=== PATIENT | female | born 1925 | race Caucasian/White ===

== ENCOUNTER 2016-08-29 14:31 | Inpatient (IN) ==
[2016-08-29] MEDS ORDERED: Acetaminophen 325 MG TABLET PO ONE (14:51)
--- NOTE | 2016-08-29 14:51 | Emergency Department Note ---
Disposition Clinical Impression: Generalized weakness, Sepsis affecting skin Cellulitis Qualifiers: Site of cellulitis: buttock Qualified Code(s): L03.317 - Cellulitis of buttock Disposition: Admitted As Inpatient Condition: Good Referrals: NO,PCP [Non-Partnered Physician] - Forms: ED Satisfaction Letter Time of Disposition: 20:16 General Adult HPI - General Chief complaint: ED Extremity Problem,Nontraumatic Stated complaint: " Leg Swelling" Time Seen by Provider: 08/29/16 14:32 Source: patient, EMS Mode of arrival: EMS Limitations: no limitations Nursing Notes Reviewed: Yes Vital Signs Reviewed: Yes - History of Present Illness HPI Narrative: 89-year-old female presents from home via EMS for generalized weakness and leg swelling. Patient lives at home by herself. Her children lived next door infrequently check on her. She is able to normally ambulate with a walker with some weakness. Today she has been more weak than usual. She says today she felt more lightheaded with the feeling of passing out when she got up to walk to the bathroom. She denies any fall or loss of consciousness today. Family reports a fall over a month ago. She only takes aspirin and a blood pressure medication she reports. She denies any history of congestive heart failure. Denies any history of cardiac ischemic disease. She denies any headache, fever , chest pain, shortness of breath, abdominal pain. Denies any urinary symptoms , bloody stool or blacked tarry stool. She denies any history of blood clots. She normally seen sitting in her chair was very independent she reports. Denies any surgeries in either leg. She denies any history of stroke. Pain Scale: 0 - Related Data Allergies Allergy/AdvReac Type Severity Reaction Status Date / Time No Known Allergies Allergy Verified 01/12/16 16:43 All systems ED: reviewed and negative except as stated. Constitutional: Reports: weakness. Denies: fever, chills Cardiovascular: Denies: chest pain Respiratory: Denies: cough, dyspnea Gastrointestinal: Denies: abdominal pain, nausea, vomiting, diarrhea, melena, hematochezia Genitourinary: Denies: urgency, dysuria Musculoskeletal: Denies: back pain, neck pain Integumentary: Denies: rash, abrasion Neurological: Reports: weakness. Denies: headache, numbness, vertigo Endocrine: Denies: fatigue Past Medical History - Past Medical History Attestation: Yes The following information was validated with the patient. Source: patient Medical history: Reports: GERD, hyperlipidemia, hypertension, CVA, TIA Surgical history: Reports: non-contributory Psychiatric history: Reports: no psych history COMPLIANCE PROFESSIONAL history: Reports: no COMPLIANCE PROFESSIONAL history - Social History Smoking Status: Never smoker Smokeless Tobacco Status: No Alcohol use: Reports: none Drug use: Reports: none Physical Exam - General Limitations: no limitations General appearance: alert, in no apparent distress - Head Head exam: atraumatic, normocephalic, normal inspection - Eye Eye exam: Present: normal appearance, PERRL, EOMI. Absent: scleral icterus - ENT ENT exam: normal exam, normal oropharynx, mucous membranes moist - Neck Neck exam: Present: normal inspection, full ROM, trachea midline - Chest Chest inspection: Present: normal inspection, symmetric chest wall rise. Absent : tenderness - Respiratory Respiratory exam: Present: normal lung sounds bilaterally. Absent: respiratory distress, wheezes - Cardiovascular Cardiovascular exam: Present: regular rate, normal rhythm, normal heart sounds. Absent: systolic murmur, diastolic murmur - Abdominal Exam Abdominal exam: Present: soft, Non-Tender, normal bowel sounds. Absent: tenderness, distention, guarding, rebound, rigidity - Rectal Exam Rectal exam: Present: other (left perirectal absecess, induration and erythema) - Extremities Exam Extremities exam: Present: normal inspection, full ROM, normal capillary refill , pedal edema (+2 pitting edema to left leg). Absent: tenderness, calf tenderness - Back Exam Back exam: Present: normal inspection, full ROM. Absent: tenderness, CVA tenderness (R), CVA tenderness (L), vertebral tenderness Back 1 view image: 1 - Area erythema and induration along the left buttocks concerning for possible abscess - Neurological Exam Neurological exam: Present: alert, oriented X3 - Expanded Neurological Exam Patient oriented to: Present: person, place, time Speech: Present: fluid speech Cranial nerves: EOM function (II, III, IV, ): Normal, facial sensation (V): Normal, facial palsy (VII): Normal, gag reflex (IX): Normal, spinal accessory function (XI): Normal, tongue deviation (XII): Normal Motor strength - LUE: 4/5 Motor strength - RUE: 4/5 Motor strength - LLE: 4/5 Motor strength - RLE: 4/5 - Psychiatric Psychiatric exam: Present: normal affect, normal mood - Skin Skin exam: Present: warm, dry, intact, normal color Course Course Narrative: 89-year-old female percents with concern of generalized weakness. Families at bedside and reports today she has been very weak and unable to get up. She had a recent fall month ago. The report the other day she was unable to get out of the toilet and this is something new. They also some swelling to the left lower extremity. Patient appears in no acute distress. She is awake alert and very pleasant. She is not septic appearing. She is tachycardic 100 and was found to have a elevated temperature 100.6. Aseptic workup was initiated which consisted of CT of the head, chest x-ray, urinalysis straight catheterization, basic blood work. Consideration for possible blood clot but patient does not meet the decision way pathway. At this time I do believe she is low risk for DVT. Patient and family are in agreement with this plan. Due to her generalized weakness will anticipate admission to the hospital she does live alone. - Reevaluation(s) Reevaluation #1: She has elevated white blood cell count 22.8. Patients non-septic appearing. Unable to find a source for infection. Head to toe examination was performed. She has a small abrasion to her left leg with some oozing, no signs of cellulitis. I rolled the patient on her side and checked her buttocks which reveals an area of erythema and induration that appears consistent with a bed sore and possible left perirectal abscess that appears to tract into the rectum. Will order a CT abd/pelvis with IV contrast. Lactate has been ordered. Blood cultures ordered. Anemia appears stable 9.7. Her sodium is 126. BNP and troponin are unremarkable. Believe her perirectal abscess is the source of her infection and white blood cell count. Patient family reports they noticed it yesterday. Patient reports a week ago falling onto her rocking chair. She denies any pain with defecation. Time: 17:10 Reevaluation #2: Patient has had a prior hip replacement. Due to some streaking artifacts the CT of the abdomen and pelvis was able unable to clearly depict any pocket of fluid. Clinically appeared to be in abscess however with bedside ultrasound there would only appear to be cellular changes in no pocket's or fluid. An incision and drainage was not performed at that time. At that time patient was very weak and unable to support herself or even sit up from laying. Patient is very weak. She will be appropriate for inpatient treatment of this cellulitis. Discuss this with the patient and the family and they are in agreement with plan. Placed on Unasyn for coverage of cellulitis. Impression is cellulitis, sepsis, generalized weakness. Time: 19:37 - Consultations Consultation #1: Spoke with on-call hospitalist lanette Weber to admit for sepsis, cellulitis , generalized weakness. No further orders at this time Time: 20:11 Vital Signs Temperature 100.6 F H 08/29/16 14:35 Pulse Rate 104 08/29/16 14:35 Respiratory Rate 18 08/29/16 14:35 Blood Pressure 164/69 08/29/16 14:35 O2 Sat by Pulse Oximetry 98 08/29/16 14:35 Temperature 100.6 F H 08/29/16 14:35 Pulse Rate 104 08/29/16 14:35 Respiratory Rate 18 08/29/16 14:35 Blood Pressure 164/69 08/29/16 14:35 O2 Sat by Pulse Oximetry 98 08/29/16 14:35 Oxygen Delivery Oxygen Delivery Room Air Medical Decision Making - Medical Records Medical records reviewed: Yes I reviewed the patient's medical records. - Lab Data Lab results reviewed: Yes I reviewed the patient's lab results. Result diagrams: 08/29/16 16:00 08/29/16 16:00 Lab Results 08/29/16 08/29/16 08/29/16 Range/Units 16:00 16:00 16:00 WBC 22.8 H (4.3-11.1) K/mcL RBC 3.45 L (3.82-4.97) M/mcL Hgb 9.7 L (11.5-15.4) g/dL Hct 28.2 L (35.3-44.9) % MCV 81.7 L (83.0-100.0) fL MCH 28.1 (28.0-33.3) pg MCHC 34.4 (31.6-35.5) g/dL RDW 14.2 (11.5-14.5) % Plt Count 201 (140-400) K/mcL MPV 9.4 (9.4-12.4) fL Immature Gran % 1.7 (0-4) % Seg Neutrophils % 90.2 % Lymphocytes % 2.5 % Monocytes % 5.5 % Eosinophils % 0.0 % Basophils % 0.1 % Neutrophils # 20.6 H (1.6-8.9) K/mcL Lymphocytes # 0.6 (0.6-4.6) K/mcL Monocytes # 1.3 (0.0-1.3) K/mcL Eosinophils # 0.0 (0.0-0.6) K/mcL Basophils # 0.0 (0.0-0.2) K/mcL Sodium 126 L (136-145) mEq/L Potassium 3.8 (3.5-4.5) mEq/L Chloride 95 L (98-109) mEq/L Carbon Dioxide 21 (19-29) mEq/L BUN 13 (7-20) mg/dL Creatinine 0.79 (0.57-1.11) mg/dL Est GFR ( Amer) > 60 (> 60) Est GFR (Non-Af Amer) > 60 (> 60) BUN/Creatinine Ratio 16 (6-26) Glucose 117 H (70-99) mg/dL Calculated Osmolality 263 L (280-300) Lactic Acid (0.5-2.2) mmol/L Calcium 8.5 L (8.6-10.8) mg/dL Total Bilirubin (0.2-1.2) mg/dL Direct Bilirubin (0.0-0.5) mg/dL Indirect Bilirubin (0.0-1.2) mg/dL AST (5-34) Units/L ALT (0-55) Units/L Alkaline Phosphatase (38-126) Units/L Troponin I (0-0.03) ng/mL B-Natriuretic Peptide (0-100) pg/mL Serum Total Protein (6.0-8.3) g/dL Albumin (3.5-5.0) g/dL Globulin (2.4-3.5) g/dL Albumin/Globulin Ratio (1.1-2.2) Lipase (8-78) Units/L Urine Color Yellow (Yellow) Urine Clarity Clear (Clear) Urine pH 7.0 (5.0-8.0) pH Units Ur Specific [place] 1.020 (1.010-1.025) Urine Protein Trace (Neg-Trace) mg/dL Urine Glucose (UA) Normal (Normal) mg/dL Urine Ketones Trace H (Negative) mg/dL Urine Blood Moderate H (Negative) Urine Nitrite Negative (Negative) Urine Bilirubin Negative (Negative) Urine Urobilinogen Normal (Normal) mg/dL Ur Leukocyte Esterase Negative (Negative) Urine Microscopic RBC 15-30 H (0-3) per hpf Urine Microscopic WBC 0-3 (0-3) per hpf Ur Squamous Epith Cells Moderate H (None-Few) per lpf Urine Bacteria None Seen (None-Few) per hpf Hyaline Casts None Seen (None-Few) per lpf Ur Culture Indicated? NO (NO) 08/29/16 08/29/16 08/29/16 Range/Units 16:00 16:00 16:00 WBC (4.3-11.1) K/mcL RBC (3.82-4.97) M/mcL Hgb (11.5-15.4) g/dL Hct (35.3-44.9) % MCV (83.0-100.0) fL MCH (28.0-33.3) pg MCHC (31.6-35.5) g/dL RDW (11.5-14.5) % Plt Count (140-400) K/mcL MPV (9.4-12.4) fL Immature Gran % (0-4) % Seg Neutrophils % % Lymphocytes % % Monocytes % % Eosinophils % % Basophils % % Neutrophils # (1.6-8.9) K/mcL Lymphocytes # (0.6-4.6) K/mcL Monocytes # (0.0-1.3) K/mcL Eosinophils # (0.0-0.6) K/mcL Basophils # (0.0-0.2) K/mcL Sodium (136-145) mEq/L Potassium (3.5-4.5) mEq/L Chloride (98-109) mEq/L Carbon Dioxide (19-29) mEq/L BUN (7-20) mg/dL Creatinine (0.57-1.11) mg/dL Est GFR ( Amer) (> 60) Est GFR (Non-Af Amer) (> 60) BUN/Creatinine Ratio (6-26) Glucose (70-99) mg/dL Calculated Osmolality (280-300) Lactic Acid (0.5-2.2) mmol/L Calcium (8.6-10.8) mg/dL Total Bilirubin 0.8 (0.2-1.2) mg/dL Direct Bilirubin 0.4 (0.0-0.5) mg/dL Indirect Bilirubin 0.4 (0.0-1.2) mg/dL AST 14 (5-34) Units/L ALT < 6 (0-55) Units/L Alkaline Phosphatase 78 (38-126) Units/L Troponin I 0.01 (0-0.03) ng/mL B-Natriuretic Peptide 88 (0-100) pg/mL Serum Total Protein 6.1 (6.0-8.3) g/dL Albumin 2.7 L (3.5-5.0) g/dL Globulin 3.4 (2.4-3.5) g/dL Albumin/Globulin Ratio 0.8 L (1.1-2.2) Lipase 4 L (8-78) Units/L Urine Color (Yellow) Urine Clarity (Clear) Urine pH (5.0-8.0) pH Units Ur Specific [place] (1.010-1.025) Urine Protein (Neg-Trace) mg/dL Urine Glucose (UA) (Normal) mg/dL Urine Ketones (Negative) mg/dL Urine Blood (Negative) Urine Nitrite (Negative) Urine Bilirubin (Negative) Urine Urobilinogen (Normal) mg/dL Ur Leukocyte Esterase (Negative) Urine Microscopic RBC (0-3) per hpf Urine Microscopic WBC (0-3) per hpf Ur Squamous Epith Cells (None-Few) per lpf Urine Bacteria (None-Few) per hpf Hyaline Casts (None-Few) per lpf Ur Culture Indicated? (NO) 08/29/16 Range/Units 16:00 WBC (4.3-11.1) K/mcL RBC (3.82-4.97) M/mcL Hgb (11.5-15.4) g/dL Hct (35.3-44.9) % MCV (83.0-100.0) fL MCH (28.0-33.3) pg MCHC (31.6-35.5) g/dL RDW (11.5-14.5) % Plt Count (140-400) K/mcL MPV (9.4-12.4) fL Immature Gran % (0-4) % Seg Neutrophils % % Lymphocytes % % Monocytes % % Eosinophils % % Basophils % % Neutrophils # (1.6-8.9) K/mcL Lymphocytes # (0.6-4.6) K/mcL Monocytes # (0.0-1.3) K/mcL Eosinophils # (0.0-0.6) K/mcL Basophils # (0.0-0.2) K/mcL Sodium (136-145) mEq/L Potassium (3.5-4.5) mEq/L Chloride (98-109) mEq/L Carbon Dioxide (19-29) mEq/L BUN (7-20) mg/dL Creatinine (0.57-1.11) mg/dL Est GFR ( Amer) (> 60) Est GFR (Non-Af Amer) (> 60) BUN/Creatinine Ratio (6-26) Glucose (70-99) mg/dL Calculated Osmolality (280-300) Lactic Acid 1.1 (0.5-2.2) mmol/L Calcium (8.6-10.8) mg/dL Total Bilirubin (0.2-1.2) mg/dL Direct Bilirubin (0.0-0.5) mg/dL Indirect Bilirubin (0.0-1.2) mg/dL AST (5-34) Units/L ALT (0-55) Units/L Alkaline Phosphatase (38-126) Units/L Troponin I (0-0.03) ng/mL B-Natriuretic Peptide (0-100) pg/mL Serum Total Protein (6.0-8.3) g/dL Albumin (3.5-5.0) g/dL Globulin (2.4-3.5) g/dL Albumin/Globulin Ratio (1.1-2.2) Lipase (8-78) Units/L Urine Color (Yellow) Urine Clarity (Clear) Urine pH (5.0-8.0) pH Units Ur Specific [place] (1.010-1.025) Urine Protein (Neg-Trace) mg/dL Urine Glucose (UA) (Normal) mg/dL Urine Ketones (Negative) mg/dL Urine Blood (Negative) Urine Nitrite (Negative) Urine Bilirubin (Negative) Urine Urobilinogen (Normal) mg/dL Ur Leukocyte Esterase (Negative) Urine Microscopic RBC (0-3) per hpf Urine Microscopic WBC (0-3) per hpf Ur Squamous Epith Cells (None-Few) per lpf Urine Bacteria (None-Few) per hpf Hyaline Casts (None-Few) per lpf Ur Culture Indicated? (NO) - Radiology Data Radiology results reviewed: Yes I reviewed the patient's radiology results. Chest X-Ray 08/29/16 14:51 IMPRESSION: No acute cardiopulmonary disease. D/ / Aroldo Verma MD / Aroldo Verma MD Interpreting Provider: Aroldo Verma MD Head CT 08/29/16 14:55 IMPRESSION: No acute intracranial abnormality. D/ / Michael Little MD / Michael Little MD Interpreting Provider: Michael Little MD Abdomen/Pelvis CT 08/29/16 17:09 IMPRESSION: 1. Ecchymosis or cellulitis of the left buttock. No drainable fluid collection is demonstrated. No evidence of perianal or perirectal abscess within the limits imposed by streak artifact 2. Distal common bile duct stones, status post cholecystectomy. Bile ducts are within normal limits in caliber. Recommend correlation with serum bilirubin 3. Colonic diverticulosis 4. Multiple thoracic and lumbar compression fractures of indeterminate age. If the patient has acute back pain, MRI would be able to determine acuity of these fractures D/ / Marcin Peñaloza MD / Marcin Peñaloza MD Interpreting Provider: Marcin Peñaloza MD Attestation Statement - Attestation Attestation: I examined this patient and my medical decision-making was reviewed with the DOORPERSON OR LUGGAGE PORTER/PA/Advanced Practice Nurse/Resident Physician. I agree with the documented findings, disposition and treatment plan as described except to the extent set forth below. will need to do CT to eval for perirectal abscess. could be cause of wbc count and fever. will need to be admitted. iv antibiotics.
[2016-08-29 16:08] LABS: Basophils % 0.1 %; Hematocrit 28.2 % (35.3-44.9); Hemoglobin 9.7 g/dL (11.5-15.4); Immature Granulocytes % 1.7 % (0-4); Lymphocytes # 0.6 K/mcL (0.6-4.6); Lymphocytes % 2.5 %; Mean Corpuscular HGB Conc 34.4 g/dL (31.6-35.5); Mean Corpuscular Hemoglobin 28.1 pg (28.0-33.3); Mean Corpuscular Volume 81.7 fL (83.0-100.0); Mean Platelet Volume 9.4 fL (9.4-12.4); Monocytes # 1.3 K/mcL (0.0-1.3); Monocytes % 5.5 %; Neutrophils # 20.6 K/mcL (1.6-8.9); Platelet Count 201 K/mcL (140-400); Red Blood Count 3.45 M/mcL (3.82-4.97); Red Cell Distribution Width 14.2 % (11.5-14.5); Segmented Neutrophils % 90.2 %
[2016-08-29 16:12] LABS: Bilirubin,Urine Negative (Negative); Blood,Urine Moderate (Negative); Clarity,Urine Clear (Clear); Color,Urine Yellow (Yellow); Glucose,Urine (UA) Normal (Normal); Ketones,Urine Trace mg/dL (Negative); Leukocyte Esterase,Urine Negative (Negative); Nitrite,Urine Negative (Negative); Protein,Urine Trace mg/dL (Neg-Trace); Urobilinogen,Urine Normal (Normal)
[2016-08-29 16:13] LABS: Bacteria,Urine None Seen per hpf (None-Few); Hyaline Casts,Urine None Seen per lpf (None-Few); RBC,Urine 15-30 per hpf (0-3); Squamous Epithelial Cell,Urine Moderate per lpf (None-Few); WBC,Urine 0-3 per hpf (0-3)
[2016-08-29 16:22] LABS: BUN/Creatinine Ratio 16 (6-26); Blood Urea Nitrogen 13 mg/dL (7-20); Calcium 8.5 mg/dL (8.6-10.8); Carbon Dioxide 21 mEq/L (19-29); Chloride 95 mEq/L (98-109); Glucose 117 mg/dL (70-99); Osmolality,Calculated 263 (280-300); Potassium 3.8 mEq/L (3.5-4.5); Sodium 126 mEq/L (136-145); eGFR For African Americans > 60 (> 60); eGFR For Non-African Americans > 60 (> 60)
[2016-08-29] MEDS ORDERED: 0.9 % Sodium Chloride 1,000 ML IVC ONE (16:44)
[2016-08-29 16:56] LABS: Albumin 2.7 g/dL (3.5-5.0); Albumin/Globulin Ratio 0.8 (1.1-2.2); Alkaline Phosphatase 78 Units/L (38-126); Aspartate Amino Transferase 14 Units/L (5-34); Bilirubin,Direct 0.4 mg/dL (0.0-0.5); Bilirubin,Indirect 0.4 mg/dL (0.0-1.2); Bilirubin,Total 0.8 mg/dL (0.2-1.2); Globulin 3.4 g/dL (2.4-3.5); Lipase 4 Units/L (8-78); Total Protein 6.1 g/dL (6.0-8.3)
[2016-08-29 16:57] LABS: Alanine Aminotransferase < 6 Units/L (0-55)
[2016-08-29] MEDS ORDERED: Propofol 500 MG/50 ML INFUS..BTL ONE (17:45)
[2016-08-29] MEDS ORDERED: Lidocaine 1% 20 ML MDV ID ONE (18:39)
[2016-08-29] MEDS ORDERED: Ampicillin/Sulbactam 1,500 MG in 0.9 % Sodium Chloride Mini Bag 100 ML IVPB ONE (20:07)
[2016-08-29] MEDS ORDERED: Naloxone 0.4 MG/ML INJ IVP PRN (22:33)
[2016-08-29] MEDS ORDERED: Acetaminophen 325 MG TABLET PO PRN (22:33)
[2016-08-29] MEDS ORDERED: Ondansetron 4 MG/2 ML VIAL IVP PRN (22:33)
[2016-08-29] MEDS ORDERED: D5% in Water 1,000 ML IVC PRN (22:36)
[2016-08-29] MEDS ORDERED: Dextrose Gel 15 GM PO PRN ×2 (22:36)
[2016-08-29] MEDS ORDERED: *HR* Dextrose 50 % in Water (Syg) 50 ML SYRINGE IVP PRN (22:36)
[2016-08-29 22:49] LABS: Hemoglobin A1C 4.9 %
--- NOTE | 2016-08-29 22:51 | Internal Med History&Physical ---
Date of Encounter: 08/30/16 Time of Encounter: 23:00 Assessment and Plan (1) Sepsis Current visit: Yes Status: Acute Sepsis - present on admission, likely secondary to acute cellulitis of left buttock with probable gluteal abscess - possible gram-positive organism Continue IV Zosyn and IV vancomycin Continue IV fluids CT of the head is negative for any acute intracranial abnormality Chest x-ray is negative for any acute cardiopulmonary disease CT of the abdomen and pelvis reveals ecchymosis and cellulitis of left buttock with no drainable fluid EKG reveals sinus tachycardia with no acute ST-T changes, troponin negative Labs in a.m. Qualifiers: Sepsis type: sepsis due to unspecified organism Qualified Code(s): A41.9 - Sepsis, unspecified organism (2) Cellulitis Current visit: Yes Status: Acute Cellulitis of left buttock, possible abscess with induration Continue IV antibiotics CT shows cellulitis of left buttock with no drainable fluid collection Bedside ultrasound done in the ED did not reveal any pockets of fluid collection Qualifiers: Site of cellulitis: buttock Qualified Code(s): L03.317 - Cellulitis of buttock (3) DVT prophylaxis Current visit: Yes Status: Acute Internal Medicine - H&P: HPI Chief complaint: Generalized weakness Admitted From: Emergency Dept History of present illness: Ms. Littlejohn is a 89 year old female with past medical history of hypertension and hyperlipidemia. She presents to the ED with complaints of generalized weakness that started about 1-2 days ago. Patient states she is normally able to ambulate with walker, but she has been feeling weak and more fatigued than usual. Patient apparently had some lightheadedness and thinks that she was about to pass out when she was about to walk to the bathroom. No loss of consciousness and no fall. Patient states she lives by herself and her children check on her. She did have a fall about a month ago. Patient denies chest pain and denies shortness. Denies palpitations denies dizziness or cough at present. Patient also denies abdominal pain, vomiting or diarrhea. On examination patient is awake and alert. Not in any distress. She is able to provide all history and is oriented to time place and person. No family members at the time of examination. Patient also complains of having a small boil or sore on her right buttock. Complains of mild pain at times. No complaints of discharge. She mentions that her children have told her to be evaluated for the boil. Initially workup revealed elevated white count, fever and cellulitis of the left buttock. No evidence of perianal or perirectal abscess. Patient is being admitted for sepsis, likely due to cellulitis of the gluteal region. She will need IV antibiotics and fluids. Patient has been explained about her condition and plan of care. She understood and agreed. No unanswered questions. CODE STATUS DO NOT RESUSCITATE and DO NOT INTUBATE status. Past Med Surg Social Fam HX - Past Medical History Medical history: GERD, hyperlipidemia, hypertension, TIA Psychiatric history: no psych history - Past Surgical History Surgical History: non-contributory - Social History Smoking Status: Never smoker Smokeless Tobacco Status: No Alcohol use: none Drug use: none Internal Medicine - H&P: Meds Allergies No Known Allergies Allergy (Verified 01/12/16 16:43) All Systems PM: A 10-system review of systems was performed and is negative for pertinent findings except as documented above in the HPI. - Constitutional Constitutional: fatigue, weakness, no fever(s) - EENT Eyes: no blurry vision, no loss of vision - Cardiovascular Cardiovascular ROS IM: no chest pain, no diaphoresis, no dyspnea, no dyspnea on exertion, no lightheadedness, no syncope - Respiratory Respiratory: no cough, no dyspnea, no hemoptysis, no dyspnea on exertion, no wheezing, no chest congestion - Gastrointestinal Gastrointestinal: no abdominal pain, no cramping, no diarrhea, no nausea, no vomiting - Genitourinary Genitourinary: no dysuria - Musculoskeletal Musculoskeletal ROS IM: no arthralgias - Integumentary Integumentary IM: erythema, sores - Neurological Neurological ROS: dizziness, no abnormal gait, no abnormal speech, no focal weakness, no loss of vision - Constitutional Vitals: Temp Pulse Resp BP Pulse Ox 98.3 F 93 14 127/67 98 08/29/16 21:31 08/29/16 21:31 08/29/16 21:31 08/29/16 21:31 08/29/16 21:31 General appearance: Present: cachectic, A&O X 3, pleasant, no acute distress, answers questions appropriately - Head Head exam: Present: atraumatic - Eye Eye exam: Present: EOMI - ENT ENT exam: Present: mucous membranes moist - Neck Neck exam general surgery: Present: supple - Respiratory Respiratory exam: Present: CTAB. Absent: rales, rhonchi, wheezes, tachypnea - Cardiovascular Cardiovascular exam: Present: RRR, +S1, +S2 - GI/Abdominal GI/Abdominal exam: Present: soft. Absent: distended, firm, guarding, tenderness - Extremities Exam Extremities exam: Present: radial pulses palpable and symetrical. Absent: cyanotic, pedal edema - Neurological Exam Neurological exam: Present: alert, oriented X3, no focal deficits - Skin Skin exam: Present: erythema Additional comments: Erythema and mild tenderness over left gluteal region, cellulitis, possible abscess with induration Internal Med - H&P Results - Labs CBC & Chem 7: 08/29/16 16:00 08/29/16 16:00
[2016-08-29] MEDS ORDERED: Vancomycin 750 MG in D5% in Water 250 ML IVPB ONE (23:30)
[2016-08-29] MEDS: Piperacillin/Tazobactam 3.375 GM in D5% in Water (Mini-Bag+) 100 ML IVPB SCH (23:39)
[2016-08-29] MEDS: 0.9 % Sodium Chloride 1,000 ML IVC SCH (23:39)
[2016-08-30] MEDS: Insulin LISPRO 300 UNITS/3 ML VIAL SQ SCH ×4 (00:44→18:13)
[2016-08-30 04:26] LABS: Hematocrit 25.9 % (35.3-44.9); Hemoglobin 8.7 g/dL (11.5-15.4); Mean Corpuscular HGB Conc 33.6 g/dL (31.6-35.5); Mean Corpuscular Hemoglobin 27.3 pg (28.0-33.3); Mean Corpuscular Volume 81.2 fL (83.0-100.0); Mean Platelet Volume 9.5 fL (9.4-12.4); Platelet Count 200 K/mcL (140-400); Red Blood Count 3.19 M/mcL (3.82-4.97); Red Cell Distribution Width 13.9 % (11.5-14.5)
[2016-08-30 04:30] LABS: INR 1.4; Prothrombin Time 15.7 Seconds (9.4-12.1)
[2016-08-30 04:43] LABS: Albumin/Globulin Ratio 0.7 (1.1-2.2); Alkaline Phosphatase 71 Units/L (38-126); Aspartate Amino Transferase 11 Units/L (5-34); BUN/Creatinine Ratio 17 (6-26); Bilirubin,Total 0.9 mg/dL (0.2-1.2); Blood Urea Nitrogen 12 mg/dL (7-20); Calcium 7.7 mg/dL (8.6-10.8); Carbon Dioxide 21 mEq/L (19-29); Chloride 99 mEq/L (98-109); Globulin 2.9 g/dL (2.4-3.5); Glucose 123 mg/dL (70-99); Magnesium 1.1 mg/dL (1.6-2.6); Osmolality,Calculated 261 (280-300); Potassium 3.4 mEq/L (3.5-4.5); Sodium 125 mEq/L (136-145); eGFR For African Americans > 60 (> 60); eGFR For Non-African Americans > 60 (> 60)
[2016-08-30 04:44] LABS: Alanine Aminotransferase < 6 Units/L (0-55); Albumin 2.1 g/dL (3.5-5.0)
[2016-08-30 04:55] LABS: Lymphocytes # 0.9 K/mcL (0.6-4.6); Neutrophils # 20.5 K/mcL (1.6-8.9)
[2016-08-30 04:56] LABS: Platelet Estimate Normal (Normal)
[2016-08-30] MEDS ORDERED: Vancomycin 1,000 MG in D5% in Water 250 ML IVPB SCH (06:00)
[2016-08-30] MEDS: *HR* Heparin 5,000 UNIT/ML VIAL SQ SCH ×2 (06:06→18:18)
[2016-08-30] MEDS: Famotidine 20 MG/2 ML VIAL IVP SCH ×2 (06:06→18:19)
[2016-08-30] MEDS ORDERED: Potassium Chloride Elixir 20 MEQ/15 ML UDC PO ONE (08:07)
--- NOTE | 2016-08-30 08:13 | Internal Med Progress Note ---
Date of Encounter: 09/10/16 Time of Encounter: 08:10 - Assessment and plan (1) SIRS due to infectious process without acute organ dysfunction Status: Acute (2) Abscess, gluteal, left Status: Acute (3) Hyponatremia Status: Acute (4) Hypokalemia Status: Acute (5) Cellulitis Status: Acute Qualifiers: Site of cellulitis: buttock Qualified Code(s): L03.317 - Cellulitis of buttock (6) DVT prophylaxis Status: Acute - Subjective Interval history: 08/30 Ms. Tae Shelton is an 89-year-old female admitted for left gluteal abscess/ cellulitis, hyponatremia and hypokalemia. Patient complain of fatigue/ dizziness and a fall at home a month ago. She is on IV vancomycin and Zosyn. She is a DNR order CBC and CMP daily and continue antibiotics while cultures are pending Later during the day she became slightly confused will be reevaluated - Constitutional Vitals: Temp Pulse Resp BP Pulse Ox 97.7 F 87 14 123/61 97 08/30/16 05:58 08/30/16 05:35 08/30/16 05:35 08/30/16 05:35 08/30/16 05:35 General appearance: Present: cachectic, A&O X 3, pleasant, no acute distress, answers questions appropriately - Head Head exam: Present: atraumatic, normocephalic - Eye Eye exam: Present: PERRL, conjuntiva pink, sclera anicteric Pupils: Present: PERRL - Neck Neck exam general surgery: Present: supple, trachea midline. Absent: lymphadenopathy - Respiratory Respiratory exam: Present: CTAB. Absent: accessory muscle use, rales, rhonchi, wheezes - Cardiovascular Cardiovascular exam: Present: RRR, +S1, +S2. Absent: diastolic murmur, gallop, rubs, systolic murmur - GI/Abdominal GI/Abdominal exam: Present: normal bowel sounds, soft, no peritoneal signs. Absent: distended, tenderness - Extremities Exam Extremities exam: Present: warm, radial pulses palpable and symetrical. Absent : calf tenderness, cyanotic, pedal edema - Neurological Exam Neurological exam: Present: CN II-XII intact, no focal deficits. Absent: pronater drift, facial droop, speech deficit Additional comments: Patient is slightly confused but very pleasant answer my questions well and follow the commands. Moving all extremities plantars downward bilaterally - Skin Skin exam: Present: dry, intact Internal Medicine: Result - Labs CBC & Chem 7: 09/03/16 04:54 09/03/16 04:54 Labs: Short CBC 08/30/16 Range/Units 04:05 WBC 21.4 H (4.3-11.1) K/mcL Hgb 8.7 L (11.5-15.4) g/dL Hct 25.9 L (35.3-44.9) % Plt Count 200 (140-400) K/mcL Neutrophils # 20.5 H (1.6-8.9) K/mcL BMP 08/30/16 04:05 Sodium 125 L Potassium 3.4 L Chloride 99 Carbon Dioxide 21 BUN 12 Creatinine 0.72 Glucose 123 H Calcium 7.7 L Liver Function 08/30/16 Range/Units 04:05 Total Bilirubin 0.9 (0.2-1.2) mg/dL AST 11 (5-34) Units/L ALT < 6 (0-55) Units/L Alkaline Phosphatase 71 (38-126) Units/L Albumin 2.1 L D (3.5-5.0) g/dL - ABG Interpretation ABG results: PT/INR, D-dimer PT 15.7 Seconds (9.4-12.1) H 08/30/16 04:05 Consult Discharge Plan - Plan Referrals: Estuardo Wong DO [Primary Care Provider] - Prescriptions: Doxycycline 100 mg PO BID #14 capsule
[2016-08-30] MEDS: Aspirin 81 MG TAB.CHEW PO SCH (08:45)
[2016-08-30] MEDS ORDERED: Vancomycin 750 MG in D5% in Water 250 ML IVPB ONE (12:28)
[2016-08-30] MEDS ORDERED: Magnesium Sulfate 2 GM in D5% in Water 100 ML IVPB ONE (12:34)
[2016-08-30] MEDS: Piperacillin/Tazobactam 3.375 GM in D5% in Water (Mini-Bag+) 100 ML IVPB SCH (12:36)
--- NOTE | 2016-08-30 13:39 | Electrocardiograph Report ---
[place] [id number] Test Date: 2016-08-29 Pat Name: Nishi Littlejohn Department: 102 Room: 3A12 Gender: F Billing Collections Specialist: : [id number] Requested By: Martin Juarez Order Number: [id number] Reading MD: Dimitris Iyer MD Measurements Intervals [place] Rate: 104 P: 59 [place]: 171 QRS: 35 QRSD: 74 T: 60 QT: 291 QTc: 352 Interpretive Statements SINUS TACHYCARDIA WITH OCCASIONAL VENTRICULAR PREMATURE COMPLEXES BASELINE ARTIFACT Electronically Signed On 08-30-2016 13:37:57 EDT by Dimitris Iyer MD
[2016-08-31] MEDS: Insulin LISPRO 300 UNITS/3 ML VIAL SQ SCH ×2 (01:18→08:10)
[2016-08-31] MEDS: Piperacillin/Tazobactam 3.375 GM in D5% in Water (Mini-Bag+) 100 ML IVPB SCH ×3 (01:31→23:22)
[2016-08-31] MEDS: 0.9 % Sodium Chloride 1,000 ML IVC SCH ×3 (01:31→23:17)
[2016-08-31 06:01] LABS: Hemoglobin 8.5 g/dL (11.5-15.4); Mean Corpuscular Hemoglobin 27.9 pg (28.0-33.3); Mean Platelet Volume 9.7 fL (9.4-12.4); Platelet Count 196 K/mcL (140-400); Red Blood Count 3.05 M/mcL (3.82-4.97); Red Cell Distribution Width 14.2 % (11.5-14.5)
[2016-08-31] MEDS: Famotidine 20 MG/2 ML VIAL IVP SCH (06:07)
[2016-08-31] MEDS: *HR* Heparin 5,000 UNIT/ML VIAL SQ SCH ×2 (06:07→18:37)
[2016-08-31 06:17] LABS: Albumin/Globulin Ratio 0.6 (1.1-2.2); Alkaline Phosphatase 69 Units/L (38-126); Aspartate Amino Transferase 9 Units/L (5-34); BUN/Creatinine Ratio 11 (6-26); Bilirubin,Total 0.8 mg/dL (0.2-1.2); Blood Urea Nitrogen 9 mg/dL (7-20); Calcium 7.7 mg/dL (8.6-10.8); Carbon Dioxide 21 mEq/L (19-29); Chloride 100 mEq/L (98-109); Glucose 101 mg/dL (70-99); Osmolality,Calculated 263 (280-300); Potassium 3.4 mEq/L (3.5-4.5); Sodium 127 mEq/L (136-145); Total Protein 4.9 g/dL (6.0-8.3); eGFR For African Americans > 60 (> 60); eGFR For Non-African Americans > 60 (> 60)
[2016-08-31 06:18] LABS: Alanine Aminotransferase < 6 Units/L (0-55); Albumin 1.9 g/dL (3.5-5.0)
[2016-08-31 06:40] LABS: Lymphocytes # 0.7 K/mcL (0.6-4.6); Monocytes # 0.7 K/mcL (0.0-1.3); Neutrophils # 16.4 K/mcL (1.6-8.9); Platelet Estimate Normal (Normal)
[2016-08-31] MEDS ORDERED: Potassium Chloride Elixir 20 MEQ/15 ML UDC PO ONE (07:54)
[2016-08-31] MEDS ORDERED: Vancomycin 1,000 MG in D5% in Water 250 ML IVPB ONE (07:55)
[2016-08-31] MEDS: Aspirin 81 MG TAB.CHEW PO SCH (08:10)
[2016-08-31] MEDS ORDERED: Lidocaine 1% 20 ML MDV INFILT ONE (14:00)
--- NOTE | 2016-08-31 14:34 | General Surgery Consult Note ---
<Marnie Carrera Tiffanie - Last Filed: 09/01/16 15:30> Date of Encounter: 09/01/16 Time of Encounter: 10:15 Assessment and Plan (1) Abscess, gluteal, left Current Visit: Yes Status: Acute I&D of abscess Wound cultures- gram stain, aerobic and anaerobic Wound care daily- will transfer to [facility] at discharge Supportive care/pain control IV antibiotics- Zosyn and Vancomycin (await culture results) Will continue to follow and assess progress History of Present Illness Consult date: 08/31/16 Reason for consult: other (left buttock abscess/cellulitis) Requesting physician: Karen Webb History of present illness: Ms. Littlejohn is a very pleasant 89-year-old female who presented to the emergency department at the request of her family with complaints of generalized weakness. She was admitted to the hospital for further workup and evaluation. The family reports much of the history is the patient is pleasantly confused secondary to her dementia. They do report that she has had a sore area to her left buttock for approximately 1 week. It has been red and inflamed and started draining in the last couple of days. They report purulent drainage from the area. She has never had any areas like this in the past. She does have an elevated white blood cell count. Denies any fevers or chills. We have been asked to see and evaluate her for incision and drainage of the affected area to the left buttock. Past Med Surg Social Fam HX - Past Medical History Medical history: GERD, hyperlipidemia, hypertension, TIA Psychiatric history: no psych history - Past Surgical History Surgical History: non-contributory - Social History Smoking Status: Never smoker Smokeless Tobacco Status: No Alcohol use: none Drug use: none Medications and Allergies Aspirin 81 mg PO DAILY 08/30/16 [History] Ferrous Sulfate [Iron] 325 mg PO DAILY 08/30/16 [History] Lisinopril [Zestril] 5 mg PO DAILY 08/30/16 [History] Magnesium Oxide [Mgo] 400 mg PO DAILY 08/30/16 [History] Omeprazole [PriLOSEC] 20 mg PO DAILY 08/30/16 [History] Allergies No Known Allergies Allergy (Verified 01/12/16 16:43) Review of Systems All systems PM: reviewed and no additional remarkable complaints except as stated (in the HPI (focal history)) All systems PM: A 10-system review of systems was performed and is negative for pertinent findings except as documented above in the HPI. General Surgery Exam Initial Vital Signs Temp Pulse Resp BP Pulse Ox 100.6 F H 104 18 164/69 98 08/29/16 14:35 08/29/16 14:35 08/29/16 14:35 08/29/16 14:35 08/29/16 14:35 - General physical appearance well developed, well nourished, no distress, other (pleasantly confused) - Eyes normal ocular movement - ENT normal mucosa, atraumatic, normocephalic - Neck trachea midline - Respiratory normal respiratory effort, clear to auscultation - Cardiovascular Cardiovascular exam: Present: RRR - Abdomen Abdomen general surgery: Present: bowel sounds present, soft, non tender - Incision Incision: Present: draining, erythema, purulent, indurated, open (left buttock) - Integumentary Integumentary general surgery: Present: warm and dry - Neurologic Present: CN 2-12 grossly intact - Musculoskeletal Present: other (generalized weakness) - Psychiatric Psychiatric general surgery: Present: appropriate, oriented to person, speech is normal Exam Initial Vital Signs Temp Pulse Resp BP Pulse Ox 100.6 F H 104 18 164/69 98 08/29/16 14:35 08/29/16 14:35 08/29/16 14:35 08/29/16 14:35 08/29/16 14:35 Results - Labs 09/01/16 04:40 09/01/16 04:40 Abnormal lab results WBC 17.8 K/mcL (4.3-11.1) H 08/31/16 05:42 RBC 3.05 M/mcL (3.82-4.97) L 08/31/16 05:42 Hgb 8.5 g/dL (11.5-15.4) L 08/31/16 05:42 Hct 25.0 % (35.3-44.9) L 08/31/16 05:42 MCV 82.0 fL (83.0-100.0) L 08/31/16 05:42 MCH 27.9 pg (28.0-33.3) L 08/31/16 05:42 Band Neutrophils % 18.0 % (0-4) H 08/31/16 05:42 Neutrophils # 16.4 K/mcL (1.6-8.9) H 08/31/16 05:42 PT 15.7 Seconds (9.4-12.1) H 08/30/16 04:05 Sodium 127 mEq/L (136-145) L 08/31/16 05:42 Potassium 3.4 mEq/L (3.5-4.5) L 08/31/16 05:42 Glucose 101 mg/dL (70-99) H 08/31/16 05:42 POC Glucose 123 (58-89) H 08/30/16 16:10 Calculated Osmolality 263 (280-300) L 08/31/16 05:42 Calcium 7.7 mg/dL (8.6-10.8) L 08/31/16 05:42 Magnesium 1.1 mg/dL (1.6-2.6) L 08/30/16 04:05 Serum Total Protein 4.9 g/dL (6.0-8.3) L 08/31/16 05:42 Albumin 1.9 g/dL (3.5-5.0) L 08/31/16 05:42 Albumin/Globulin Ratio 0.6 (1.1-2.2) L 08/31/16 05:42 Lipase 4 Units/L (8-78) L 08/29/16 16:00 Urine Ketones Trace mg/dL (Negative) H 08/29/16 16:00 Urine Blood Moderate (Negative) H 08/29/16 16:00 Urine Microscopic RBC 15-30 per hpf (0-3) H 08/29/16 16:00 Ur Squamous Epith Cells Moderate per lpf (None-Few) H 08/29/16 16:00 Vancomycin Trough 8.9 mcg/mL (10-20) L 08/31/16 05:42 Diabetes panel 08/31/16 Range/Units 05:42 Sodium 127 L (136-145) mEq/L Potassium 3.4 L (3.5-4.5) mEq/L Chloride 100 (98-109) mEq/L Carbon Dioxide 21 (19-29) mEq/L BUN 9 (7-20) mg/dL Creatinine 0.80 (0.57-1.11) mg/dL Glucose 101 H (70-99) mg/dL Calcium 7.7 L (8.6-10.8) mg/dL AST 9 (5-34) Units/L ALT < 6 (0-55) Units/L Alkaline Phosphatase 69 (38-126) Units/L Albumin 1.9 L (3.5-5.0) g/dL Calcium panel 08/31/16 Range/Units 05:42 Calcium 7.7 L (8.6-10.8) mg/dL Albumin 1.9 L (3.5-5.0) g/dL Pituitary panel 08/31/16 Range/Units 05:42 Sodium 127 L (136-145) mEq/L Potassium 3.4 L (3.5-4.5) mEq/L Chloride 100 (98-109) mEq/L Carbon Dioxide 21 (19-29) mEq/L BUN 9 (7-20) mg/dL Creatinine 0.80 (0.57-1.11) mg/dL Glucose 101 H (70-99) mg/dL Calcium 7.7 L (8.6-10.8) mg/dL Adrenal panel 08/31/16 Range/Units 05:42 Sodium 127 L (136-145) mEq/L Potassium 3.4 L (3.5-4.5) mEq/L Chloride 100 (98-109) mEq/L Carbon Dioxide 21 (19-29) mEq/L BUN 9 (7-20) mg/dL Creatinine 0.80 (0.57-1.11) mg/dL Glucose 101 H (70-99) mg/dL Calcium 7.7 L (8.6-10.8) mg/dL Total Bilirubin 0.8 (0.2-1.2) mg/dL AST 9 (5-34) Units/L ALT < 6 (0-55) Units/L Alkaline Phosphatase 69 (38-126) Units/L Albumin 1.9 L (3.5-5.0) g/dL All other labs normal. - Imaging Additional studies: Chest X-Ray 08/29/16 14:51 IMPRESSION: No acute cardiopulmonary disease. D/ / Aroldo Verma MD / Aroldo Verma MD Interpreting Provider: Aroldo Verma MD Head CT 08/29/16 14:55 IMPRESSION: No acute intracranial abnormality. D/ / Michael Little MD / Michael Little MD Interpreting Provider: Michael Little MD Abdomen/Pelvis CT 08/29/16 17:09 IMPRESSION: 1. Ecchymosis or cellulitis of the left buttock. No drainable fluid collection is demonstrated. No evidence of perianal or perirectal abscess within the limits imposed by streak artifact 2. Distal common bile duct stones, status post cholecystectomy. Bile ducts are within normal limits in caliber. Recommend correlation with serum bilirubin 3. Colonic diverticulosis 4. Multiple thoracic and lumbar compression fractures of indeterminate age. If the patient has acute back pain, MRI would be able to determine acuity of these fractures D/ / Marcin Peñaloza MD / Marcin Peñaloza MD Interpreting Provider: Marcin Peñaloza MD Consult Discharge Plan - Plan Referrals: Estuardo Wong DO [Primary Care Provider] - 09/13/16 1:30 pm - Attending Attestation I examined this patient and my medical decision-making was reviewed with the FOOD PRODUCTION MACHINE OPERATOR/PA/Advanced Practice Nurse/Resident Physician. I agree with the documented findings, disposition and treatment plan as described except to the extent set forth below. <Sea Cobb - Last Filed: 09/01/16 16:55> Date of Encounter: 09/01/16 Review of Systems All systems PM: A 10-system review of systems was performed and is negative for pertinent findings except as documented above in the HPI. General Surgery Exam Initial Vital Signs Temp Pulse Resp BP Pulse Ox 100.6 F H 104 18 164/69 98 08/29/16 14:35 08/29/16 14:35 08/29/16 14:35 08/29/16 14:35 08/29/16 14:35 Exam Initial Vital Signs Temp Pulse Resp BP Pulse Ox 100.6 F H 104 18 164/69 98 08/29/16 14:35 08/29/16 14:35 08/29/16 14:35 08/29/16 14:35 08/29/16 14:35 Results - Labs 09/01/16 04:40 09/01/16 04:40 Abnormal lab results WBC 12.9 K/mcL (4.3-11.1) H 09/01/16 04:40 RBC 3.03 M/mcL (3.82-4.97) L 09/01/16 04:40 Hgb 8.1 g/dL (11.5-15.4) L 09/01/16 04:40 Hct 24.7 % (35.3-44.9) L 09/01/16 04:40 MCV 81.5 fL (83.0-100.0) L 09/01/16 04:40 MCH 26.7 pg (28.0-33.3) L 09/01/16 04:40 Band Neutrophils % 20.0 % (0-4) H 09/01/16 04:40 Neutrophils # 11.9 K/mcL (1.6-8.9) H 09/01/16 04:40 Lymphocytes # 0.5 K/mcL (0.6-4.6) L 09/01/16 04:40 Toxic Granulation Present (Not Present) A 09/01/16 04:40 PT 15.7 Seconds (9.4-12.1) H 08/30/16 04:05 Sodium 129 mEq/L (136-145) L 09/01/16 04:40 POC Glucose 94 (58-89) H 08/31/16 08:05 Calculated Osmolality 265 (280-300) L 09/01/16 04:40 Calcium 7.6 mg/dL (8.6-10.8) L 09/01/16 04:40 Magnesium 1.1 mg/dL (1.6-2.6) L 08/30/16 04:05 Serum Total Protein 4.7 g/dL (6.0-8.3) L 09/01/16 04:40 Albumin 1.8 g/dL (3.5-5.0) L 09/01/16 04:40 Albumin/Globulin Ratio 0.6 (1.1-2.2) L 09/01/16 04:40 Lipase 4 Units/L (8-78) L 08/29/16 16:00 Urine Ketones Trace mg/dL (Negative) H 08/29/16 16:00 Urine Blood Moderate (Negative) H 08/29/16 16:00 Urine Microscopic RBC 15-30 per hpf (0-3) H 08/29/16 16:00 Ur Squamous Epith Cells Moderate per lpf (None-Few) H 08/29/16 16:00 Vancomycin Trough 4.6 mcg/mL (10-20) L 09/01/16 04:40 Diabetes panel 09/01/16 Range/Units 04:40 Sodium 129 L (136-145) mEq/L Potassium 3.5 (3.5-4.5) mEq/L Chloride 106 (98-109) mEq/L Carbon Dioxide 19 (19-29) mEq/L BUN 7 (7-20) mg/dL Creatinine 0.75 (0.57-1.11) mg/dL Glucose 87 (70-99) mg/dL Calcium 7.6 L (8.6-10.8) mg/dL AST 7 (5-34) Units/L ALT < 6 (0-55) Units/L Alkaline Phosphatase 63 (38-126) Units/L Albumin 1.8 L (3.5-5.0) g/dL Calcium panel 09/01/16 Range/Units 04:40 Calcium 7.6 L (8.6-10.8) mg/dL Albumin 1.8 L (3.5-5.0) g/dL Pituitary panel 09/01/16 Range/Units 04:40 Sodium 129 L (136-145) mEq/L Potassium 3.5 (3.5-4.5) mEq/L Chloride 106 (98-109) mEq/L Carbon Dioxide 19 (19-29) mEq/L BUN 7 (7-20) mg/dL Creatinine 0.75 (0.57-1.11) mg/dL Glucose 87 (70-99) mg/dL Calcium 7.6 L (8.6-10.8) mg/dL Adrenal panel 09/01/16 Range/Units 04:40 Sodium 129 L (136-145) mEq/L Potassium 3.5 (3.5-4.5) mEq/L Chloride 106 (98-109) mEq/L Carbon Dioxide 19 (19-29) mEq/L BUN 7 (7-20) mg/dL Creatinine 0.75 (0.57-1.11) mg/dL Glucose 87 (70-99) mg/dL Calcium 7.6 L (8.6-10.8) mg/dL Total Bilirubin 0.5 (0.2-1.2) mg/dL AST 7 (5-34) Units/L ALT < 6 (0-55) Units/L Alkaline Phosphatase 63 (38-126) Units/L Albumin 1.8 L (3.5-5.0) g/dL All other labs normal. - Attending Attestation The patient is seen and evaluated on morning rounds. She had incision and drainage with a minimal amount of purulent extraction. She will be maintained on antibiotic therapy. She may require follow-up in the wound clinic until completely healed. She is very frail and wound healing will be delayed. Sea Cobb MD FACS
--- NOTE | 2016-08-31 14:34 | General Surgery Procedure Note ---
Date of procedure: 08/31/16 Pre-op diagnosis: Left buttock abscess Post-op diagnosis: same Procedure: After informed consent was obtained and a timeout performed, the patient was placed in the right lateral position. Her left buttock was prepped with Betadine swabs. After prepping with Betadine, the affected area was localized with 10 mL's of 1% lidocaine. After achieving appropriate localization, a cruciate incision was made over the most fluctuant area of the abscess. There was immediate drainage of a small amount of purulent discharge. Cultures were obtained for aerobic, anaerobic and Gram stain. After decompressing the cavity , it was packed with a quarter inch plain gauze covered with 4 x 4 dressing and taped to secure. The patient tolerated the procedure well. Complications: none Anesthesia: local (10ml 1% lidocaine) Surgeon: Marnie Carrera Estimated blood loss (cc): 1 Pathology: other (gram stain, aerobic and anaerobic cultures) Condition: stable Disposition: no change
--- NOTE | 2016-08-31 14:57 | Internal Med Progress Note ---
Date of Encounter: 08/31/16 Time of Encounter: 10:40 - Assessment and plan (1) Sepsis Current Visit: Yes Status: Acute Assessment and plan: Patient presented with fever, tachycardia, leukocytosis with left gluteal cellulitis and possible abscess. Sepsis is currently improving except leukocytosis with bandemia. Continue broad-spectrum IV antibiotics, plan as below. Qualifiers: Sepsis type: sepsis due to unspecified organism Qualified Code(s): A41.9 - Sepsis, unspecified organism (2) Abscess, gluteal, left Current Visit: Yes Status: Acute Assessment and plan: CT abdomen/pelvis done at the time of admission showed no evidence of gluteal abscess. However, patient is noted to have worsening bandemia/persistent leukocytosis/clinical evidence of localized left gluteal swelling. Continue IV vancomycin and Zosyn. Follow-up blood cultures. Surgery consult for possible incision and drainage with wound cultures. Supportive care and pain control. Physical therapy evaluation recommends placement in extended care facility. human resources services specialist consult. (3) Essential hypertension Current Visit: Yes Status: Chronic (4) Hyperlipidemia Current Visit: Yes Status: Chronic Qualifiers: Hyperlipidemia type: unspecified Qualified Code(s): E78.5 - Hyperlipidemia , unspecified - Subjective Interval history: Reports feeling well. Denies gluteal pain, urinary complaints, fever or chills. Discussed about rehabilitation placement, currently declines. - Constitutional Vitals: Temp Pulse Resp BP Pulse Ox 98.4 F 86 17 165/67 98 08/31/16 10:27 08/31/16 10:27 08/31/16 10:27 08/31/16 10:27 08/31/16 10:27 General appearance: Present: A&O X 3, answers questions appropriately - Respiratory Respiratory exam: Present: CTAB. Absent: accessory muscle use, rales, rhonchi, wheezes - Cardiovascular Cardiovascular exam: Present: RRR, +S1, +S2. Absent: diastolic murmur, gallop, rubs, systolic murmur - GI/Abdominal GI/Abdominal exam: Present: normal bowel sounds, soft, no peritoneal signs. Absent: distended, tenderness - Back Exam Additional comments: Left gluteal cellulitis with erythema, induration along with the localized area of fluctuance with purulent discharge; Internal Medicine: Result - Labs CBC & Chem 7: 08/31/16 05:42 08/31/16 05:42 Labs: Short CBC 08/31/16 Range/Units 05:42 WBC 17.8 H (4.3-11.1) K/mcL Hgb 8.5 L (11.5-15.4) g/dL Hct 25.0 L (35.3-44.9) % Plt Count 196 (140-400) K/mcL Neutrophils # 16.4 H (1.6-8.9) K/mcL BMP 08/31/16 05:42 Sodium 127 L Potassium 3.4 L Chloride 100 Carbon Dioxide 21 BUN 9 Creatinine 0.80 Glucose 101 H Calcium 7.7 L Liver Function 08/31/16 Range/Units 05:42 Total Bilirubin 0.8 (0.2-1.2) mg/dL AST 9 (5-34) Units/L ALT < 6 (0-55) Units/L Alkaline Phosphatase 69 (38-126) Units/L Albumin 1.9 L (3.5-5.0) g/dL - ABG Interpretation ABG results: PT/INR, D-dimer PT 15.7 Seconds (9.4-12.1) H 08/30/16 04:05 Consult Discharge Plan - Plan Referrals: Estuardo Wong DO [Primary Care Provider] - 09/13/16 1:30 pm
[2016-09-01 05:08] LABS: Albumin/Globulin Ratio 0.6 (1.1-2.2); Alkaline Phosphatase 63 Units/L (38-126); Aspartate Amino Transferase 7 Units/L (5-34); BUN/Creatinine Ratio 9 (6-26); Bilirubin,Total 0.5 mg/dL (0.2-1.2); Blood Urea Nitrogen 7 mg/dL (7-20); Calcium 7.6 mg/dL (8.6-10.8); Carbon Dioxide 19 mEq/L (19-29); Chloride 106 mEq/L (98-109); Globulin 2.9 g/dL (2.4-3.5); Glucose 87 mg/dL (70-99); Osmolality,Calculated 265 (280-300); Potassium 3.5 mEq/L (3.5-4.5); Sodium 129 mEq/L (136-145); Total Protein 4.7 g/dL (6.0-8.3); eGFR For African Americans > 60 (> 60); eGFR For Non-African Americans > 60 (> 60)
[2016-09-01 05:09] LABS: Alanine Aminotransferase < 6 Units/L (0-55); Albumin 1.8 g/dL (3.5-5.0)
[2016-09-01 05:12] LABS: Hematocrit 24.7 % (35.3-44.9); Hemoglobin 8.1 g/dL (11.5-15.4); Lymphocytes # 0.5 K/mcL (0.6-4.6); Mean Corpuscular HGB Conc 32.8 g/dL (31.6-35.5); Mean Corpuscular Hemoglobin 26.7 pg (28.0-33.3); Mean Corpuscular Volume 81.5 fL (83.0-100.0); Mean Platelet Volume 9.5 fL (9.4-12.4); Platelet Count 212 K/mcL (140-400); Red Blood Count 3.03 M/mcL (3.82-4.97); Red Cell Distribution Width 14.4 % (11.5-14.5)
[2016-09-01] MEDS: *HR* Heparin 5,000 UNIT/ML VIAL SQ SCH ×2 (06:25→18:08)
[2016-09-01 07:14] LABS: Monocytes # 0.5 K/mcL (0.0-1.3); Neutrophils # 11.9 K/mcL (1.6-8.9); Platelet Estimate Normal (Normal); Toxic Granulation Present (Not Present)
[2016-09-01] MEDS: Aspirin 81 MG TAB.CHEW PO SCH (08:56)
[2016-09-01] MEDS: 0.9 % Sodium Chloride 1,000 ML IVC SCH ×2 (08:58→11:28)
[2016-09-01] MEDS: Vancomycin 750 MG in D5% in Water 250 ML IVPB SCH ×2 (10:57→20:56)
[2016-09-01] MEDS: Piperacillin/Tazobactam 3.375 GM in D5% in Water (Mini-Bag+) 100 ML IVPB SCH ×2 (11:35→20:52)
--- NOTE | 2016-09-01 12:57 | Internal Med Progress Note ---
Date of Encounter: 09/01/16 Time of Encounter: 11:30 - Assessment and plan (1) Sepsis Current Visit: Yes Status: Acute Assessment and plan: Patient presented with fever, tachycardia, leukocytosis with left gluteal cellulitis and abscess. Sepsis currently resolved. Leukocytosis significantly improved with drainage of gluteal abscess, continues to have bandemia. Continue broad-spectrum IV antibiotics, plan as below. Qualifiers: Sepsis type: sepsis due to unspecified organism Qualified Code(s): A41.9 - Sepsis, unspecified organism (2) Abscess, gluteal, left Current Visit: Yes Status: Acute Assessment and plan: Surgery consult appreciated, status post incision and drainage of left gluteal abscess. Local wound care with packing per surgery recommendations. Blood cultures so far negative. Follow up final wound cultures. Continue IV vancomycin and Zosyn for now. Supportive care and pain control. Physical therapy evaluation recommends placement in extended care facility. social worker health services working on the same, although patient continues to decline being placed. (3) Essential hypertension Current Visit: Yes Status: Chronic Assessment and plan: Blood pressure noted to be elevated, we will restart home dose of lisinopril and continue to monitor. (4) Hyperlipidemia Current Visit: Yes Status: Chronic Qualifiers: Hyperlipidemia type: unspecified Qualified Code(s): E78.5 - Hyperlipidemia , unspecified (5) Hyponatremia Current Visit: Yes Status: Acute Assessment and plan: Noted to be improving, 129 today. Continue IV hydration. - Subjective Interval history: Noted to be sitting up in chair. Denies new complaints. Underwent incision and drainage of left buttock abscess yesterday but denies pain. No fever, chills. Continues to ask when she can go home. - Constitutional Vitals: Temp Pulse Resp BP Pulse Ox 97.5 F L 78 16 164/69 99 09/01/16 10:47 09/01/16 10:47 09/01/16 10:47 09/01/16 10:47 09/01/16 10:47 General appearance: Present: A&O X 3, answers questions appropriately - Respiratory Respiratory exam: Present: CTAB. Absent: accessory muscle use, rales, rhonchi, wheezes - Cardiovascular Cardiovascular exam: Present: RRR, +S1, +S2. Absent: diastolic murmur, gallop, rubs, systolic murmur - GI/Abdominal GI/Abdominal exam: Present: normal bowel sounds, soft, no peritoneal signs. Absent: distended, tenderness Internal Medicine: Result - Labs CBC & Chem 7: 09/01/16 04:40 09/01/16 04:40 Labs: Short CBC 09/01/16 Range/Units 04:40 WBC 12.9 H (4.3-11.1) K/mcL Hgb 8.1 L (11.5-15.4) g/dL Hct 24.7 L (35.3-44.9) % Plt Count 212 (140-400) K/mcL Neutrophils # 11.9 H (1.6-8.9) K/mcL BMP 09/01/16 04:40 Sodium 129 L Potassium 3.5 Chloride 106 Carbon Dioxide 19 BUN 7 Creatinine 0.75 Glucose 87 Calcium 7.6 L Liver Function 09/01/16 Range/Units 04:40 Total Bilirubin 0.5 (0.2-1.2) mg/dL AST 7 (5-34) Units/L ALT < 6 (0-55) Units/L Alkaline Phosphatase 63 (38-126) Units/L Albumin 1.8 L (3.5-5.0) g/dL - ABG Interpretation ABG results: PT/INR, D-dimer PT 15.7 Seconds (9.4-12.1) H 08/30/16 04:05 Consult Discharge Plan - Plan Referrals: Estuardo Wong DO [Primary Care Provider] - 09/13/16 1:30 pm
--- NOTE | 2016-09-01 15:19 | General Surgery Progress Note ---
Date of Encounter: 09/01/16 Time of Encounter: 15:17 - Assessment and Plan (1) Abscess, gluteal, left Current Visit: Yes Status: Acute I&D of abscess complete Wound cultures- gram positive cocci- presumptive MRSA Wound care daily- will transfer to [facility] at discharge Supportive care/pain control IV antibiotics- Zosyn and Vancomycin (await culture results) Will continue to follow and assess progress Subjective Patient reports: no new complaints, tolerating a regular diet, voiding w/o difficulty, bowel movement, diarrhea, afebrile Objective Vital Signs - Last 8 Hours Temp Pulse Resp BP Pulse Ox 09/01/16 10:47 97.5 F L 78 16 164/69 99 Intake and Output 08/31/16 09/01/16 09/01/16 23:59 07:59 15:59 Intake Total 1040 / 1040 100 / 100 1832 / 1832 Output Total 200 / 200 1500 / 1500 0 / 0 Balance 840 / 840 -1400 / -1400 183 / 1832 Intake: IV Fluids 800 / 800 100 / 100 1152 / 1152 0.9 % Sodium Chloride 1, 800 / 800 1152 / 1152 000 ML @ 75 mls/hr IVC . [id number] [facility] Rx#: [id number] Zosyn 3.375 GM In 100 / 100 Dextrose 5% (Minibag+) 100 ML 100 ML @ 25 mls/hr IVPB Q12H [facility] Rx#: [id number] Oral 240 / 240 0 / 0 680 / 680 Output: Urine 0 / 0 1500 / 1500 0 / 0 Urine/Stool Mix 200 / 200 Other: Meal water pitcher Percent of Meal Consumed 75% Stool Size Small Small Moderate Stool Consistency loose soft loose Stool Color Brown Brown Brown # Urine Diapers 1 # Bowel Movements 1 Weight 45.3 kg Patient Weight 09/01/16 23:59 Weight 45.3 kg - General physical appearance well developed, well nourished, no distress, other (pleasantly confused) - Eyes normal ocular movement - ENT normal mucosa, atraumatic, normocephalic - Neck Neck exam: trachea midline - Respiratory normal respiratory effort - Abdomen Abdomen: Present: soft, non tender - Incision Incision: Present: draining, erythema (improved), purulent (small amount), indurated (improved), open - Neurologic CN 2-12 grossly intact - Psychiatric oriented to person, speech is normal - Labs 09/01/16 04:40 09/01/16 04:40 Diabetes panel 09/01/16 Range/Units 04:40 Sodium 129 L (136-145) mEq/L Potassium 3.5 (3.5-4.5) mEq/L Chloride 106 (98-109) mEq/L Carbon Dioxide 19 (19-29) mEq/L BUN 7 (7-20) mg/dL Creatinine 0.75 (0.57-1.11) mg/dL Glucose 87 (70-99) mg/dL Calcium 7.6 L (8.6-10.8) mg/dL AST 7 (5-34) Units/L ALT < 6 (0-55) Units/L Alkaline Phosphatase 63 (38-126) Units/L Albumin 1.8 L (3.5-5.0) g/dL Calcium panel 09/01/16 Range/Units 04:40 Calcium 7.6 L (8.6-10.8) mg/dL Albumin 1.8 L (3.5-5.0) g/dL Pituitary panel 09/01/16 Range/Units 04:40 Sodium 129 L (136-145) mEq/L Potassium 3.5 (3.5-4.5) mEq/L Chloride 106 (98-109) mEq/L Carbon Dioxide 19 (19-29) mEq/L BUN 7 (7-20) mg/dL Creatinine 0.75 (0.57-1.11) mg/dL Glucose 87 (70-99) mg/dL Calcium 7.6 L (8.6-10.8) mg/dL Adrenal panel 09/01/16 Range/Units 04:40 Sodium 129 L (136-145) mEq/L Potassium 3.5 (3.5-4.5) mEq/L Chloride 106 (98-109) mEq/L Carbon Dioxide 19 (19-29) mEq/L BUN 7 (7-20) mg/dL Creatinine 0.75 (0.57-1.11) mg/dL Glucose 87 (70-99) mg/dL Calcium 7.6 L (8.6-10.8) mg/dL Total Bilirubin 0.5 (0.2-1.2) mg/dL AST 7 (5-34) Units/L ALT < 6 (0-55) Units/L Alkaline Phosphatase 63 (38-126) Units/L Albumin 1.8 L (3.5-5.0) g/dL Consult Discharge Plan - Plan Referrals: Estuardo Wong DO [Primary Care Provider] - 09/13/16 1:30 pm
[2016-09-02] MEDS: 0.9 % Sodium Chloride 1,000 ML IVC SCH (03:57)
[2016-09-02] MEDS: Piperacillin/Tazobactam 3.375 GM in D5% in Water (Mini-Bag+) 100 ML IVPB SCH (03:58)
[2016-09-02 04:13] LABS: Basophils % 0.3 %; Eosinophils # 0.2 K/mcL (0.0-0.6); Eosinophils % 2.5 %; Hemoglobin 9.5 g/dL (11.5-15.4); Immature Granulocytes % 0.8 % (0-4); Lymphocytes # 0.7 K/mcL (0.6-4.6); Mean Corpuscular HGB Conc 33.9 g/dL (31.6-35.5); Mean Corpuscular Hemoglobin 27.6 pg (28.0-33.3); Mean Corpuscular Volume 81.4 fL (83.0-100.0); Mean Platelet Volume 9.5 fL (9.4-12.4); Monocytes # 0.6 K/mcL (0.0-1.3); Monocytes % 6.7 %; Neutrophils # 7.9 K/mcL (1.6-8.9); Platelet Count 262 K/mcL (140-400); Red Blood Count 3.44 M/mcL (3.82-4.97); Red Cell Distribution Width 14.4 % (11.5-14.5); Segmented Neutrophils % 82.7 %
[2016-09-02 04:28] LABS: Albumin/Globulin Ratio 0.7 (1.1-2.2); Alkaline Phosphatase 80 Units/L (38-126); Aspartate Amino Transferase 11 Units/L (5-34); BUN/Creatinine Ratio 7 (6-26); Bilirubin,Total 0.4 mg/dL (0.2-1.2); Carbon Dioxide 19 mEq/L (19-29); Chloride 103 mEq/L (98-109); Globulin 3.5 g/dL (2.4-3.5); Glucose 92 mg/dL (70-99); Osmolality,Calculated 263 (280-300); Potassium 3.4 mEq/L (3.5-4.5); Sodium 128 mEq/L (136-145); eGFR For African Americans > 60 (> 60); eGFR For Non-African Americans > 60 (> 60)
[2016-09-02 04:30] LABS: Alanine Aminotransferase < 6 Units/L (0-55); Albumin 2.3 g/dL (3.5-5.0); Blood Urea Nitrogen 5 mg/dL (7-20); Total Protein 5.8 g/dL (6.0-8.3)
[2016-09-02] MEDS: *HR* Heparin 5,000 UNIT/ML VIAL SQ SCH ×2 (05:55→18:10)
[2016-09-02] MEDS ORDERED: Aminoglycoside Consult 1 EACH MC ONE (08:06)
[2016-09-02] MEDS: Aspirin 81 MG TAB.CHEW PO SCH (08:24)
[2016-09-02] MEDS: Vancomycin 750 MG in D5% in Water 250 ML IVPB SCH (08:25)
[2016-09-02] MEDS ORDERED: Potassium Chloride Elixir 20 MEQ/15 ML UDC PO ONE (09:45)
[2016-09-02] MEDS: Doxycycline 100 MG in 0.9 % Sodium Chloride Mini Bag 100 ML IVPB SCH ×2 (10:43→18:11)
--- NOTE | 2016-09-02 15:12 | Discharge Summary ---
Date of Encounter: 09/02/16 Time of Encounter: 12:00 - Discharge Diagnosis (1) Sepsis Priority: Primary Status: Acute Qualifiers: Sepsis type: methicillin resistant Staphylococcus aureus Qualified Code(s) : A41.02 - Sepsis due to Methicillin resistant Staphylococcus aureus (2) Abscess, gluteal, left Priority: Primary Status: Acute (3) Essential hypertension Priority: Secondary Status: Chronic (4) Hyperlipidemia Priority: Secondary Status: Chronic Qualifiers: Hyperlipidemia type: unspecified Qualified Code(s): E78.5 - Hyperlipidemia , unspecified (5) Hyponatremia Priority: Primary Status: Acute - Discharge Medications Prescriptions: Doxycycline 100 mg PO BID #14 capsule Home Medications: Aspirin 81 mg PO DAILY 08/30/16 [History] Ferrous Sulfate [Iron] 325 mg PO DAILY 08/30/16 [History] Lisinopril [Zestril] 5 mg PO DAILY 08/30/16 [History] Magnesium Oxide [Mgo] 400 mg PO DAILY 08/30/16 [History] Omeprazole [PriLOSEC] 20 mg PO DAILY 08/30/16 [History] Doxycycline 100 mg PO BID #14 capsule 09/02/16 [Rx] Allergies/Adverse Reactions: Allergies No Known Allergies Allergy (Verified 01/12/16 16:43) Date of admission: 08/29/16 22:33 Primary care physician: Nadine Zhang Consults: 08/30/16 13:25 Consult to Occupational Therapy [CONS] Routine Comment: Evaluate, develop and implement POC Reason for Consult: eval for ecf 08/31/16 10:41 Consult to Surgery [CONS] Stat Consulting Provider: [facility] Reason for Consult: Wound on buttocks. Call Completed: No Discharging clinician: Karen Webb Anticipated date of discharge: 09/02/16 - Patient Status Disposition: Transfer SNF Condition: Good Functional capacity at discharge: uses cane/walker Overall status at discharge: patient is progressing back to baseline - Discharge Instructions Follow Up With: Estuardo Wong DO [Primary Care Provider] - - Diet and Activity Activity: as per physical therapy Diet: low fat, low cholesterol, low salt diet Hospital course: Ms. Littlejohn is a 89 year old female who was initially admitted with generalized weakness and recurrent falls at home. She was not noted to have a cute trauma or fractures. She did have sepsis due to left gluteal cellulitis and abscess. Initial CT abdomen/pelvis done at the time of admission showed no evidence of abscess, however patient developed a localized fluctuant abscess later. She was started on IV hydration along with broad-spectrum IV antibiotics-vancomycin and Zosyn. Surgery was consulted and patient underwent bedside incision and drainage along with local wound care with packing. She did not report significant pain during her hospitalization. Blood cultures remain negative. Wound culture grows MRSA and her antibiotics are currently switched to IV doxycycline. Patient was also noted to have hyponatremia, which improved with IV hydration and fluids are discontinued at this time. She is hemodynamically stable and likely has mild cognitive dysfunction related to dementia. Physical therapy evaluation was completed and patient would benefit from transfer to extended care facility due to underlying dementia, living alone, inability to take care of self and generalized weakness. Patient is resistant to placement however was convinced by her family and is currently agreeable for this transfer. - Time Spent with Patient Total time spent providing and/or coordinating discharge services: Greater than 30 minutes (40 min) - Constitutional Vitals: Temp Pulse Resp BP Pulse Ox 98.3 F 81 17 159/79 99 09/02/16 12:12 09/02/16 12:12 09/02/16 12:12 09/02/16 12:12 09/02/16 12:12 General appearance: Present: A&O X 2, answers questions appropriately (poor insight, mild cognitive dysfunction) - Cardiovascular Cardiovascular exam: Present: RRR, +S1, +S2. Absent: diastolic murmur, gallop, rubs, systolic murmur
--- NOTE | 2016-09-02 15:14 | Physician Discharge Referral ---
ExtendedCare Referral Info Transfer To: [facility] Provider in Charge: Karen Webb Provider in Charge after Transfer: PCP Institutional Level of Care: Skilled - Diagnosis (1) Sepsis Priority: Primary Status: Acute (2) Abscess, gluteal, left Priority: Primary Status: Acute (3) Essential hypertension Priority: Secondary Status: Chronic (4) Hyperlipidemia Priority: Secondary Status: Chronic (5) Hyponatremia Priority: Primary Status: Acute Expected Duration of Placement: 3 weeks Prognosis: Fair Aware of Diagnosis: Patient, Family Aware of Prognosis: Family - Transfer Medications Prescriptions: Doxycycline 100 mg PO BID #14 capsule Home Medications: Aspirin 81 mg PO DAILY 08/30/16 [History] Ferrous Sulfate [Iron] 325 mg PO DAILY 08/30/16 [History] Lisinopril [Zestril] 5 mg PO DAILY 08/30/16 [History] Magnesium Oxide [Mgo] 400 mg PO DAILY 08/30/16 [History] Omeprazole [PriLOSEC] 20 mg PO DAILY 08/30/16 [History] Doxycycline 100 mg PO BID #14 capsule 09/02/16 [Rx] Allergies/Adverse Reactions: Allergies No Known Allergies Allergy (Verified 01/12/16 16:43) - Respiratory Orders Smoking Cessation: Smoking cessation has been advised. For more information, call the [employer] Tobacco Quit Line at 1-307-OOLRNOW. - Advance Directives Code Status: DNR-Arrest/Don't Intubate - Mobility Orders Ambulate - Rehabiliation Orders Rehab Potential: Fair Rehab Orders: ROM Exercises, Evaluation for Physical Therapy, Evaluation for Occupational Therapy - Diet Orders Cardiac CERTIFICATION: I certify that the transfer of the above named patient to an Extended Care Facility is necessary for the continuing treatment of the diagnosis listed. The above information is true and accurate reflection of patient's current condition. Confidential - Redisclosure prohibited without a patient's written consent.
[2016-09-03 04:31] VITALS: BP 161/93
[2016-09-03] MEDS: *HR* Heparin 5,000 UNIT/ML VIAL SQ SCH (05:35)
[2016-09-03] MEDS: Doxycycline 100 MG in 0.9 % Sodium Chloride Mini Bag 100 ML IVPB SCH (05:35)
[2016-09-03 05:48] LABS: Basophils % 0.6 %; Eosinophils # 0.4 K/mcL (0.0-0.6); Eosinophils % 5.7 %; Hematocrit 24.8 % (35.3-44.9); Hemoglobin 8.3 g/dL (11.5-15.4); Lymphocytes % 15.2 %; Mean Corpuscular HGB Conc 33.5 g/dL (31.6-35.5); Mean Corpuscular Hemoglobin 27.4 pg (28.0-33.3); Mean Corpuscular Volume 81.8 fL (83.0-100.0); Mean Platelet Volume 9.5 fL (9.4-12.4); Monocytes # 0.7 K/mcL (0.0-1.3); Platelet Count 241 K/mcL (140-400); Red Blood Count 3.03 M/mcL (3.82-4.97); Red Cell Distribution Width 14.6 % (11.5-14.5); Segmented Neutrophils % 64.5 %
[2016-09-03 06:43] LABS: Albumin/Globulin Ratio 0.7 (1.1-2.2); Alkaline Phosphatase 63 Units/L (38-126); Aspartate Amino Transferase 10 Units/L (5-34); BUN/Creatinine Ratio 4 (6-26); Bilirubin,Total 0.4 mg/dL (0.2-1.2); Calcium 7.9 mg/dL (8.6-10.8); Carbon Dioxide 17 mEq/L (19-29); Chloride 110 mEq/L (98-109); Globulin 2.9 g/dL (2.4-3.5); Glucose 84 mg/dL (70-99); Osmolality,Calculated 272 (280-300); Potassium 3.6 mEq/L (3.5-4.5); Sodium 133 mEq/L (136-145); Total Protein 4.9 g/dL (6.0-8.3); eGFR For African Americans > 60 (> 60); eGFR For Non-African Americans > 60 (> 60)
[2016-09-03 06:47] LABS: Alanine Aminotransferase < 6 Units/L (0-55); Blood Urea Nitrogen 3 mg/dL (7-20)
[2016-09-03] MEDS: Aspirin 81 MG TAB.CHEW PO SCH (08:28)
--- NOTE | 2016-09-03 12:38 | Internal Med Progress Note ---
Date of Encounter: 09/03/16 Time of Encounter: 09:30 - Assessment and plan (1) Sepsis Status: Acute Qualifiers: Sepsis type: methicillin resistant Staphylococcus aureus Qualified Code(s) : A41.02 - Sepsis due to Methicillin resistant Staphylococcus aureus (2) Abscess, gluteal, left Status: Acute Assessment and plan: Surgery consult appreciated, status post incision and drainage of left gluteal abscess. Local wound care with packing per surgery recommendations. Blood cultures so far negative. Wound culture grows MRSA, continue IV Doxycycline. Supportive care and pain control. Patient is medically stable, pending discharge back to SNF, after d/w family; social services designee on board; (3) Essential hypertension Status: Chronic (4) Hyperlipidemia Status: Chronic Qualifiers: Hyperlipidemia type: unspecified Qualified Code(s): E78.5 - Hyperlipidemia , unspecified (5) Hyponatremia Status: Acute - Subjective Interval history: Reports feeling well; not able to provide detailed history due to dementia; awaiting rehab placement; - Constitutional Vitals: Temp Pulse Resp BP Pulse Ox 97.8 F 83 16 161/93 97 09/03/16 04:26 09/03/16 04:26 09/03/16 04:26 09/03/16 04:26 09/03/16 04:26 General appearance: Present: A&O X 2, answers questions appropriately (poor insight, mild cognitive dysfunction) - Respiratory Respiratory exam: Present: CTAB. Absent: accessory muscle use, rales, rhonchi, wheezes - Cardiovascular Cardiovascular exam: Present: RRR, +S1, +S2. Absent: diastolic murmur, gallop, rubs, systolic murmur Internal Medicine: Result - Labs CBC & Chem 7: 09/03/16 04:54 09/03/16 04:54 Labs: Short CBC 09/03/16 Range/Units 04:54 WBC 6.3 (4.3-11.1) K/mcL Hgb 8.3 L (11.5-15.4) g/dL Hct 24.8 L (35.3-44.9) % Plt Count 241 (140-400) K/mcL Neutrophils # 4.0 (1.6-8.9) K/mcL BMP 09/03/16 04:54 Sodium 133 L Potassium 3.6 Chloride 110 H Carbon Dioxide 17 L BUN 3 L Creatinine 0.70 Glucose 84 Calcium 7.9 L Liver Function 09/03/16 Range/Units 04:54 Total Bilirubin 0.4 (0.2-1.2) mg/dL AST 10 (5-34) Units/L ALT < 6 (0-55) Units/L Alkaline Phosphatase 63 (38-126) Units/L Albumin 2.0 L (3.5-5.0) g/dL - ABG Interpretation ABG results: PT/INR, D-dimer PT 15.7 Seconds (9.4-12.1) H 08/30/16 04:05 Consult Discharge Plan - Plan Referrals: Estuardo Wong DO [Primary Care Provider] - Prescriptions: Doxycycline 100 mg PO BID #14 capsule
== END 2016-09-03 10:26 ==
LOC: EMEROO 14:31 → 3ANU 14:31 → SUATTDRO 22:33
PROVIDERS: ADMIT Internal Medicine; ATTEND Internal Medicine

== ENCOUNTER 2016-09-11 13:24 | Observation (INO) ==
--- NOTE | 2016-09-11 13:31 | Emergency Department Note ---
Disposition Clinical Impression: Transient cerebral ischemia Qualifiers: Transient cerebral ischemia type: unspecified Qualified Code(s): G45.9 - Transient cerebral ischemic attack, unspecified Disposition: Admitted As Inpatient Condition: Fair Referrals: Estuardo Wong DO [Primary Care Provider] - Forms: ED Satisfaction Letter Time of Disposition: 15:19 Neuro HPI - General Chief Complaint: ED Neuro Symptoms/Deficit Stated Complaint: Neuro Symptoms Time Seen by Provider: 09/11/16 13:28 Source: patient, EMS Mode of arrival: EMS Nursing Notes Reviewed: Yes Vital Signs Reviewed: Yes - History of Present Illness HPI Narrative: 89-year-old apparently was normal at 12:15 PM today and was found to have right sided weakness in the right arm and right leg. Patient also had slurred speech and right facial weakness. Patient sent in for evaluation. Patient is a DNR CC arrest. Onset of Symptoms Date: 09/11/16 Onset of Symptoms Time: 12:15 Timing confirmed by: caregiver Location: speech, right face, right arm, right leg Severity: moderate, now resolved Quality: weakness, numbness Symptoms Improving: Yes Context: sudden onset Associated symptoms: Reports: denies other symptoms - Related Data Home Medications: Home Medications Medication Instructions Recorded Confirmed Aspirin 81 mg PO DAILY 08/30/16 08/30/16 Ferrous Sulfate [Iron] 325 mg PO DAILY 08/30/16 08/30/16 Lisinopril [Zestril] 5 mg PO DAILY 08/30/16 08/30/16 Magnesium Oxide [Mgo] 400 mg PO DAILY 08/30/16 08/30/16 Omeprazole [PriLOSEC] 20 mg PO DAILY 08/30/16 08/30/16 Previous Rx's Medication Instructions Recorded Doxycycline 100 mg PO BID #14 capsule 09/02/16 Allergies/Adverse Reactions: Allergies Allergy/AdvReac Type Severity Reaction Status Date / Time No Known Allergies Allergy Verified 01/12/16 16:43 All systems ED: reviewed and negative except as stated. Constitutional: Denies: fever, chills, weakness, weight change Eyes: Denies: eye pain, eye discharge, vision change ENT ED: Denies: ear pain, throat pain, dental pain, hearing loss, epistaxis, congestion, dysphagia Cardiovascular: Denies: chest pain, palpitations, dyspnea on exertion, edema, syncope Respiratory: Denies: cough, dyspnea, wheezes, hemoptysis, stridor Gastrointestinal: Denies: abdominal pain, nausea, vomiting, diarrhea, constipation, hematemesis, melena, hematochezia Genitourinary: Denies: dysuria, frequency, hematuria, discharge Musculoskeletal: Denies: back pain, neck pain, arthralgia, myalgia Integumentary: Denies: rash, abrasion, lesions Neurological: Reports: weakness, numbness, other (Slurred speech). 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 history - Social History Smoking Status: Never smoker Smokeless Tobacco Status: No Alcohol use: Reports: none Drug use: Reports: none Physical Exam - General Limitations: no limitations General appearance: alert, in no apparent distress - Head Head exam: atraumatic, normocephalic, normal inspection - Eye Eye exam: Present: normal appearance, PERRL, EOMI - ENT ENT exam: normal exam, normal oropharynx, mucous membranes moist - Neck Neck exam: Present: normal inspection, full ROM, trachea midline - Chest Chest inspection: Present: normal inspection, symmetric chest wall rise - Respiratory Respiratory exam: Present: normal lung sounds bilaterally - Cardiovascular Cardiovascular exam: Present: regular rate, normal rhythm, normal heart sounds - Abdominal Exam Abdominal exam: Present: soft, Non-Tender. Absent: tenderness, distention, guarding, rebound, rigidity - Extremities Exam Extremities exam: Present: normal inspection, full ROM. Absent: tenderness, pedal edema - Expanded Lower Extremity Exam Neurovascular/Tendon exam: Absent: motor deficit, sensory deficit, tendon deficit Gait: observed and normal - Back Exam Back exam: Present: normal inspection, full ROM. Absent: tenderness - Neurological Exam Neurological exam: Present: alert, oriented X3 - Psychiatric Psychiatric exam: Present: normal affect, normal mood - Skin Skin exam: Present: warm, dry, intact, normal color Course - Reevaluation(s) Reevaluation #1: 89-year-old who comes in with last known well being 12:15 had acute onset right- sided weakness of the right arm and right leg with slurred speech. This was new for her and was [facility]. By the time she got here her symptoms seem to have improved and on NIH exam here she was 0. I consult neurology will bring the patient him TIA Time: 15:24 - Consultations Consultation #1: Discussed with Dr. Orta neurology, admit to hospitalist. Time: 15:18 Consultation #2: Discussed with Dr. Roth admit. Time: 15:24 Vital Signs Temperature 98.5 F 09/11/16 13:29 Pulse Rate 97 09/11/16 13:29 Respiratory Rate 16 09/11/16 13:29 Blood Pressure 162/84 09/11/16 13:29 O2 Sat by Pulse Oximetry 99 09/11/16 13:29 Temperature 98.5 F 09/11/16 13:29 Pulse Rate 76 09/11/16 15:14 Respiratory Rate 16 09/11/16 15:14 Blood Pressure 155/76 09/11/16 15:14 O2 Sat by Pulse Oximetry 92 09/11/16 15:14 Oxygen Delivery Oxygen Delivery Room Air Neuro Symptoms/Deficit - Lab Data Lab results reviewed: Yes I reviewed the patient's lab results. Result diagrams: 09/11/16 14:18 09/11/16 14:18 Lab Results 09/11/16 09/11/16 09/11/16 Range/Units 14:18 14:18 14:18 WBC 9.6 (4.3-11.1) K/mcL RBC 3.69 L (3.82-4.97) M/mcL Hgb 10.0 L (11.5-15.4) g/dL Hct 31.0 L (35.3-44.9) % MCV 84.0 (83.0-100.0) fL MCH 27.1 L (28.0-33.3) pg MCHC 32.3 (31.6-35.5) g/dL RDW 15.6 H (11.5-14.5) % Plt Count 432 H (140-400) K/mcL MPV 8.4 L (9.4-12.4) fL Immature Gran % 0.9 (0-4) % Seg Neutrophils % 85.0 % Lymphocytes % 8.1 % Monocytes % 5.5 % Eosinophils % 0.2 % Basophils % 0.3 % Neutrophils # 8.1 (1.6-8.9) K/mcL Lymphocytes # 0.8 (0.6-4.6) K/mcL Monocytes # 0.5 (0.0-1.3) K/mcL Eosinophils # 0.0 (0.0-0.6) K/mcL Basophils # 0.0 (0.0-0.2) K/mcL PT 11.2 (9.4-12.1) Seconds INR 1.0 APTT 27.7 (26.0-36.0) Seconds Sodium 132 L (136-145) mEq/L Potassium 4.3 (3.5-4.5) mEq/L Chloride 100 (98-109) mEq/L Carbon Dioxide 25 (19-29) mEq/L BUN 17 (7-20) mg/dL Creatinine 0.80 (0.57-1.11) mg/dL Est GFR ( Amer) > 60 (> 60) Est GFR (Non-Af Amer) > 60 (> 60) BUN/Creatinine Ratio 21 (6-26) Glucose 102 H (70-99) mg/dL Calculated Osmolality 276 L (280-300) Calcium 8.8 (8.6-10.8) mg/dL Troponin I (0-0.03) ng/mL 09/11/16 Range/Units 14:18 WBC (4.3-11.1) K/mcL RBC (3.82-4.97) M/mcL Hgb (11.5-15.4) g/dL Hct (35.3-44.9) % MCV (83.0-100.0) fL MCH (28.0-33.3) pg MCHC (31.6-35.5) g/dL RDW (11.5-14.5) % Plt Count (140-400) K/mcL MPV (9.4-12.4) fL Immature Gran % (0-4) % Seg Neutrophils % % Lymphocytes % % Monocytes % % Eosinophils % % Basophils % % Neutrophils # (1.6-8.9) K/mcL Lymphocytes # (0.6-4.6) K/mcL Monocytes # (0.0-1.3) K/mcL Eosinophils # (0.0-0.6) K/mcL Basophils # (0.0-0.2) K/mcL PT (9.4-12.1) Seconds INR APTT (26.0-36.0) Seconds Sodium (136-145) mEq/L Potassium (3.5-4.5) mEq/L Chloride (98-109) mEq/L Carbon Dioxide (19-29) mEq/L BUN (7-20) mg/dL Creatinine (0.57-1.11) mg/dL Est GFR ( Amer) (> 60) Est GFR (Non-Af Amer) (> 60) BUN/Creatinine Ratio (6-26) Glucose (70-99) mg/dL Calculated Osmolality (280-300) Calcium (8.6-10.8) mg/dL Troponin I 0.00 (0-0.03) ng/mL - Radiology Data Radiology results reviewed: Yes I reviewed the patient's radiology results. Chest X-Ray 09/11/16 13:29 IMPRESSION: No acute abnormality detected. D/ / Jorge Alberto Bailey MD / Jorge Alberto Bailey MD Interpreting Provider: Jorge Alberto Bailey MD Head CT 09/11/16 13:31 IMPRESSION: No acute intracranial abnormality. Chronic microvascular ischemic changes and global cerebral atrophy. D/ / Kalin Corw MD / Kalin Crow MD Interpreting Provider: Kalin Crow MD - EKG Data EKG attestation: Yes I reviewed and interpreted this EKG. NIH Stroke Scale - Level of Consciousness LOC: Alert - LOC Questions LOC Questions: Answers both correctly - LOC Commands LOC Commands: Performs both correctly - Best Gaze Best Gaze: Normal - Visual Visual: No visual loss - Facial Palsy Facial Palsy: Normal - Motor Arms Motor Arm-Left: No drift for 10 seconds Motor Arm-Right: No drift for 10 seconds - Motor Legs Motor Leg-Left: No drift for 5 seconds Motor Leg-Right: No drift for 5 seconds - Limb Ataxia Limb Ataxia: Normal, No Ataxia - Sensory Sensory: Normal - Best Language Best Language: No aphasia - Dysarthria Dysarthria: Normal - Extinction and Inattention Extinction and Inattention: Normal - NIHSS Total Score NIHSS Total Score: 0 TPA Checklist - Eligibilty for IV tPA 1. LKW equal to or less than 4.5 hours be before treatment: Yes 2. Clinical diagnosis of ischemic stroke causing deficit: No - LKW: 3-4.5 hrs Add. Warnings/Precautions Patient/family understanding: The patient/family members have been counseled and understood the risk, benefit , and alternatives of treatment.
[2016-09-11 14:26] LABS: Basophils % 0.3 %; Eosinophils % 0.2 %; Immature Granulocytes % 0.9 % (0-4); Lymphocytes # 0.8 K/mcL (0.6-4.6); Lymphocytes % 8.1 %; Mean Corpuscular HGB Conc 32.3 g/dL (31.6-35.5); Mean Corpuscular Hemoglobin 27.1 pg (28.0-33.3); Mean Platelet Volume 8.4 fL (9.4-12.4); Monocytes # 0.5 K/mcL (0.0-1.3); Monocytes % 5.5 %; Neutrophils # 8.1 K/mcL (1.6-8.9); Platelet Count 432 K/mcL (140-400); Red Blood Count 3.69 M/mcL (3.82-4.97); Red Cell Distribution Width 15.6 % (11.5-14.5)
[2016-09-11 14:33] LABS: Prothrombin Time 11.2 Seconds (9.4-12.1)
[2016-09-11 14:36] LABS: Activated Partial Thrombo Time 27.7 Seconds (26.0-36.0)
[2016-09-11 14:38] LABS: BUN/Creatinine Ratio 21 (6-26); Blood Urea Nitrogen 17 mg/dL (7-20); Calcium 8.8 mg/dL (8.6-10.8); Carbon Dioxide 25 mEq/L (19-29); Chloride 100 mEq/L (98-109); Glucose 102 mg/dL (70-99); Osmolality,Calculated 276 (280-300); Potassium 4.3 mEq/L (3.5-4.5); Sodium 132 mEq/L (136-145); eGFR For African Americans > 60 (> 60); eGFR For Non-African Americans > 60 (> 60)
[2016-09-11] MEDS ORDERED: Aspirin 81 MG TAB.CHEW PO STA (16:24)
--- NOTE | 2016-09-11 16:57 | Neurology - Consult Note ---
Date of Encounter: 09/11/16 Time of Encounter: 16:53 Assessment and Plan (1) Transient cerebral ischemia Current Visit: Yes Status: Acute This patient seems to have experienced an episode of transient ischemia involving the left cerebral hemisphere. At this point however her symptoms all seem to have resolved. Apparently she was taking aspirin 81 milligrams daily prior to this event. I will recommend simply boosting her up to 325 mg daily. I would also recommend carotid duplex Doppler study. I would not be in favor of Coumadin in this patient if she were to need anticoagulation. She strikes me as being fraile and would certainly be at risk for falls and bleeding. She will rapidly undergo deconditioning if she is bedridden for 2 long. Stroke orders should be implemented. Risk factor management is paramount. I will reevaluate her to request. Qualifiers: Transient cerebral ischemia type: unspecified Qualified Code(s): G45.9 - Transient cerebral ischemic attack, unspecified History of Present Illness HPI: Ms. Littlejohn is a 89 year old female who was seen for neurologic evaluation secondary to an episode of transient right upper and right lower extremity weakness. She was apparently hospitalized here about a week or so ago secondary to bedsores and increased weakness of the lower extremities. She was discharged from [facility] [place] [facility]. She was supposed to stable for bilateral branch and then be discharged back to her own residence. Apparently the traditions today she states that she developed difficulty talking and swallowing shortly after she can. She denied any numbness, tingling, but did experience transient weakness of the right upper and right lower extremities. The symptoms lasted for about 30 minutes or so. Since that time she has been back to her normal baseline. Her speech was not affected. She does have mild dementia at baseline. She denied any headache associated with this. Apparently she has had TIAs in the past she does have a history of hypertension. Her daughter was also present and helps to corroborate specific details. I did review the CT scan of the head which does reveal significant cortical atrophy as well as chronic ischemic deep white matter changes. Past Med Surg Social Fam HX - Past Medical History Medical history: GERD, hyperlipidemia, hypertension, TIA Psychiatric history: no psych history - Past Surgical History Surgical History: non-contributory - Social History Smoking Status: Never smoker Smokeless Tobacco Status: No Alcohol use: none Drug use: none Medications and Allergies Aspirin 81 mg PO DAILY 08/30/16 [History] Ferrous Sulfate [Iron] 325 mg PO DAILY 08/30/16 [History] Lisinopril [Zestril] 5 mg PO DAILY 08/30/16 [History] Allergies No Known Allergies Allergy (Verified 01/12/16 16:43) All Systems: A 10-system review of systems was performed and is negative for pertinent findings except as documented above in the HPI. Review of Systems: Review of systems is consistent with a history of present illness and is otherwise negative. Physical Examination - Vital Signs Vital Signs: Initial Vital Signs Temp Pulse Resp BP Pulse Ox 98.5 F 97 16 162/84 99 09/11/16 13:29 09/11/16 13:29 09/11/16 13:29 09/11/16 13:29 09/11/16 13:29 - Exam Exam: Neurologic examination was performed and finds the following: Cerebral functions-she does have motor impersistence, and does have some minor difficulties with central processing. These findings are consistent with baseline dementia. She is able to follow some simple commands but does need cueing at times. There is no aphasia identified. 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 She is able to recognize common objects. Cranial nerve exam-pupils are equal and reactive to light and accommodation. Extraocular motility is intact. Sensory to face is intact, mastication is intact. There is no facial asymmetry, speech is not dysarthric. Hearing is impaired. Tongue protrudes midline. Motor exam-she does have generalized cachexia, however I find no focal weakness. She moves the upper and lower extremities, at will. There are no involuntary movements identified. I did not ambulate her. Sensory exam finds light touch and deep touch are globally intact. Cerebellar exam-she performs [id number] and [id number] without ataxia. Deep tendon reflexes are diminished throughout. No Babinski sign or ankle clonus is present. Results - Laboratory Findings CBC and BMP: 09/11/16 14:18 09/11/16 14:18 Abnormal lab findings: Abnormal lab results RBC 3.69 M/mcL (3.82-4.97) L 09/11/16 14:18 Hgb 10.0 g/dL (11.5-15.4) L 09/11/16 14:18 Hct 31.0 % (35.3-44.9) L 09/11/16 14:18 MCH 27.1 pg (28.0-33.3) L 09/11/16 14:18 RDW 15.6 % (11.5-14.5) H 09/11/16 14:18 Plt Count 432 K/mcL (140-400) H 09/11/16 14:18 MPV 8.4 fL (9.4-12.4) L 09/11/16 14:18 Sodium 132 mEq/L (136-145) L 09/11/16 14:18 Glucose 102 mg/dL (70-99) H 09/11/16 14:18 Calculated Osmolality 276 (280-300) L 09/11/16 14:18 Consult Discharge Plan - Plan Referrals: Estuardo Wong DO [Primary Care Provider] -
[2016-09-11] MEDS ORDERED: Naloxone 0.4 MG/ML INJ IVP PRN (18:28)
[2016-09-11] MEDS ORDERED: *HR* Morphine 2 MG/ML SYRINGE IVP PRN (18:28)
[2016-09-11] MEDS ORDERED: Ondansetron 4 MG/2 ML VIAL IVP PRN (18:28)
--- NOTE | 2016-09-11 19:23 | Internal Med History&Physical ---
Date of Encounter: 09/11/16 Time of Encounter: 19:00 Assessment and Plan (1) Transient cerebral ischemia Current visit: Yes Status: Acute Transient ischemic attack - causing slurred speech and right-sided weakness and numbness Continue aspirin and statin EKG - sinus rhythm no acute ST-T changes CT head - no acute intraparenchymal abnormality Chest x-ray - no acute process Neurology consult - recommendations reviewed Physical therapy consult Qualifiers: Transient cerebral ischemia type: unspecified Qualified Code(s): G45.9 - Transient cerebral ischemic attack, unspecified (2) Essential hypertension Current visit: No Status: Chronic Essential hypertension, uncontrolled, continue home meds, monitor (3) Hyperlipidemia Current visit: No Status: Chronic Continue statin Qualifiers: Hyperlipidemia type: unspecified Qualified Code(s): E78.5 - Hyperlipidemia , unspecified (4) DVT prophylaxis Current visit: No Status: Acute Continue heparin subcutaneous Internal Medicine - H&P: HPI Chief complaint: Slurred speech and right-sided weakness Admitted From: Emergency Dept History of present illness: Ms. Littlejohn is a 89 year old female with past medical history of hypertension, hyperlipidemia, TIA, GERD and recent left gluteal abscess. Patient presents to the ED with complaints of slurred speech and right sided weakness. Patient was recently discharged from hospital to the [facility]. On examination patient is awake and alert. Not in any distress. Answers all questions appropriately. She has no obvious deficits. Her speech is normal. Patient states she was okay when she woke up this morning. By breakfast time she had transient slurred speech and right-sided weakness and numbness. Her family was there with her at the [facility] before this happened. Symptoms have resolved. Patient denies chest pain, denies shortness of breath, denies palpitations. Denies abdominal pain or vomiting or fever. No aggravating or alleviating factors. No associated symptoms. Initial evaluation in the ED is negative. CT of the head does not show any acute intracranial process and chest x-ray does not show any acute process. Within normal limits. Patient is being admitted for TIA. She will be continued on aspirin and statin. Neurology consult. Physical therapy consult. Patient has been explained about her condition and plan of care. She understood and agreed. No unanswered questions. No family members at bedside. CODE STATUS full code. As per previous records patient has been a DO NOT RESUSCITATE and DO NOT INTUBATE status. Past Med Surg Social Fam HX - Past Medical History Medical history: GERD, hyperlipidemia, hypertension, TIA Psychiatric history: no psych history - Past Surgical History Surgical History: non-contributory - Social History Smoking Status: Never smoker Smokeless Tobacco Status: No Alcohol use: none Drug use: none Internal Medicine - H&P: Meds Aspirin 81 mg PO DAILY 08/30/16 [History] Ferrous Sulfate [Iron] 325 mg PO DAILY 08/30/16 [History] Lisinopril [Zestril] 5 mg PO DAILY 08/30/16 [History] Allergies No Known Allergies Allergy (Verified 01/12/16 16:43) All Systems PM: A 10-system review of systems was performed and is negative for pertinent findings except as documented above in the HPI. - Constitutional Constitutional: weakness, no fatigue, no fever(s) - EENT Eyes: no blurry vision - Cardiovascular Cardiovascular ROS IM: no chest pain, no diaphoresis, no dyspnea, no dyspnea on exertion, no orthopnea, no syncope - Respiratory Respiratory: no cough, no dyspnea, no hemoptysis, no dyspnea on exertion, no chest congestion - Gastrointestinal Gastrointestinal: no abdominal pain, no belching, no diarrhea, no melena, no nausea, no vomiting - Genitourinary Genitourinary: no dysuria - Musculoskeletal Musculoskeletal ROS IM: other (Lower leg edema) - Neurological Neurological ROS: focal weakness, numbness, no abnormal gait, no abnormal speech , no dizziness, no memory loss - Constitutional Vitals: Temp Pulse Resp BP Pulse Ox 98.2 F 96 15 170/74 99 09/11/16 17:13 09/11/16 17:13 09/11/16 17:13 09/11/16 17:13 09/11/16 17:13 General appearance: Present: A&O X 3, pleasant, no acute distress, answers questions appropriately Exam: Frail, ill-appearing - Head Head exam: Present: atraumatic - Eye Eye exam: Present: EOMI - Neck Neck exam general surgery: Present: supple - Respiratory Respiratory exam: Present: CTAB. Absent: rales, rhonchi, wheezes - Cardiovascular Cardiovascular exam: Present: RRR, +S1, +S2 - GI/Abdominal GI/Abdominal exam: Present: soft, no peritoneal signs. Absent: distended, firm , guarding, rigid, tenderness - Extremities Exam Extremities exam: Present: pedal edema (Bilateral lower leg 3+ pitting, left lower leg dressing in place), radial pulses palpable and symetrical. Absent: cyanotic - Neurological Exam Neurological exam: Present: alert, CN II-XII intact, oriented X3, no focal deficits. Absent: pronater drift, facial droop, speech deficit Internal Med - H&P Results - Labs CBC & Chem 7: 09/11/16 14:18 09/11/16 14:18
[2016-09-12 03:06] LABS: Basophils % 0.5 %; Eosinophils # 0.1 K/mcL (0.0-0.6); Eosinophils % 1.7 %; Hematocrit 25.6 % (35.3-44.9); Hemoglobin 8.3 g/dL (11.5-15.4); Immature Platelets 1.1 % (1.1-6.1); Lymphocytes # 1.1 K/mcL (0.6-4.6); Lymphocytes % 18.3 %; Mean Corpuscular HGB Conc 32.4 g/dL (31.6-35.5); Mean Corpuscular Hemoglobin 27.2 pg (28.0-33.3); Mean Corpuscular Volume 83.9 fL (83.0-100.0); Mean Platelet Volume 8.6 fL (9.4-12.4); Monocytes # 0.6 K/mcL (0.0-1.3); Monocytes % 9.9 %; Platelet Count 415 K/mcL (140-400); Red Blood Count 3.05 M/mcL (3.82-4.97); Red Cell Distribution Width 15.5 % (11.5-14.5); Segmented Neutrophils % 68.6 %
[2016-09-12 03:32] LABS: BUN/Creatinine Ratio 27 (6-26); Blood Urea Nitrogen 22 mg/dL (7-20); Calcium 8.1 mg/dL (8.6-10.8); Carbon Dioxide 26 mEq/L (19-29); Chloride 103 mEq/L (98-109); Glucose 88 mg/dL (70-99); Osmolality,Calculated 279 (280-300); Potassium 3.8 mEq/L (3.5-4.5); Sodium 133 mEq/L (136-145); eGFR For African Americans > 60 (> 60); eGFR For Non-African Americans > 60 (> 60)
[2016-09-12] MEDS ORDERED: *HR* Heparin 5,000 UNIT/ML VIAL SQ SCH (06:00)
[2016-09-12] MEDS ORDERED: Famotidine 20 MG/2 ML VIAL IVP SCH (06:00)
[2016-09-12] MEDS ORDERED: Aspirin 325 MG TABLET PO SCH (09:00)
[2016-09-12] MEDS ORDERED: Aspirin 81 MG TAB.CHEW PO SCH (09:00)
[2016-09-12 12:04] VITALS: BP 110/75
--- NOTE | 2016-09-12 12:40 | Discharge Summary ---
Date of Encounter: 09/12/16 Time of Encounter: 09:00 - Discharge Diagnosis (1) Transient cerebral ischemia Priority: Primary Status: Acute Qualifiers: Transient cerebral ischemia type: other Qualified Code(s): G45.8 - Other transient cerebral ischemic attacks and related syndromes (2) Essential hypertension Priority: Secondary Status: Chronic (3) Hyperlipidemia Priority: Secondary Status: Chronic Qualifiers: Hyperlipidemia type: unspecified Qualified Code(s): E78.5 - Hyperlipidemia , unspecified - Discharge Medications Prescriptions: Aspirin Enteric Coated [Aspirin EC] 325 mg PO DAILY #30 tablet. Home Medications: Ferrous Sulfate [Iron] 325 mg PO DAILY 08/30/16 [History] Lisinopril [Zestril] 5 mg PO DAILY 08/30/16 [History] Aspirin Enteric Coated [Aspirin EC] 325 mg PO DAILY #30 tablet. 09/12/16 [Rx] Simvastatin [Zocor] 20 mg PO HS #0 tablet 09/12/16 [Rx] Allergies/Adverse Reactions: Allergies No Known Allergies Allergy (Verified 01/12/16 16:43) Procedures/tests Complete & Pending: Procedures Performed prior 72 hours Category Date Time Status EV carotid duplex imaging BI Stat Y 09/12/16 08:52 Ordered Date of admission: 09/11/16 16:32 Primary care physician: Nadine Zhang Consults: 09/11/16 17:40 Consult to Refinery Technician [CONS] Routine Reason for SW Consult: [facility] 09/11/16 18:29 Consult to Physical Therapy [CONS] Routine Comment: Evaluate, develop and implement POC Reason for Consult: pt eval Discharging clinician: Mia Rutherford Anticipated date of discharge: 09/12/16 - Patient Status Disposition: Transfer SNF Condition: Fair Functional capacity at discharge: uses cane/walker Overall status at discharge: patient is progressing back to baseline - Discharge Instructions Instructions: Aspirin (By mouth), Transient Ischemic Attack (DC), Transient Ischemic Attack (GEN), Cellulitis (DC), Sepsis (DC), Chronic Hypertension (DC), Transient Ischemic Attack, 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 Littlejohn is a 89 year old female patient with history of prior TIA, essential hypertension, hyperlipidemia, recent left gluteal abscess who resented to the ER with complaints of slurred speech and right-sided weakness. She was diagnosed with acute TIA as her symptoms had mostly subsided by the time she was evaluated here. CT scan of the head did not show any acute stroke. Neurology was consulted and they recommended doing a carotid Doppler study. This study showed that the patient had 40-59% stenosis on the left side internal carotid artery. Right ICA was within normal limits. Patient is doing much better today and no longer has any symptoms of weakness or speech abnormalities. She is stable for discharge back to senior living where she was undergoing physical therapy and rehabilitation. Per neurology recommendations, her aspirin will be increased to 325 mg by mouth daily. Patient is not an ideal candidate for anticoagulation with Coumadin due to her advanced age and high risk for falls. - Time Spent with Patient Total time spent providing and/or coordinating discharge services: Greater than 30 minutes (35 min) - Constitutional Vitals: Temp Pulse Resp BP Pulse Ox 98.3 F 81 15 110/75 98 09/12/16 12:00 09/12/16 12:00 09/12/16 12:00 09/12/16 12:00 09/12/16 12:00 General appearance: Present: A&O X 3, pleasant, no acute distress, answers questions appropriately - Neck Neck exam general surgery: Present: supple, trachea midline. Absent: lymphadenopathy - Respiratory Respiratory exam: Present: CTAB. Absent: accessory muscle use, rales, rhonchi, wheezes - Cardiovascular Cardiovascular exam: Present: RRR, +S1, +S2. Absent: diastolic murmur, gallop, rubs, systolic murmur - GI/Abdominal GI/Abdominal exam: Present: normal bowel sounds, soft, no peritoneal signs. Absent: distended, tenderness - Neurological Exam Neurological exam: Present: CN II-XII intact, oriented X3, no focal deficits, strengths equal and symetr throughout. Absent: facial droop, speech deficit
--- NOTE | 2016-09-12 13:15 | Physician Discharge Referral ---
ExtendedCare Referral Info Institutional Level of Care: Skilled - Diagnosis (1) Transient cerebral ischemia Priority: Primary Status: Acute (2) Essential hypertension Priority: Secondary Status: Chronic (3) Hyperlipidemia Priority: Secondary Status: Chronic Prognosis: Fair Aware of Diagnosis: Patient Aware of Prognosis: Patient - Transfer Medications Prescriptions: Aspirin Enteric Coated [Aspirin EC] 325 mg PO DAILY #30 tablet. Home Medications: Ferrous Sulfate [Iron] 325 mg PO DAILY 08/30/16 [History] Lisinopril [Zestril] 5 mg PO DAILY 08/30/16 [History] Aspirin Enteric Coated [Aspirin EC] 325 mg PO DAILY #30 tablet. 09/12/16 [Rx] Simvastatin [Zocor] 20 mg PO HS #0 tablet 09/12/16 [Rx] Allergies/Adverse Reactions: Allergies No Known Allergies Allergy (Verified 01/12/16 16:43) - Respiratory Orders Smoking Cessation: Smoking cessation has been advised. For more information, call the [employer] Quit Line at 3-024-MTAC-NOW. - Advance Directives Code Status: DNR-Arrest/Don't Intubate - Mobility Orders Other (per PT) - Rehabiliation Orders Rehab Potential: Fair Rehab Orders: Evaluation for Physical Therapy, Evaluation for Occupational Therapy CERTIFICATION: I certify that the transfer of the above named patient to an Extended Care Facility is necessary for the continuing treatment of the diagnosis listed. The above information is true and accurate reflection of patient's current condition. Confidential - Redisclosure prohibited without a patient's written consent.
--- NOTE | 2016-09-12 13:30 | Carotid Imaging Report ---
Carotid Duplex Patient Name:Nishi Littlejohn Order Number:[id number] Procedure Date:09/12/2016 Date:1925ge:89 yrs Gender:Female Lt BP:112 / 56 mmHg Rt.BP:112 / 56 mmHgHeart Rate: Location:[facility] Room #: 2NE22 Taxation Inspector:Emani Gustafson Referring MD:Mia Rutherford MD pulverizing and sifting operator:Estuardo Wong DO Reading MD:Len Mijares MD Primary Indications:TIA Risk Factors Yes/No Hypertension Hypercholesterolemia Hx of TIA Impressions: The right carotid artery has minimal plaque throughout. The left internal carotid artery has a 40-59% stenosis. Recommendations: Risk factor reduction. Follow-up carotid duplex in 1 year. Findings Carotid Duplex: Right: There is nonstenotic plaque in the right mid common carotid artery. There is smooth heterogeneous plaque. There is nonstenotic plaque in the right distal common carotid artery. There is smooth heterogeneous plaque. There is nonstenotic plaque in the right bifurcation. There is smooth heterogeneous plaque. Left: There is nonstenotic plaque in the left proximal common carotid artery. There is smooth heterogeneous plaque. There is nonstenotic plaque in the left distal common carotid artery. There is smooth heterogeneous plaque. There is nonstenotic plaque in the left bifurcation. There is smooth heterogeneous plaque. There is 40-59% stenosis in the left distal internal carotid artery. There is smooth homogeneous plaque. The left eca has turbulent flow with plaque. Carotid Results Right PSV EDV Assessment Proximal CCA 62 9 Normal Mid CCA 95 11 Non Stenotic Plaque Distal CCA 56 8 Non Stenotic Plaque Bifurcation 76 12 Non Stenotic Plaque Proximal ICA 65 11 Normal Mid ICA 65 10 Normal Distal ICA 63 10 Normal ECA 77 0 Normal Vertebral Artery 85 0 Antegrade Flow Left PSV EDV Assessment Proximal CCA 141 20 Non Stenotic Plaque Mid CCA 103 13 Normal Distal CCA 74 112 Non Stenotic Plaque Bifurcation 73 14 Non Stenotic Plaque Proximal ICA 88 17 Normal Mid ICA 98 22 Normal Distal ICA 133 31 40-59% stenosis ECA 143 0 Non Stenotic Plaque Vertebral Artery 37 8 Antegrade Flow Ratio's Right ICA/CCA Ratio: 0.68 ICA/CCA Values: 65/95 Left ICA/CCA Ratio: 1.29 ICA/CCA Values: 133/103 Updated by Len Mijares MD on 09/12/2016 1:24:09 PM electronically signed on 09/12/2016 1:24:33 PM with status of Final
--- NOTE | 2016-09-13 12:06 | Electrocardiograph Report ---
[place] [address] Test Date: 2016-09-11 Pat Name: Nishi Littlejohn Department: 104 Room: 2N2 Gender: F Hog Ringer: [facility] : 1925 Requested By: Daniel Laura Order Number: [id number] Reading MD: Dimitris Iyer MD Measurements Intervals [place] Rate: 86 P: 69 WV: 165 QRS: 45 QRSD: 79 T: 63 QT: 355 QTc: 398 Interpretive Statements SINUS RHYTHM BASELINE ARTIFACT Electronically Signed On 09-13-2016 12:04:30 EDT by Dimitris Iyer MD
== END 2016-09-12 16:00 ==
LOC: 2NENU 13:24 → EMEROO 13:24 → 2NENU 16:45
PROVIDERS: ADMIT Family Medicine; ATTEND Internal Medicine

== ENCOUNTER 2016-11-27 13:01 | Inpatient (IN) ==
--- NOTE | 2016-11-27 13:22 | Emergency Department Note ---
Disposition Clinical Impression: Hypotension due to blood loss Syncope Qualifiers: Syncope type: vasovagal syncope Qualified Code(s): R55 - Syncope and collapse GI bleed Qualifiers: GI bleed type/associated pathology: gastrointestinal hemorrhage with hematemesis Qualified Code(s): K92.0 - Hematemesis Laceration of arm, left, complicated Qualifiers: Encounter type: initial encounter Qualified Code(s): S41.112A - Laceration without foreign body of left upper arm, initial encounter Disposition: Admitted As Inpatient Condition: Serious General Adult HPI - General Chief complaint: ED Fall Stated complaint: fall Time Seen by Provider: 11/27/16 13:15 Source: patient Limitations: no limitations Nursing Notes Reviewed: Yes Vital Signs Reviewed: Yes - History of Present Illness Pain Scale: 0 - Related Data Home Medications Medication Instructions Recorded Confirmed Lisinopril [Zestril] 5 mg PO DAILY 08/30/16 11/27/16 Previous Rx's Medication Instructions Recorded Aspirin Enteric Coated [Aspirin EC] 325 mg PO DAILY #30 tablet. 09/12/16 Allergies Allergy/AdvReac Type Severity Reaction Status Date / Time No Known Allergies Allergy Verified 01/12/16 16:43 Past Medical History - Past Medical History Medical history: Reports: GERD, hyperlipidemia, hypertension, TIA Surgical history: Reports: non-contributory Psychiatric history: Reports: no psych history HEEL SEAM RUBBER history: Reports: no HEEL SEAM RUBBER history - Social History Smoking Status: Never smoker Smokeless Tobacco Status: No Alcohol use: Reports: none Drug use: Reports: none Physical Exam - General Limitations: no limitations General appearance: alert, in no apparent distress Course Vital Signs Temperature 97.7 F 11/27/16 13:03 Pulse Rate 103 11/27/16 13:03 Respiratory Rate 20 11/27/16 13:03 Blood Pressure 117/64 11/27/16 13:03 O2 Sat by Pulse Oximetry 100 11/27/16 13:03 Temperature 97.7 F 11/27/16 18:47 Pulse Rate 80 11/27/16 18:47 Respiratory Rate 16 11/27/16 18:47 Blood Pressure 128/79 11/27/16 18:47 O2 Sat by Pulse Oximetry 100 11/27/16 18:08 Oxygen Delivery Oxygen Delivery Room Air Medical Decision Making - MDM Narrative Medical decision making narrative: I examined this patient and my medical decision-making was reviewed with the Resident Physician. I agree with the documented findings, disposition and treatment plan as described except to the extent set forth below. Patient seen and evaluated on arrival with EMS and Dr. Lee, I agree with his evaluation and management plan, supervise care the patient's stay. Patient to follow home she says she thinks she got too far from her walker and fell and struck her left elbow left hand and left lower extremity. Denies striking her head or any loss consciousness. She is not up-to-date on tetanus but has had one before she has had a laceration over the dorsum of the left hand on her inner left ankle and on her elbow. We will clean this up to see if any of these need repaired she has very thin skin cysts some of these would be hard repair may just need some bandage. Update her tetanus, determine if she needs any imaging studies and then reassess. She is accompanied by her daughter they agree with the plan. 1350 hrs.: She is a very large laceration over her left elbow. Return image that. The skin tear on the dorsum of her hand is less than a centimeter and we will clean that and he is nonstick dressing she also has a small skin tear in her left ankle is less than a centimeter, no foreign bodies address that with nonstick bandage after cleaning it and the one on her arm will have to be repaired. 1436 hrs.: Patient came in walked over to the bathroom with assistance had an episode of having bloody bowel movement and vomited blood. She said this has never happened to her before. She was somewhat out of it when this occurred now she is awake she is nauseous she has vomited a second blood but still denies abdominal pain. Second IV, blood work, type and screen, nausea medications Protonix and then reassess and she will need admission. She is in agreement with this plan. We will update family. Elbow X-Ray 11/27/16 13:40 IMPRESSION: 1. At the medial aspect of the elbow there is a large amount of soft tissue air which likely corresponds with the history of a skin tear and adjacent contusion. No foreign body. 2. Mild posttraumatic olecranon bursitis. 3. Decreased bone mineral density. 4. Normal left elbow alignment with no acute fracture. 5. No acute left forearm fracture. D/ / 11/27/2016 14:26:55 Refugio Ernandez MD / [facility] Interpreting Provider: Refugio Ernandez MD Forearm X-Ray 11/27/16 13:40 IMPRESSION: 1. At the medial aspect of the elbow there is a large amount of soft tissue air which likely corresponds with the history of a skin tear and adjacent contusion. No foreign body. 2. Mild posttraumatic olecranon bursitis. 3. Decreased bone mineral density. 4. Normal left elbow alignment with no acute fracture. 5. No acute left forearm fracture. D/ / 11/27/2016 14:26:55 Refugio Ernandez MD / chapis Interpreting Provider: Refugio Ernandez MD Hand X-Ray 11/27/16 13:40 IMPRESSION: 1. No acute osseous abnormality. Patient appears severely osteopenic. 2. Severe polyarticular osteoarthritis as detailed above. 3. Calcification of the TFCC, could indicate CPPD. 4. Severely decreased bone mineral density. D/ / 11/27/2016 14:24:56 Aroldo Yanez MD / [facility] Interpreting Provider: Aroldo Yanze MD Head CT 11/27/16 13:40 IMPRESSION: No acute intracranial abnormality. D/ / Mariia Hobbs Cha, MD / Mariia Hobbs Cha, MD Interpreting Provider: Mariia Hobbs Cha, MD 1500 hrs.: Spoke with the family they said they felt that something is wrong with her for a while but she will see a doctor come to the hospital. The toes to go ahead and admit her to the hospital but they said she may refuse any type of endoscopy or any surgery. This point would like to stabilize the patient get her feeling better wait to see what her lab work looks like and then reassess. They and the patient are in agreement with this plan. 1636 hrs.: Repairing her laceration. She has gotten a liter of fluids. Her blood pressures up to 120 now. She says she feels fine but she is very pale. A stat call from the lab there hemoglobin is 5.6. We have got 2 units of blood non-crossed to administer her ICU bed will speak to [facility]. She has not decided on CODE STATUS at this point she is can be a full code until otherwise noted. And then will speak with endoscopy for possibility of a scope. I went ahead and start her on Ancef also for her wound. She has got Protonix administered. 1700 hrs.: Patient's arm is repaired in a simple fashion 13 cm laceration complex closed with simple sutures. Under aseptic conditions. Giving her Ancef. Then we will go ahead and get her admitted to the hospital. She does have her blood from the lab. And she says she is feeling better blood pressure is stable at this point. 1900 hrs. critical care time excluding any separately billable procedures is 60 minutes. - Lab Data Result diagrams: 11/27/16 16:13 11/27/16 15:48 Lab Results 11/27/16 11/27/16 11/27/16 Range/Units 15:48 15:48 15:48 WBC (4.3-11.1) K/mcL RBC (3.82-4.97) M/mcL Hgb (11.5-15.4) g/dL Hct (35.3-44.9) % MCV (83.0-100.0) fL MCH (28.0-33.3) pg MCHC (31.6-35.5) g/dL RDW (11.5-14.5) % Plt Count (140-400) K/mcL MPV (9.4-12.4) fL Immature Gran % (0-4) % Seg Neutrophils % % Lymphocytes % % Monocytes % % Eosinophils % % Basophils % % Neutrophils # (1.6-8.9) K/mcL Lymphocytes # (0.6-4.6) K/mcL Monocytes # (0.0-1.3) K/mcL Eosinophils # (0.0-0.6) K/mcL Basophils # (0.0-0.2) K/mcL Platelet Estimate (Normal) Immature Plt Fraction (1.1-6.1) % PT 12.4 H (9.4-12.1) Seconds INR 1.1 Sodium 133 L (136-145) mEq/L Potassium 3.7 (3.5-4.5) mEq/L Chloride 110 H (98-109) mEq/L Carbon Dioxide 16 L (19-29) mEq/L BUN 34 H (7-20) mg/dL Creatinine 0.68 (0.57-1.11) mg/dL Est GFR ( Amer) > 60 (> 60) Est GFR (Non-Af Amer) > 60 (> 60) BUN/Creatinine Ratio 50 H (6-26) Glucose 126 H (70-99) mg/dL Calculated Osmolality 285 (280-300) Lactic Acid 1.6 (0.5-2.2) mmol/L Calcium 6.9 L (8.6-10.8) mg/dL Total Bilirubin 0.2 (0.2-1.2) mg/dL AST 10 (5-34) Units/L ALT 9 (0-55) Units/L Alkaline Phosphatase 57 (38-126) Units/L Troponin I (0-0.03) ng/mL Serum Total Protein 3.9 L (6.0-8.3) g/dL Albumin 1.9 L (3.5-5.0) g/dL Globulin 2.0 L (2.4-3.5) g/dL Albumin/Globulin Ratio 1.0 L (1.1-2.2) Lipase < 10 (8-78) Units/L Specimen Rejected Blood Type Antibody Screen Crossmatch 11/27/16 11/27/16 11/27/16 Range/Units 15:48 15:48 15:48 WBC (4.3-11.1) K/mcL RBC (3.82-4.97) M/mcL Hgb (11.5-15.4) g/dL Hct (35.3-44.9) % MCV (83.0-100.0) fL MCH (28.0-33.3) pg MCHC (31.6-35.5) g/dL RDW (11.5-14.5) % Plt Count (140-400) K/mcL MPV (9.4-12.4) fL Immature Gran % (0-4) % Seg Neutrophils % % Lymphocytes % % Monocytes % % Eosinophils % % Basophils % % Neutrophils # (1.6-8.9) K/mcL Lymphocytes # (0.6-4.6) K/mcL Monocytes # (0.0-1.3) K/mcL Eosinophils # (0.0-0.6) K/mcL Basophils # (0.0-0.2) K/mcL Platelet Estimate (Normal) Immature Plt Fraction (1.1-6.1) % PT (9.4-12.1) Seconds INR Sodium (136-145) mEq/L Potassium (3.5-4.5) mEq/L Chloride (98-109) mEq/L Carbon Dioxide (19-29) mEq/L BUN (7-20) mg/dL Creatinine (0.57-1.11) mg/dL Est GFR ( Amer) (> 60) Est GFR (Non-Af Amer) (> 60) BUN/Creatinine Ratio (6-26) Glucose (70-99) mg/dL Calculated Osmolality (280-300) Lactic Acid (0.5-2.2) mmol/L Calcium (8.6-10.8) mg/dL Total Bilirubin (0.2-1.2) mg/dL AST (5-34) Units/L ALT (0-55) Units/L Alkaline Phosphatase (38-126) Units/L Troponin I 0.02 (0-0.03) ng/mL Serum Total Protein (6.0-8.3) g/dL Albumin (3.5-5.0) g/dL Globulin (2.4-3.5) g/dL Albumin/Globulin Ratio (1.1-2.2) Lipase (8-78) Units/L Specimen Rejected Volume Blood Type O POSITIVE Antibody Screen NEGATIVE Crossmatch See Detail 11/27/16 Range/Units 16:13 WBC 16.1 H (4.3-11.1) K/mcL RBC 2.12 L (3.82-4.97) M/mcL Hgb 5.6 L* (11.5-15.4) g/dL Hct 18.5 L (35.3-44.9) % MCV 87.3 (83.0-100.0) fL MCH 26.4 L (28.0-33.3) pg MCHC 30.3 L (31.6-35.5) g/dL RDW 13.8 (11.5-14.5) % Plt Count 209 (140-400) K/mcL MPV 8.9 L (9.4-12.4) fL Immature Gran % 0.7 (0-4) % Seg Neutrophils % 94.1 % Lymphocytes % 2.1 % Monocytes % 3.0 % Eosinophils % 0.0 % Basophils % 0.1 % Neutrophils # 15.2 H (1.6-8.9) K/mcL Lymphocytes # 0.3 L (0.6-4.6) K/mcL Monocytes # 0.5 (0.0-1.3) K/mcL Eosinophils # 0.0 (0.0-0.6) K/mcL Basophils # 0.0 (0.0-0.2) K/mcL Platelet Estimate Normal (Normal) Immature Plt Fraction 1.4 (1.1-6.1) % PT (9.4-12.1) Seconds INR Sodium (136-145) mEq/L Potassium (3.5-4.5) mEq/L Chloride (98-109) mEq/L Carbon Dioxide (19-29) mEq/L BUN (7-20) mg/dL Creatinine (0.57-1.11) mg/dL Est GFR ( Amer) (> 60) Est GFR (Non-Af Amer) (> 60) BUN/Creatinine Ratio (6-26) Glucose (70-99) mg/dL Calculated Osmolality (280-300) Lactic Acid (0.5-2.2) mmol/L Calcium (8.6-10.8) mg/dL Total Bilirubin (0.2-1.2) mg/dL AST (5-34) Units/L ALT (0-55) Units/L Alkaline Phosphatase (38-126) Units/L Troponin I (0-0.03) ng/mL Serum Total Protein (6.0-8.3) g/dL Albumin (3.5-5.0) g/dL Globulin (2.4-3.5) g/dL Albumin/Globulin Ratio (1.1-2.2) Lipase (8-78) Units/L Specimen Rejected Blood Type Antibody Screen Crossmatch
--- NOTE | 2016-11-27 13:51 | Emergency Department Note ---
Disposition Clinical Impression: Hypotension due to blood loss Syncope Qualifiers: Syncope type: vasovagal syncope Qualified Code(s): R55 - Syncope and collapse GI bleed Qualifiers: GI bleed type/associated pathology: gastrointestinal hemorrhage with hematemesis Qualified Code(s): K92.0 - Hematemesis Laceration of arm, left, complicated Qualifiers: Encounter type: initial encounter Qualified Code(s): S41.112A - Laceration without foreign body of left upper arm, initial encounter Disposition: Admitted As Inpatient Condition: Serious Referrals: NONE,PCP [Primary Care Provider] - Forms: ED Satisfaction Letter Time of Disposition: 18:57 General Adult HPI - General Chief complaint: ED Fall Stated complaint: fall Time Seen by Provider: 11/27/16 13:15 Source: patient Limitations: no limitations Nursing Notes Reviewed: Yes Vital Signs Reviewed: Yes - History of Present Illness HPI Narrative: Patient is an 89-year-old female that presents to the emergency department after a fall. Patient denies any loss of consciousness or hitting her head. The fall was unwitnessed. Patient did hit her elbow and the top of her hand as well as her lower left leg. Patient denies any pain at this time. Patient is unsure of her tetanus status. Patient denies any numbness or tingling. Patient denies being on any blood thinners at this time other than aspirin. Patient states that she has no other symptoms and no pain at this time. Pain Scale: 0 - Related Data Home Medications Medication Instructions Recorded Confirmed Lisinopril [Zestril] 5 mg PO DAILY 08/30/16 11/27/16 Previous Rx's Medication Instructions Recorded Aspirin Enteric Coated [Aspirin EC] 325 mg PO DAILY #30 tablet. 09/12/16 Allergies Allergy/AdvReac Type Severity Reaction Status Date / Time No Known Allergies Allergy Verified 01/12/16 16:43 All systems ED: reviewed and negative except as stated. 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 Absent: respiratory distress, wheezes - Cardiovascular Cardiovascular exam: Present: regular rate, normal rhythm, normal heart sounds, +S1, +S2 - Abdominal Exam Abdominal exam: Present: soft, Non-Tender, normal bowel sounds - Expanded Upper Extremity Exam Shoulder exam: Present: normal inspection, full ROM. Absent: tenderness, deformity Arm exam: Present: normal inspection, full ROM. Absent: tenderness Elbow exam: Present: full ROM, laceration (Large laceration to left elbow.) Forearm/Wrist exam: Present: normal inspection, full ROM. Absent: tenderness Hand exam: Present: full ROM, other (Skin tear). Absent: tenderness - Expanded Lower Extremity Exam Lower leg exam: Present: full ROM, tenderness, other (Skin tear on the left lower extremity) - Neurological Exam Neurological exam: Present: alert, oriented X3, CN II-XII intact. Absent: motor sensory deficit - Expanded Neurological Exam Patient oriented to: Present: person, place, time Speech: Present: fluid speech Cranial nerves: EOM function (II, III, IV, ): Normal, facial sensation (V): Normal, facial palsy (VII): Normal, gag reflex (IX): Normal, spinal accessory function (XI): Normal, tongue deviation (XII): Normal Cerebellar function: finger to nose: Normal, heel to rodrigues: Abnormal Left, Abnormal Right (Patient is able to cross the midline with her legs and set it on the other leg but does not run it down the rodrigues on either side. Patient uses a walker at home. I do not suspect that this is related to a stroke or a bleed. She is symmetrical with her heel to rodrigues.) Motor strength - LUE: 5/5 Motor strength - RUE: 5/5 Motor strength - LLE: 5/5 Motor strength - RLE: 5/5 Sensory exam upper extremity: light touch: Normal Sensory exam lower extremity: light touch: Normal Coma Scale Eye Opening: Spontaneous Coma Scale Motor Response: Obeys Commands Coma Scale Verbal Response: Oriented Coma Scale Total: 15 - Psychiatric Psychiatric exam: Present: normal affect, normal mood - Skin Skin exam: Present: warm, dry, other (13cm Laceration to the left elbow, small skin tear to the left hand, [id number] skin tear to the left lower leg) Course - Reevaluation(s) Reevaluation #1: Patient had an episode of bloody stool as well as vomiting blood. Patient had decreased level of consciousness according to the tech that was helping her use the bathroom. Patient still denies any abdominal pain. 2 large-bore IVs were placed. We have ordered a type and screen and will give the patient IV fluids. We have given the patient Protonix. Time: 14:30 - Consultations Consultation #1: I called and spoke with Dr. Nakul Garcia at 1725 and made him aware the patient was having a GI bleed. He stated that he would see the patient tomorrow. Time: 17:25 Consultation #2: I called and spoke the hospitalist service with Mohit Garland and informed him of the patient having a GI bleed. He has excepted the patient services and stated that they would work on getting her into the ICU. Time: 17:30 Vital Signs Temperature 97.7 F 11/27/16 13:03 Pulse Rate 103 11/27/16 13:03 Respiratory Rate 20 11/27/16 13:03 Blood Pressure 117/64 11/27/16 13:03 O2 Sat by Pulse Oximetry 100 11/27/16 13:03 Temperature 97.8 F 11/27/16 17:17 Pulse Rate 88 11/27/16 17:17 Respiratory Rate 16 11/27/16 17:17 Blood Pressure 128/85 11/27/16 17:17 O2 Sat by Pulse Oximetry 100 11/27/16 17:17 Oxygen Delivery Oxygen Delivery Room Air Procedures - Laceration Laceration 1 Site: upper extremity Side (If applicable): left Size (cm): 13 Description: linear Depth: simple, single layer Local Anesthetic: lidocaine 1%, with epi Amount of Anesthesia Used (mL): 7 Pre-repair: wound explored, irrigated extensively Skin layer closed with: nylon Size: 4-0 Number of sutures/erika: 13 Technique: simple, interrupted Medical Decision Making - MDM Narrative Medical decision making narrative: Due to the patient having an unwitnessed fall we will CT her head even though she stated she did not lose consciousness or hit her head. We also x-rayed the left elbow forearm and hand due to there being a laceration on the left elbow and skin tear on the left hand. The CT of the head and the x-rays were negative. The patient denies pain anywhere throughout the body. The laceration on the left elbow will require repair with sutures. While the patient was in the emergency department she had an episode of hematochezia and hematemesis. The patient became weak and somewhat lethargic. Patient had 2 large-bore IVs started she was given fluids as well as transfused with 2 units of blood due to her hemoglobin being 5.6. She was hypotensive but after the fluids and blood she became normotensive. The patient was started on Protonix. We also started the patient on Ancef. The patient did state that she may have had a couple of episodes of hematemesis but never told anybody about this. I called and spoke with Dr. Francis who is tongue presser for endoscopy and stated that he would see her tomorrow. I called and spoke with the hospitalist service and they have accepted the patient to their services and will try and get her into an ICU bed. The laceration on the left elbow was repaired with 13 4-0 nylon sutures. The patient tolerated this procedure well. Patient appears to be doing much better at this time and understands that she will be admitted to the hospital for further evaluation. Dr. Francis came and saw the patient while she was still in the emergency department. The patient will be admitted to the hospitalist service for further evaluation and management with a consult to Dr. Francis for endoscopy. - Medical Records Medical records reviewed: Yes I reviewed the patient's medical records. - Lab Data Lab results reviewed: Yes I reviewed the patient's lab results. Result diagrams: 11/27/16 16:13 11/27/16 15:48 Lab Results 11/27/16 11/27/16 11/27/16 Range/Units 15:48 15:48 15:48 WBC (4.3-11.1) K/mcL RBC (3.82-4.97) M/mcL Hgb (11.5-15.4) g/dL Hct (35.3-44.9) % MCV (83.0-100.0) fL MCH (28.0-33.3) pg MCHC (31.6-35.5) g/dL RDW (11.5-14.5) % Plt Count (140-400) K/mcL MPV (9.4-12.4) fL Immature Gran % (0-4) % Seg Neutrophils % % Lymphocytes % % Monocytes % % Eosinophils % % Basophils % % Neutrophils # (1.6-8.9) K/mcL Lymphocytes # (0.6-4.6) K/mcL Monocytes # (0.0-1.3) K/mcL Eosinophils # (0.0-0.6) K/mcL Basophils # (0.0-0.2) K/mcL Platelet Estimate (Normal) Immature Plt Fraction (1.1-6.1) % PT 12.4 H (9.4-12.1) Seconds INR 1.1 Sodium 133 L (136-145) mEq/L Potassium 3.7 (3.5-4.5) mEq/L Chloride 110 H (98-109) mEq/L Carbon Dioxide 16 L (19-29) mEq/L BUN 34 H (7-20) mg/dL Creatinine 0.68 (0.57-1.11) mg/dL Est GFR ( Amer) > 60 (> 60) Est GFR (Non-Af Amer) > 60 (> 60) BUN/Creatinine Ratio 50 H (6-26) Glucose 126 H (70-99) mg/dL Calculated Osmolality 285 (280-300) Lactic Acid 1.6 (0.5-2.2) mmol/L Calcium 6.9 L (8.6-10.8) mg/dL Total Bilirubin 0.2 (0.2-1.2) mg/dL AST 10 (5-34) Units/L ALT 9 (0-55) Units/L Alkaline Phosphatase 57 (38-126) Units/L Troponin I (0-0.03) ng/mL Serum Total Protein 3.9 L (6.0-8.3) g/dL Albumin 1.9 L (3.5-5.0) g/dL Globulin 2.0 L (2.4-3.5) g/dL Albumin/Globulin Ratio 1.0 L (1.1-2.2) Lipase < 10 (8-78) Units/L Specimen Rejected Blood Type Antibody Screen Crossmatch 11/27/16 11/27/16 11/27/16 Range/Units 15:48 15:48 15:48 WBC (4.3-11.1) K/mcL RBC (3.82-4.97) M/mcL Hgb (11.5-15.4) g/dL Hct (35.3-44.9) % MCV (83.0-100.0) fL MCH (28.0-33.3) pg MCHC (31.6-35.5) g/dL RDW (11.5-14.5) % Plt Count (140-400) K/mcL MPV (9.4-12.4) fL Immature Gran % (0-4) % Seg Neutrophils % % Lymphocytes % % Monocytes % % Eosinophils % % Basophils % % Neutrophils # (1.6-8.9) K/mcL Lymphocytes # (0.6-4.6) K/mcL Monocytes # (0.0-1.3) K/mcL Eosinophils # (0.0-0.6) K/mcL Basophils # (0.0-0.2) K/mcL Platelet Estimate (Normal) Immature Plt Fraction (1.1-6.1) % PT (9.4-12.1) Seconds INR Sodium (136-145) mEq/L Potassium (3.5-4.5) mEq/L Chloride (98-109) mEq/L Carbon Dioxide (19-29) mEq/L BUN (7-20) mg/dL Creatinine (0.57-1.11) mg/dL Est GFR ( Amer) (> 60) Est GFR (Non-Af Amer) (> 60) BUN/Creatinine Ratio (6-26) Glucose (70-99) mg/dL Calculated Osmolality (280-300) Lactic Acid (0.5-2.2) mmol/L Calcium (8.6-10.8) mg/dL Total Bilirubin (0.2-1.2) mg/dL AST (5-34) Units/L ALT (0-55) Units/L Alkaline Phosphatase (38-126) Units/L Troponin I 0.02 (0-0.03) ng/mL Serum Total Protein (6.0-8.3) g/dL Albumin (3.5-5.0) g/dL Globulin (2.4-3.5) g/dL Albumin/Globulin Ratio (1.1-2.2) Lipase (8-78) Units/L Specimen Rejected Volume Blood Type O POSITIVE Antibody Screen NEGATIVE Crossmatch See Detail 11/27/16 Range/Units 16:13 WBC 16.1 H (4.3-11.1) K/mcL RBC 2.12 L (3.82-4.97) M/mcL Hgb 5.6 L* (11.5-15.4) g/dL Hct 18.5 L (35.3-44.9) % MCV 87.3 (83.0-100.0) fL MCH 26.4 L (28.0-33.3) pg MCHC 30.3 L (31.6-35.5) g/dL RDW 13.8 (11.5-14.5) % Plt Count 209 (140-400) K/mcL MPV 8.9 L (9.4-12.4) fL Immature Gran % 0.7 (0-4) % Seg Neutrophils % 94.1 % Lymphocytes % 2.1 % Monocytes % 3.0 % Eosinophils % 0.0 % Basophils % 0.1 % Neutrophils # 15.2 H (1.6-8.9) K/mcL Lymphocytes # 0.3 L (0.6-4.6) K/mcL Monocytes # 0.5 (0.0-1.3) K/mcL Eosinophils # 0.0 (0.0-0.6) K/mcL Basophils # 0.0 (0.0-0.2) K/mcL Platelet Estimate Normal (Normal) Immature Plt Fraction 1.4 (1.1-6.1) % PT (9.4-12.1) Seconds INR Sodium (136-145) mEq/L Potassium (3.5-4.5) mEq/L Chloride (98-109) mEq/L Carbon Dioxide (19-29) mEq/L BUN (7-20) mg/dL Creatinine (0.57-1.11) mg/dL Est GFR ( Amer) (> 60) Est GFR (Non-Af Amer) (> 60) BUN/Creatinine Ratio (6-26) Glucose (70-99) mg/dL Calculated Osmolality (280-300) Lactic Acid (0.5-2.2) mmol/L Calcium (8.6-10.8) mg/dL Total Bilirubin (0.2-1.2) mg/dL AST (5-34) Units/L ALT (0-55) Units/L Alkaline Phosphatase (38-126) Units/L Troponin I (0-0.03) ng/mL Serum Total Protein (6.0-8.3) g/dL Albumin (3.5-5.0) g/dL Globulin (2.4-3.5) g/dL Albumin/Globulin Ratio (1.1-2.2) Lipase (8-78) Units/L Specimen Rejected Blood Type Antibody Screen Crossmatch - Radiology Data Radiology results reviewed: Yes I reviewed the patient's radiology results. Elbow X-Ray 11/27/16 13:40 IMPRESSION: 1. At the medial aspect of the elbow there is a large amount of soft tissue air which likely corresponds with the history of a skin tear and adjacent contusion. No foreign body. 2. Mild posttraumatic olecranon bursitis. 3. Decreased bone mineral density. 4. Normal left elbow alignment with no acute fracture. 5. No acute left forearm fracture. D/ / 11/27/2016 14:26:55 Refugio Ernandez MD / chapis Interpreting Provider: Refugio Ernandez MD Forearm X-Ray 11/27/16 13:40 IMPRESSION: 1. At the medial aspect of the elbow there is a large amount of soft tissue air which likely corresponds with the history of a skin tear and adjacent contusion. No foreign body. 2. Mild posttraumatic olecranon bursitis. 3. Decreased bone mineral density. 4. Normal left elbow alignment with no acute fracture. 5. No acute left forearm fracture. D/ / 11/27/2016 14:26:55 Refugio Ernandez MD / chapis Interpreting Provider: Refugio Ernandez MD Hand X-Ray 11/27/16 13:40 IMPRESSION: 1. No acute osseous abnormality. Patient appears severely osteopenic. 2. Severe polyarticular osteoarthritis as detailed above. 3. Calcification of the TFCC, could indicate CPPD. 4. Severely decreased bone mineral density. D/ / 11/27/2016 14:24:56 Aroldo Yanez MD / chapis Interpreting Provider: Aroldo Yanez MD Head CT 11/27/16 13:40 IMPRESSION: No acute intracranial abnormality. D/ / Mariia Hobbs Cha, MD / Mariia Hobbs Cha, MD Interpreting Provider: Mariia Hobbs Cha, MD - EKG Data EKG #1 EKG attestation: Yes I reviewed and interpreted this EKG. EKG results narrative: Patient's EKG shows sinus tachycardia at a rate of 100 bpm, NV interval 155, QRS duration of 82, QTC of 389 with a normal axis. There are no ischemic changes noted on this EKG.
[2016-11-27] MEDS ORDERED: Td (TENIVAC) Vaccine 0.5 ML VIAL IM ONE (13:53)
[2016-11-27] MEDS ORDERED: Lidocaine/EPI 1:100k 1% 20 ML VIAL INFILT ONE (14:04)
[2016-11-27] MEDS ORDERED: Pantoprazole 80 MG in 0.9 % Sodium Chloride 50 ML IVPB ONE (14:33)
[2016-11-27] MEDS ORDERED: 0.9 % Sodium Chloride 1,000 ML IVC ONE (14:33)
[2016-11-27 16:06] LABS: INR 1.1; Prothrombin Time 12.4 Seconds (9.4-12.1)
[2016-11-27 16:12] LABS: Alanine Aminotransferase 9 Units/L (0-55); Alkaline Phosphatase 57 Units/L (38-126); Aspartate Amino Transferase 10 Units/L (5-34); BUN/Creatinine Ratio 50 (6-26); Bilirubin,Total 0.2 mg/dL (0.2-1.2); Blood Urea Nitrogen 34 mg/dL (7-20); Calcium 6.9 mg/dL (8.6-10.8); Carbon Dioxide 16 mEq/L (19-29); Chloride 110 mEq/L (98-109); Glucose 126 mg/dL (70-99); Osmolality,Calculated 285 (280-300); Potassium 3.7 mEq/L (3.5-4.5); Sodium 133 mEq/L (136-145); Total Protein 3.9 g/dL (6.0-8.3); eGFR For African Americans > 60 (> 60); eGFR For Non-African Americans > 60 (> 60)
[2016-11-27 16:13] LABS: Albumin 1.9 g/dL (3.5-5.0); Lipase < 10 Units/L (8-78)
[2016-11-27] MEDS ORDERED: 0.9 % Sodium Chloride 1,000 ML ONE ×2 (16:16→22:12)
[2016-11-27 16:20] LABS: Basophils % 0.1 %; Hematocrit 18.5 % (35.3-44.9); Immature Granulocytes % 0.7 % (0-4); Immature Platelets 1.4 % (1.1-6.1); Lymphocytes # 0.3 K/mcL (0.6-4.6); Lymphocytes % 2.1 %; Mean Corpuscular HGB Conc 30.3 g/dL (31.6-35.5); Mean Corpuscular Hemoglobin 26.4 pg (28.0-33.3); Mean Corpuscular Volume 87.3 fL (83.0-100.0); Mean Platelet Volume 8.9 fL (9.4-12.4); Monocytes # 0.5 K/mcL (0.0-1.3); Platelet Count 209 K/mcL (140-400); Red Blood Count 2.12 M/mcL (3.82-4.97); Red Cell Distribution Width 13.8 % (11.5-14.5); Segmented Neutrophils % 94.1 %
[2016-11-27 16:21] LABS: Neutrophils # 15.2 K/mcL (1.6-8.9)
[2016-11-27 16:24] LABS: Hemoglobin 5.6 g/dL (11.5-15.4)
[2016-11-27] MEDS ORDERED: ceFAZolin 1,000 MG in D5% in Water (Mini-Bag+) 100 ML IVPB ONE (16:38)
[2016-11-27 16:42] LABS: Platelet Estimate Normal (Normal)
[2016-11-27] MEDS ORDERED: Acetaminophen 325 MG TABLET PO PRN (18:17)
[2016-11-27] MEDS ORDERED: Ondansetron 4 MG/2 ML VIAL IVP PRN (18:17)
[2016-11-27] MEDS ORDERED: Naloxone 0.4 MG/ML INJ IVP PRN (18:17)
--- NOTE | 2016-11-27 18:38 | Internal Medicine Consult Note ---
Date of Encounter: 11/27/16 Time of Encounter: 17:30 - Assessment and Plan (1) Upper GI bleeding Current Visit: Yes Status: Acute Assessment and plan: She has had a sign. upper GI bleed.. this could be Ulcer, AVM; diverticula or CA less likely. ED has started blood transfusion, she will be NPO and need IV PPI therapy. I plan to do EGD in the AM.. I have discussed risks and benefits of EGD, to include , with multiple family members present. (2) Acute blood loss anemia Current Visit: Yes Status: Acute (3) Hypotension due to blood loss Current Visit: Yes Status: Acute Internal Medicine - CN: HPI - Data of Consult Patient: new to practice Consult date: 11/27/16 Requesting Physician: Seamus Wilkinson MD - Consult Narrative Reason for consult: Hematemeis and Melena History of present illness: Ms. Littlejohn is a 89 year old female presented to the ED with a fall, which appears to be syncope due to GI bleeding. I was called by the ED. Hospitalist will be the admitting. She reports having melena 2-3 days ago, then while getting up in the ED, had emesis of blood clots. She has no GERD, but family presents states always taking antacids for what sounds like dyspepsia. NO GERD, no NSAIDS and her wt. has not changed. No prior GI bleeding and no previous endoscopy. Past Med Surg Social Fam HX - Past Medical History Medical history: hyperlipidemia, hypertension, TIA Psychiatric history: no psych history - Past Surgical History Surgical History: cholecystectomy, hip replacement - Social History Smoking Status: Never smoker Smokeless Tobacco Status: No Alcohol use: none Drug use: none - Constitutional Constitutional: no fatigue, no weight loss Additional comments: Walks with a walker at home. Lives by herself, watched closely by family - Cardiovascular Cardiovascular ROS IM: edema, syncope, no chest pain, no diaphoresis, no dyspnea - Respiratory Respiratory: no cough, no dyspnea, no hemoptysis - Gastrointestinal Gastrointestinal: dyspepsia, hematemesis, melena, vomiting, no diarrhea, no early satiety, no heartburn Internal Medicine - CN: Meds Lisinopril [Zestril] 5 mg PO DAILY 08/30/16 [History] Aspirin Enteric Coated [Aspirin EC] 325 mg PO DAILY #30 tablet. 09/12/16 [Rx] 3 Allergy/AdvReac Type Severity Reaction Status Date / Time No Known Allergies Allergy Verified 01/12/16 16:43 Internal Medicine - CN: Exam - Constitutional Vitals: Temp Pulse Resp BP Pulse Ox 97.7 F 82 18 147/58 100 11/27/16 18:29 11/27/16 18:29 11/27/16 18:29 11/27/16 18:29 11/27/16 18:08 General appearance IM: Present: A&O X 3, pleasant, underweight, answers questions appropriately Exam: Mod. frail in appearance - Head Head exam: Present: atraumatic - ENT ENT exam: Present: mucous membranes moist - Neck Neck exam general surgery: Present: supple, trachea midline - Respiratory Respiratory exam: Present: CTAB. Absent: tachypnea - Cardiovascular Cardiovascular exam IM: Present: distant heart sounds, RRR. Absent: tachycardia - GI/Abdominal GI/Abdominal exam IM: Present: normal bowel sounds, soft. Absent: guarding, rigid - Rectal Rectal exam: Present: black stool Internal Medicine - CN: Reslt - Labs CBC & Chem 7: 11/27/16 16:13 11/27/16 15:48 - ABG Interpretation ABG results: PT/INR, D-dimer PT 12.4 Seconds (9.4-12.1) H 11/27/16 15:48 Consult Discharge Plan - Plan Referrals: NONE,PCP [Primary Care Provider] -
--- NOTE | 2016-11-27 19:06 | Internal Med History&Physical ---
<Kenzie Daily M - Last Filed: 11/27/16 20:25> Date of Encounter: 11/27/16 Time of Encounter: 18:55 Assessment and Plan (1) Upper GI bleeding Current visit: Yes Status: Acute Patient had 2 episodes of bloody emesis and one bloody bowel movement while in the ED today. Patient denies previous episodes of bleeding. She is on 325mg of aspirin daily, but not taking any other NSAIDs or anti-coagulants. She was given 80mg of protonix, IV fluids and 2 units of blood in the ED Hold aspirin H/H Q6hr continuous night monitor Protonix drip NPO Dr. Garcia has been consulted for scope and plans to take patient tomorrow. (2) Acute blood loss anemia Current visit: Yes Status: Acute Hgb 5.6 today after patient had episodes of bloody emesis and bloody bowel movement. Hold Aspirin. Avoid NSAIDs. 2units of Packed RBCs ordered and transfused in ED. continuous night monitor H/H q6hrs (3) Syncope Current visit: Yes Status: Acute Patient had episode of syncope this morning after standing up from the toilet. Since found to have acute blood loss anemia secondary to GI bleed. Syncope due to severe anemia. Qualifiers: Syncope type: unspecified Qualified Code(s): R55 - Syncope and collapse (4) Hypotension due to blood loss Current visit: Yes Status: Acute Patient's blood pressure dipped to 90s/50s after episode of bloody vomit and bloody stool. Her blood pressure responded to fluid and blood transfusion. (5) Laceration of arm, left, complicated Current visit: Yes Status: Acute Patient suffered a laceration to her left elbow when she fell during her syncopal episode today. She was given tetanus vaccine and cefazolin in ED. The laceration was sutured and dressed in ED. She will need sutures out in 1 week. Qualifiers: Encounter type: initial encounter Qualified Code(s): S41.112A - Laceration without foreign body of left upper arm, initial encounter (6) DVT prophylaxis Current visit: Yes Status: Acute Sequential compression devices. Patient with active GI bleed, pharmacologic prophylaxis contraindicated. Internal Medicine - H&P: HPI Chief complaint: fall, bloody emesis, bloody stool Admitted From: Emergency Dept Plans for Post Hospital Care: Home History of present illness: Ms. Littlejohn is a 89 year old female with hypertension, GERD, history of TIA presented to the ED today with complaints of fall at home. She reports she was got up from the toilet and blacked out. She had injuries to her left arm, with laceration and left leg with skin tear. While in the ED she had 2 episodes of vomiting blood and bloody bowel movement. She reports symptoms of occasional lightheadedness at home, but denies previous episodes of vomiting or bloody stools. She denies any abdominal pain. She denies black stools or diarrhea. She denies any chest pain, palpitations, shortness of breath. Evaluation in the ED was significant for Hgb of 5.6 and Hct of 18.5. Troponin was negative at 0.02. PT and INR were normal. Lactate was normal at 1.6. Head CT showed no acute intracranial abnormality. Patient was given IV fluids, 2 units of blood and 80mg of Protonix in the ED. Her left elbow laceration was sutured and dressed. Dr. Garcia was consulted and plans to scope patient in the morning. On exam, patient was pale, alert and oriented, in no acute distress. Vital signs were stable. Heart had regular rate and rhythm, lungs were clear. Past Med Surg Social Fam HX - Past Medical History Medical history: GERD, hyperlipidemia, hypertension, TIA Psychiatric history: no psych history - Past Surgical History Surgical History: non-contributory - Social History Smoking Status: Never smoker Smokeless Tobacco Status: No Alcohol use: none Drug use: none Internal Medicine - H&P: Meds Lisinopril [Zestril] 5 mg PO DAILY 08/30/16 [History] Aspirin Enteric Coated [Aspirin EC] 325 mg PO DAILY #30 tablet. 09/12/16 [Rx] 3 Allergy/AdvReac Type Severity Reaction Status Date / Time No Known Allergies Allergy Verified 01/12/16 16:43 All Systems PM: A 10-system review of systems was performed and is negative for pertinent findings except as documented above in the HPI. - Constitutional Constitutional: falls, no chills, no fever(s), no night sweats - EENT Eyes: no change in vision, no discharge, no pain, no photophobia Ears: no ear discharge, no ear pain, no tinnitus Nose, mouth and throat: no dysphagia, no nasal discharge, no neck pain, no sore throat - Cardiovascular Cardiovascular ROS IM: lightheadedness, syncope, no chest pain, no diaphoresis, no dyspnea, no palpitations - Respiratory Respiratory: no cough, no dyspnea, no wheezing, no excessive phlegm production - Gastrointestinal Gastrointestinal: hematemesis, hematochezia, no abdominal pain, no diarrhea, no melena, no nausea, no vomiting - Genitourinary Genitourinary: no change in urinary stream, no dysuria, no flank pain, no hematuria - Musculoskeletal Musculoskeletal ROS IM: no numbness, no tingling - Integumentary Integumentary IM: no rash, no unusual bruising - Neurological Neurological ROS: no confusion, no convulsions, no focal weakness, no numbness, no tingling, no tremor(s) - Hematologic/Lymphatic Hematologic/Lymphatic: no easy bruising - Constitutional Vitals: Temp Pulse Resp BP Pulse Ox 97.7 F 80 16 128/79 100 11/27/16 18:47 11/27/16 18:47 11/27/16 18:47 11/27/16 18:47 11/27/16 18:08 General appearance: Present: A&O X 3, pleasant, underweight, answers questions appropriately - Head Head exam: Present: atraumatic, normocephalic - Eye Eye exam: Present: PERRL, conjuntiva pink, sclera anicteric Pupils: Present: PERRL - Neck Neck exam general surgery: Present: supple, trachea midline. Absent: lymphadenopathy - Respiratory Respiratory exam: Present: CTAB. Absent: accessory muscle use, rales, rhonchi, wheezes - Cardiovascular Cardiovascular exam: Present: RRR, +S1, +S2. Absent: diastolic murmur, gallop, rubs, systolic murmur - GI/Abdominal GI/Abdominal exam: Present: normal bowel sounds, soft, no peritoneal signs. Absent: distended, tenderness - Extremities Exam Extremities exam: Present: warm, radial pulses palpable and symmetrical. Absent : calf tenderness, cyanotic, pedal edema - Neurological Exam Neurological exam: Present: CN II-XII intact, oriented X3, no focal deficits. Absent: pronater drift, facial droop, speech deficit - Skin Skin exam: Present: dry, intact Internal Med - H&P Results - Labs CBC & Chem 7: 11/27/16 16:13 11/27/16 15:48 Labs: All Lab Results (24 Hours) 11/27/16 11/27/16 11/27/16 Range/Units 15:48 15:48 15:48 WBC (4.3-11.1) K/mcL RBC (3.82-4.97) M/mcL Hgb (11.5-15.4) g/dL Hct (35.3-44.9) % MCV (83.0-100.0) fL MCH (28.0-33.3) pg MCHC (31.6-35.5) g/dL RDW (11.5-14.5) % Plt Count (140-400) K/mcL MPV (9.4-12.4) fL Immature Gran % (0-4) % Seg Neutrophils % % Lymphocytes % % Monocytes % % Eosinophils % % Basophils % % Neutrophils # (1.6-8.9) K/mcL Lymphocytes # (0.6-4.6) K/mcL Monocytes # (0.0-1.3) K/mcL Eosinophils # (0.0-0.6) K/mcL Basophils # (0.0-0.2) K/mcL Platelet Estimate (Normal) Immature Plt Fraction (1.1-6.1) % PT 12.4 H (9.4-12.1) Seconds INR 1.1 Sodium 133 L (136-145) mEq/L Potassium 3.7 (3.5-4.5) mEq/L Chloride 110 H (98-109) mEq/L Carbon Dioxide 16 L (19-29) mEq/L BUN 34 H (7-20) mg/dL Creatinine 0.68 (0.57-1.11) mg/dL Est GFR ( Amer) > 60 (> 60) Est GFR (Non-Af Amer) > 60 (> 60) BUN/Creatinine Ratio 50 H (6-26) Glucose 126 H (70-99) mg/dL Calculated Osmolality 285 (280-300) Lactic Acid 1.6 (0.5-2.2) mmol/L Calcium 6.9 L (8.6-10.8) mg/dL Total Bilirubin 0.2 (0.2-1.2) mg/dL AST 10 (5-34) Units/L ALT 9 (0-55) Units/L Alkaline Phosphatase 57 (38-126) Units/L Troponin I (0-0.03) ng/mL Serum Total Protein 3.9 L (6.0-8.3) g/dL Albumin 1.9 L (3.5-5.0) g/dL Globulin 2.0 L (2.4-3.5) g/dL Albumin/Globulin Ratio 1.0 L (1.1-2.2) Lipase < 10 (8-78) Units/L Specimen Rejected Blood Type Antibody Screen Crossmatch 11/27/16 11/27/16 11/27/16 Range/Units 15:48 15:48 15:48 WBC (4.3-11.1) K/mcL RBC (3.82-4.97) M/mcL Hgb (11.5-15.4) g/dL Hct (35.3-44.9) % MCV (83.0-100.0) fL MCH (28.0-33.3) pg MCHC (31.6-35.5) g/dL RDW (11.5-14.5) % Plt Count (140-400) K/mcL MPV (9.4-12.4) fL Immature Gran % (0-4) % Seg Neutrophils % % Lymphocytes % % Monocytes % % Eosinophils % % Basophils % % Neutrophils # (1.6-8.9) K/mcL Lymphocytes # (0.6-4.6) K/mcL Monocytes # (0.0-1.3) K/mcL Eosinophils # (0.0-0.6) K/mcL Basophils # (0.0-0.2) K/mcL Platelet Estimate (Normal) Immature Plt Fraction (1.1-6.1) % PT (9.4-12.1) Seconds INR Sodium (136-145) mEq/L Potassium (3.5-4.5) mEq/L Chloride (98-109) mEq/L Carbon Dioxide (19-29) mEq/L BUN (7-20) mg/dL Creatinine (0.57-1.11) mg/dL Est GFR ( Amer) (> 60) Est GFR (Non-Af Amer) (> 60) BUN/Creatinine Ratio (6-26) Glucose (70-99) mg/dL Calculated Osmolality (280-300) Lactic Acid (0.5-2.2) mmol/L Calcium (8.6-10.8) mg/dL Total Bilirubin (0.2-1.2) mg/dL AST (5-34) Units/L ALT (0-55) Units/L Alkaline Phosphatase (38-126) Units/L Troponin I 0.02 (0-0.03) ng/mL Serum Total Protein (6.0-8.3) g/dL Albumin (3.5-5.0) g/dL Globulin (2.4-3.5) g/dL Albumin/Globulin Ratio (1.1-2.2) Lipase (8-78) Units/L Specimen Rejected Volume Blood Type O POSITIVE Antibody Screen NEGATIVE Crossmatch See Detail 11/27/16 Range/Units 16:13 WBC 16.1 H (4.3-11.1) K/mcL RBC 2.12 L (3.82-4.97) M/mcL Hgb 5.6 L* (11.5-15.4) g/dL Hct 18.5 L (35.3-44.9) % MCV 87.3 (83.0-100.0) fL MCH 26.4 L (28.0-33.3) pg MCHC 30.3 L (31.6-35.5) g/dL RDW 13.8 (11.5-14.5) % Plt Count 209 (140-400) K/mcL MPV 8.9 L (9.4-12.4) fL Immature Gran % 0.7 (0-4) % Seg Neutrophils % 94.1 % Lymphocytes % 2.1 % Monocytes % 3.0 % Eosinophils % 0.0 % Basophils % 0.1 % Neutrophils # 15.2 H (1.6-8.9) K/mcL Lymphocytes # 0.3 L (0.6-4.6) K/mcL Monocytes # 0.5 (0.0-1.3) K/mcL Eosinophils # 0.0 (0.0-0.6) K/mcL Basophils # 0.0 (0.0-0.2) K/mcL Platelet Estimate Normal (Normal) Immature Plt Fraction 1.4 (1.1-6.1) % PT (9.4-12.1) Seconds INR Sodium (136-145) mEq/L Potassium (3.5-4.5) mEq/L Chloride (98-109) mEq/L Carbon Dioxide (19-29) mEq/L BUN (7-20) mg/dL Creatinine (0.57-1.11) mg/dL Est GFR ( Amer) (> 60) Est GFR (Non-Af Amer) (> 60) BUN/Creatinine Ratio (6-26) Glucose (70-99) mg/dL Calculated Osmolality (280-300) Lactic Acid (0.5-2.2) mmol/L Calcium (8.6-10.8) mg/dL Total Bilirubin (0.2-1.2) mg/dL AST (5-34) Units/L ALT (0-55) Units/L Alkaline Phosphatase (38-126) Units/L Troponin I (0-0.03) ng/mL Serum Total Protein (6.0-8.3) g/dL Albumin (3.5-5.0) g/dL Globulin (2.4-3.5) g/dL Albumin/Globulin Ratio (1.1-2.2) Lipase (8-78) Units/L Specimen Rejected Blood Type Antibody Screen Crossmatch - Diagnostic Studies Chest x-ray Additional comments: CT scan - head Additional comments: Head CT 11/27/16 13:40 IMPRESSION: No acute intracranial abnormality. D/ / Mariia Hobbs Cha, MD / Mariia Hobbs Cha, MD Interpreting Provider: Mariia Hobbs Cha, MD Other Images Additional comments: Elbow X-Ray 11/27/16 13:40 IMPRESSION: 1. At the medial aspect of the elbow there is a large amount of soft tissue air which likely corresponds with the history of a skin tear and adjacent contusion. No foreign body. 2. Mild posttraumatic olecranon bursitis. 3. Decreased bone mineral density. 4. Normal left elbow alignment with no acute fracture. 5. No acute left forearm fracture. D/ / 11/27/2016 14:26:55 Refugio Ernandez MD / chapis Interpreting Provider: Refugio Ernandez MD Forearm X-Ray 11/27/16 13:40 IMPRESSION: 1. At the medial aspect of the elbow there is a large amount of soft tissue air which likely corresponds with the history of a skin tear and adjacent contusion. No foreign body. 2. Mild posttraumatic olecranon bursitis. 3. Decreased bone mineral density. 4. Normal left elbow alignment with no acute fracture. 5. No acute left forearm fracture. D/ / 11/27/2016 14:26:55 Refugio Ernandez MD / chapis Interpreting Provider: Refugio Ernandez MD Hand X-Ray 11/27/16 13:40 IMPRESSION: 1. No acute osseous abnormality. Patient appears severely osteopenic. 2. Severe polyarticular osteoarthritis as detailed above. 3. Calcification of the TFCC, could indicate CPPD. 4. Severely decreased bone mineral density. D/ / 11/27/2016 14:24:56 Aroldo Yanez MD / chapis Interpreting Provider: Aroldo Yanez MD <Sherri Sims - Last Filed: 11/27/16 22:58> Date of Encounter: 11/27/16 Time of Encounter: 22:10 Internal Medicine - H&P: HPI History of present illness: Ms. Littlejohn is a 89 year old female All Systems PM: A 10-system review of systems was performed and is negative for pertinent findings except as documented above in the HPI. - Constitutional Vitals: Temp Pulse Resp BP Pulse Ox 97.7 F 83 4 123/65 91 11/27/16 19:47 11/27/16 19:47 11/27/16 20:08 11/27/16 20:08 11/27/16 20:08 Internal Med - H&P Results - Labs CBC & Chem 7: 11/27/16 22:25 11/27/16 15:48 Labs: Short CBC 11/27/16 Range/Units 22:25 Hgb 8.4 L D (11.5-15.4) g/dL Hct 25.0 L (35.3-44.9) % - Attending Attestation Case discussed with CAROLYN Daily, I agree with her documented findings, assessment, and plan.
[2016-11-27] MEDS ORDERED: Pantoprazole 40 MG VIAL IVP SCH (21:00)
[2016-11-27 22:31] LABS: Hemoglobin 8.4 g/dL (11.5-15.4)
--- NOTE | 2016-11-27 22:42 | Event Note ---
Date of Encounter: 11/27/16 Time of Encounter: 22:24
[2016-11-27] MEDS: Pantoprazole 40 MG in 0.9 % Sodium Chloride Mini Bag 100 ML IVC SCH (22:49)
--- NOTE | 2016-11-27 22:57 | Event Note ---
Date of Encounter: 11/27/16 Time of Encounter: 22:10 Patient is an 89y/o female with PMH of HTN who is admitted for acute blood loss anemia secondary to upper GI bleed. A rapid response was called due to an acute change in patient's mentation. Upon arrival, patient was found to have hemetemesis and BRBPR. Shortly after the episode, she was able to communicate and denied any abd pain or prior such episodes. Vitals remains wnl. Dr. Francis was called and updated on patient's current status. Stat Labs were ordered. She will be transferred to the ICU for close monitoring. Pt has elected to be DNR/DNI.
[2016-11-27] MEDS ORDERED: Octreotide 400 MCG in 0.9 % Sodium Chloride 100 ML IVC SCH (23:00)
[2016-11-27] MEDS ORDERED: 0.9 % Sodium Chloride 1,000 ML IVC SCH (23:00)
[2016-11-27] MEDS ORDERED: *HR* Midazolam HCl 5 MG/5 ML VIAL IVP ONE (23:12)
[2016-11-27] MEDS ORDERED: Simethicone 40 MG/0.6 ML MLS IR ONE (23:13)
[2016-11-27] MEDS ORDERED: *HR* Midazolam HCl 2 MG/2 ML VIAL IVP PRN (23:13)
[2016-11-27] MEDS ORDERED: Tetracaine/Benzocaine/Butamben 200MG/SPRAY (100SPY/BOT) MM ONE (23:13)
--- NOTE | 2016-11-27 23:14 | Pre-Sedation Evaluation ---
Pre-sedation evaluation - Pre-sedation checklist Date of procedure: 11/27/16 Procedure: EGD Recent Vitals: Last Vital Signs Temp 97.7 F 11/27/16 19:47 Pulse 83 11/27/16 19:47 Resp 4 11/27/16 20:08 BP 123/65 11/27/16 20:08 Pulse Ox 91 11/27/16 20:08 H&P (including ROS) documented in medical record: Yes Previous reaction to sedatives/anesthetics: No Dietary Status: NPO 6 hours prior to procedure Airway Assessment: Patient can open mouth completely, TMJ function normal Possible difficult airway: No ASA Classification *see protocol: CLASS III-Severe systemic disease
--- NOTE | 2016-11-28 00:15 | Event Note ---
Date of Encounter: 11/28/16 Time of Encounter: 00:12 EGD Esophagus.. With Severe distal esophagitis, multiple small red spots noted. Placed one clip on the larger area, used Argon coagulation to cauterize the other areas. No active bleeding before or after procedure Small Hiatal hernia noted, fresh clots seen there, but could not be removed. Stomach and Duodenum are okay. Discussed with the Hospitalist
[2016-11-28] MEDS ORDERED: Sodium Bicarbonate 150 MEQ in 0.45 % Sodium Chloride 1,000 ML IVC SCH (00:45)
[2016-11-28 00:51] LABS: Hematocrit 22.4 % (35.3-44.9); Hemoglobin 7.6 g/dL (11.5-15.4)
[2016-11-28] MEDS ORDERED: 0.9 % Sodium Chloride 250 ML ONE (01:34)
[2016-11-28] MEDS: Pantoprazole 40 MG in 0.9 % Sodium Chloride Mini Bag 100 ML IVC SCH ×4 (04:09→20:43)
[2016-11-28 07:02] LABS: Basophils % 0.1 %; Hemoglobin 9.1 g/dL (11.5-15.4); Immature Granulocytes % 0.4 % (0-4); Lymphocytes % 6.6 %; Mean Platelet Volume 9.4 fL (9.4-12.4); Monocytes # 0.7 K/mcL (0.0-1.3); Monocytes % 4.2 %; Neutrophils # 13.8 K/mcL (1.6-8.9); Platelet Count 100 K/mcL (140-400); Red Blood Count 3.25 M/mcL (3.82-4.97); Red Cell Distribution Width 15.4 % (11.5-14.5); Segmented Neutrophils % 88.7 %
[2016-11-28 07:14] LABS: BUN/Creatinine Ratio 52 (6-26); Blood Urea Nitrogen 34 mg/dL (7-20); Calcium 6.6 mg/dL (8.6-10.8); Carbon Dioxide 21 mEq/L (19-29); Chloride 111 mEq/L (98-109); Glucose 126 mg/dL (70-99); Osmolality,Calculated 295 (280-300); Potassium 3.7 mEq/L (3.5-4.5); Sodium 138 mEq/L (136-145); eGFR For African Americans > 60 (> 60); eGFR For Non-African Americans > 60 (> 60)
[2016-11-28] MEDS ORDERED: 0.9 % Sodium Chloride 1,000 ML IVC SCH (08:15)
--- NOTE | 2016-11-28 08:59 | Internal Med Progress Note ---
Date of Encounter: 11/28/16 Time of Encounter: 08:56 - Assessment and plan (1) Acute blood loss anemia Current Visit: Yes Status: Acute Assessment and plan: Patient presented with syncope, noted to have acute drop in hemoglobin along with hematemesis. Hemoglobin currently is noted to be stable, improved with 2 units PRBC transfusion. Patient underwent EGD last night status post electrocauterization of bleeding esophagitis monitor hemoglobin every 6 hourly. (2) Upper GI bleeding Current Visit: Yes Status: Acute Assessment and plan: Admitted with hematemesis and rectal bleed. Also developed associated blood loss anemia and hypotension. Underwent urgent EGD, noted to have esophagitis with bleeding, hiatal hernia with fresh clots and received electrocauterization. Continue IV Protonix drip and hold octreotide drip for now. Clear liquid diet as tolerated. Continue to monitor hemoglobin. (3) Syncope Current Visit: Yes Status: Resolved Assessment and plan: Likely secondary to blood loss anemia. Qualifiers: Syncope type: unspecified Qualified Code(s): R55 - Syncope and collapse (4) Essential hypertension Current Visit: Yes Status: Chronic (5) Transient cerebral ischemia Current Visit: Yes Status: Chronic Qualifiers: Transient cerebral ischemia type: other Qualified Code(s): G45.8 - Other transient cerebral ischemic attacks and related syndromes (6) Hypotension due to blood loss Current Visit: Yes Status: Resolved Assessment and plan: Blood pressure currently improved, noted to be mildly elevated. Restart home antihypertensives. (7) Laceration of arm, left, complicated Current Visit: Yes Status: Acute Assessment and plan: Sustained left arm injury during her fall and received suturing in the emergency room. Continue dressing changes and suture removal in 7 days. Qualifiers: Encounter type: initial encounter Qualified Code(s): S41.112A - Laceration without foreign body of left upper arm, initial encounter - Subjective Interval history: Reports feeling well, no chest or abdominal pain, no nausea, vomiting, diarrhea ; does not remember yesterday's events including her GI bleed and EGD; wants to have a cup of coffee now! - Constitutional Vitals: Temp Pulse Resp BP Pulse Ox 98.7 F 88 16 140/67 100 11/28/16 04:37 11/28/16 06:00 11/28/16 06:00 11/28/16 06:00 11/28/16 06:00 General appearance: Present: cachectic, A&O X 3, pleasant, answers questions appropriately - Respiratory Respiratory exam: Present: CTAB. Absent: accessory muscle use, rales, rhonchi, wheezes - Cardiovascular Cardiovascular exam: Present: RRR, +S1, +S2. Absent: diastolic murmur, gallop, rubs, systolic murmur - GI/Abdominal GI/Abdominal exam: Present: normal bowel sounds, soft, no peritoneal signs. Absent: distended, tenderness - Extremities Exam Extremities exam: Present: full ROM, warm, radial pulses palpable and symmetrical. Absent: calf tenderness, cyanotic, pedal edema Internal Medicine: Result - Labs CBC & Chem 7: 11/29/16 01:12 11/29/16 01:12 Labs: Short CBC 11/27/16 11/28/16 11/28/16 Range/Units 22:25 00:36 06:54 WBC 15.6 H (4.3-11.1) K/mcL Hgb 8.4 L D 7.6 L 9.1 L D (11.5-15.4) g/dL Hct 25.0 L 22.4 L 26.0 L (35.3-44.9) % Plt Count 100 L D (140-400) K/mcL Neutrophils # 13.8 H (1.6-8.9) K/mcL BMP 11/28/16 06:54 Sodium 138 Potassium 3.7 Chloride 111 H Carbon Dioxide 21 BUN 34 H Creatinine 0.65 Glucose 126 H Calcium 6.6 L - ABG Interpretation ABG results: PT/INR, D-dimer PT 12.4 Seconds (9.4-12.1) H 11/27/16 15:48 - VTE Documentation of Mechanical Device: Intermittent pneumatic compression device Consult Discharge Plan - Plan Referrals: NONE,PCP [Primary Care Provider] -
--- NOTE | 2016-11-28 10:13 | Internal Med Progress Note ---
Date of Encounter: 11/28/16 Time of Encounter: 08:45 - Assessment and plan (1) Erosive esophagitis Current Visit: Yes Status: Acute Assessment and plan: ON PPI and Carafate. Have talked with the Hospitalist service.. will give clear liquids today, stop Octotreotide. IV PPI therapy for another 48 hrs..Can move out of ICU later in day if doing well. (2) Upper GI bleeding Current Visit: Yes Status: Acute Assessment and plan: Secondary to erosive esophagitis.. No further bleeding at this time. (3) Acute blood loss anemia Current Visit: Yes Status: Acute - Subjective Interval history: She has had no further emesis or melena... Awake and very bright and appropriate ; she is wanting coffee; Sitting up in bed. Denies abd. pain. Total of 3 units of blood infused. - Constitutional Vitals: Temp Pulse Resp BP Pulse Ox 99.0 F 89 14 127/72 98 11/28/16 08:00 11/28/16 09:00 11/28/16 09:00 11/28/16 09:00 11/28/16 09:00 General appearance: Present: cachectic, A&O X 3, pleasant, answers questions appropriately - Respiratory Respiratory exam: Present: CTAB - Cardiovascular Cardiovascular exam: Present: RRR. Absent: JVD, tachycardia - GI/Abdominal GI/Abdominal exam: Present: normal bowel sounds, soft, no peritoneal signs. Absent: tenderness Internal Medicine: Result - Labs CBC & Chem 7: 11/28/16 06:54 11/28/16 06:54 Labs: Short CBC 11/27/16 11/28/16 11/28/16 Range/Units 22:25 00:36 06:54 WBC 15.6 H (4.3-11.1) K/mcL Hgb 8.4 L D 7.6 L 9.1 L D (11.5-15.4) g/dL Hct 25.0 L 22.4 L 26.0 L (35.3-44.9) % Plt Count 100 L D (140-400) K/mcL Neutrophils # 13.8 H (1.6-8.9) K/mcL BMP 11/28/16 06:54 Sodium 138 Potassium 3.7 Chloride 111 H Carbon Dioxide 21 BUN 34 H Creatinine 0.65 Glucose 126 H Calcium 6.6 L - ABG Interpretation ABG results: PT/INR, D-dimer PT 12.4 Seconds (9.4-12.1) H 11/27/16 15:48 - VTE Documentation of Mechanical Device: Intermittent pneumatic compression device Consult Discharge Plan - Plan Referrals: NONE,PCP [Primary Care Provider] -
[2016-11-28 12:26] LABS: Hematocrit 26.6 % (35.3-44.9)
[2016-11-28] MEDS ORDERED: Naloxone 0.4 MG/ML INJ IVP PRN (15:30)
[2016-11-28] MEDS ORDERED: Acetaminophen 325 MG TABLET PO PRN (15:30)
[2016-11-28] MEDS ORDERED: Ondansetron 4 MG/2 ML VIAL IVP PRN (15:30)
[2016-11-28] MEDS: 0.9 % Sodium Chloride 1,000 ML IVC SCH (17:44)
[2016-11-28 18:47] LABS: Hematocrit 23.5 % (35.3-44.9)
[2016-11-29 01:26] LABS: Hematocrit 22.7 % (35.3-44.9); Hemoglobin 7.8 g/dL (11.5-15.4)
[2016-11-29 01:27] LABS: Basophils % 0.3 %
[2016-11-29 01:28] LABS: Eosinophils % 0.4 %; Hematocrit 22.4 % (35.3-44.9); Hemoglobin 7.7 g/dL (11.5-15.4); Immature Granulocytes % 0.5 % (0-4); Immature Platelets 3.4 % (1.1-6.1); Lymphocytes # 1.1 K/mcL (0.6-4.6); Lymphocytes % 10.7 %; Mean Corpuscular HGB Conc 34.4 g/dL (31.6-35.5); Mean Corpuscular Hemoglobin 28.2 pg (28.0-33.3); Mean Corpuscular Volume 82.1 fL (83.0-100.0); Mean Platelet Volume 9.6 fL (9.4-12.4); Monocytes # 0.7 K/mcL (0.0-1.3); Monocytes % 6.2 %; Neutrophils # 8.7 K/mcL (1.6-8.9); Platelet Count 112 K/mcL (140-400); Red Blood Count 2.73 M/mcL (3.82-4.97); Red Cell Distribution Width 16.3 % (11.5-14.5); Segmented Neutrophils % 81.9 %
[2016-11-29 01:45] LABS: BUN/Creatinine Ratio 33 (6-26); Calcium 6.3 mg/dL (8.6-10.8); Carbon Dioxide 20 mEq/L (19-29); Chloride 111 mEq/L (98-109); Glucose 118 mg/dL (70-99); Osmolality,Calculated 286 (280-300); Potassium 3.4 mEq/L (3.5-4.5); Sodium 136 mEq/L (136-145); eGFR For African Americans > 60 (> 60); eGFR For Non-African Americans > 60 (> 60)
[2016-11-29 01:47] LABS: Blood Urea Nitrogen 21 mg/dL (7-20)
[2016-11-29] MEDS: Pantoprazole 40 MG in 0.9 % Sodium Chloride Mini Bag 100 ML IVC SCH ×7 (01:51→20:38)
[2016-11-29] MEDS: 0.9 % Sodium Chloride 1,000 ML IVC SCH ×2 (01:53→12:20)
--- NOTE | 2016-11-29 08:48 | Electrocardiograph Report ---
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
[2016-11-29] MEDS ORDERED: 0.9 % Sodium Chloride 250 ML ONE (12:52)
--- NOTE | 2016-11-29 15:50 | Internal Med Progress Note ---
Date of Encounter: 11/29/16 Time of Encounter: 11:00 - Assessment and plan (1) Acute blood loss anemia Current Visit: Yes Status: Acute Assessment and plan: Hemoglobin 7.7 this morning. We will transfuse 1 more unit of packed red blood cells. Continue to monitor blood counts. If hemoglobin levels stabilize, may be discharged tomorrow if she is not having any active bleeding at this time. Moderate risk for complications (2) Erosive esophagitis Current Visit: Yes Status: Acute Assessment and plan: Continue current management with IV PPI and Carafate. Continue IV PPI for 24 hours. (3) Essential hypertension Current Visit: Yes Status: Chronic Assessment and plan: Uncontrolled. We will increase lisinopril dosage to 10 mg (4) Laceration of arm, left, complicated Current Visit: Yes Status: Acute Assessment and plan: Sutured. Plan to remove sutures in 1 week Qualifiers: Encounter type: initial encounter Qualified Code(s): S41.112A - Laceration without foreign body of left upper arm, initial encounter (5) Syncope Current Visit: Yes Status: Acute Assessment and plan: Improved. Likely from hypotension and blood loss. Qualifiers: Syncope type: unspecified Qualified Code(s): R55 - Syncope and collapse (6) Upper GI bleeding Current Visit: Yes Status: Acute Assessment and plan: Management as above (7) DVT prophylaxis Current Visit: Yes Status: Acute - Subjective Interval history: Patient doing well today. Feels somewhat tired but no dizziness or lightheadedness. Has not had any new episodes of bloody emesis or bowel movements. - Constitutional Vitals: Temp Pulse Resp BP Pulse Ox 98.0 F 90 16 175/74 97 11/29/16 15:22 11/29/16 15:22 11/29/16 15:22 11/29/16 15:22 11/29/16 15:22 General appearance: Present: cachectic, A&O X 3, pleasant, answers questions appropriately - Neck Neck exam general surgery: Present: supple, trachea midline. Absent: lymphadenopathy - GI/Abdominal GI/Abdominal exam: Present: normal bowel sounds, soft, no peritoneal signs. Absent: distended, tenderness - Extremities Exam Extremities exam: Present: warm, radial pulses palpable and symmetrical. Absent : calf tenderness, cyanotic, pedal edema - Skin Skin exam: Present: dry, intact, pallor Internal Medicine: Result - Labs CBC & Chem 7: 11/29/16 01:12 11/29/16 01:12 Labs: Short CBC 11/28/16 11/29/16 11/29/16 Range/Units 18:40 01:12 01:12 WBC 10.6 (4.3-11.1) K/mcL Hgb 8.0 L 7.8 L 7.7 L (11.5-15.4) g/dL Hct 23.5 L 22.7 L 22.4 L (35.3-44.9) % Plt Count 112 L (140-400) K/mcL Neutrophils # 8.7 (1.6-8.9) K/mcL BMP 11/29/16 01:12 Sodium 136 Potassium 3.4 L Chloride 111 H Carbon Dioxide 20 BUN 21 H D Creatinine 0.63 Glucose 118 H Calcium 6.3 L - ABG Interpretation ABG results: PT/INR, D-dimer PT 12.4 Seconds (9.4-12.1) H 11/27/16 15:48 - VTE Documentation of Mechanical Device: Intermittent pneumatic compression device Consult Discharge Plan - Plan Referrals: NONE,PCP [Primary Care Provider] -
[2016-11-30] MEDS: Pantoprazole 40 MG in 0.9 % Sodium Chloride Mini Bag 100 ML IVC SCH ×2 (04:16→08:42)
[2016-11-30 05:59] LABS: Basophils % 0.2 %; Eosinophils % 0.2 %; Hematocrit 27.3 % (35.3-44.9); Immature Granulocytes % 0.8 % (0-4); Lymphocytes # 0.5 K/mcL (0.6-4.6); Lymphocytes % 4.3 %; Mean Corpuscular HGB Conc 34.1 g/dL (31.6-35.5); Mean Corpuscular Hemoglobin 27.8 pg (28.0-33.3); Mean Corpuscular Volume 81.7 fL (83.0-100.0); Mean Platelet Volume 9.7 fL (9.4-12.4); Monocytes # 0.5 K/mcL (0.0-1.3); Monocytes % 4.2 %; Platelet Count 104 K/mcL (140-400); Red Blood Count 3.34 M/mcL (3.82-4.97); Red Cell Distribution Width 15.5 % (11.5-14.5); Segmented Neutrophils % 90.3 %
[2016-11-30 06:00] LABS: Hemoglobin 9.3 g/dL (11.5-15.4)
--- NOTE | 2016-11-30 16:52 | Internal Med Progress Note ---
Date of Encounter: 11/30/16 Time of Encounter: 12:00 - Assessment and plan (1) GI bleed Current Visit: Yes Status: Resolved Assessment and plan: -No current active bleeding. -GI consult at and EGD showed severe distal esophagitis with multiple small red spots noted. One clip on the larger area was placed and Argon coagulation was used to cauterize the other areas. No active bleeding before or after procedure. -Hemoglobin stable status post 4 units of packed red blood cells. -Continue to monitor. Qualifiers: GI bleed type/associated pathology: gastrointestinal hemorrhage with hematemesis Qualified Code(s): K92.0 - Hematemesis (2) Acute blood loss anemia Current Visit: Yes Status: Resolved Assessment and plan: Secondary to and management as above. (3) Erosive esophagitis Current Visit: Yes Status: Acute Assessment and plan: EGD as above. -Continue PPI and Carafate. -Appreciate any further recommendations from GI. (4) Essential hypertension Current Visit: Yes Status: Chronic Assessment and plan: -Blood pressure improved after starting OMID inhibitor. -We will continue to monitor. (5) Hypokalemia Current Visit: Yes Status: Acute Assessment and plan: -Potassium 3.4. -We will continue to monitor. (6) Hyperlipidemia Current Visit: No Status: Chronic Assessment and plan: -Stable; continue statin. Qualifiers: Hyperlipidemia type: unspecified Qualified Code(s): E78.5 - Hyperlipidemia , unspecified - Subjective Interval history: Patient without any complaints this morning and no acute events overnight. Hemoglobin remained stable this morning. - Constitutional Vitals: Temp Pulse Resp BP Pulse Ox 97.7 F 100 18 146/69 98 11/30/16 14:52 11/30/16 14:52 11/30/16 14:52 11/30/16 14:52 11/30/16 14:52 General appearance: Present: cachectic, A&O X 3, pleasant, answers questions appropriately - Respiratory Respiratory exam: Present: CTAB. Absent: rales, respiratory distress, rhonchi, wheezes - Cardiovascular Cardiovascular exam: Present: RRR, +S1, +S2. Absent: diastolic murmur, gallop, rubs, systolic murmur Internal Medicine: Result - Labs CBC & Chem 7: 11/30/16 05:35 11/29/16 01:12 Labs: Short CBC 11/30/16 Range/Units 05:35 WBC 12.2 H (4.3-11.1) K/mcL Hgb 9.3 L D (11.5-15.4) g/dL Hct 27.3 L (35.3-44.9) % Plt Count 104 L (140-400) K/mcL Neutrophils # 11.0 H (1.6-8.9) K/mcL - ABG Interpretation ABG results: PT/INR, D-dimer PT 12.4 Seconds (9.4-12.1) H 11/27/16 15:48 - VTE Documentation of Mechanical Device: Intermittent pneumatic compression device Consult Discharge Plan - Plan Referrals: NONE,PCP [Primary Care Provider] -
[2016-12-01 05:01] LABS: Bilirubin,Urine Negative (Negative); Blood,Urine Negative (Negative); Clarity,Urine Clear (Clear); Color,Urine Yellow (Yellow); Glucose,Urine (UA) Normal (Normal); Ketones,Urine 15 mg/dL (Negative); Leukocyte Esterase,Urine Trace (Negative); Nitrite,Urine Negative (Negative); Protein,Urine Negative (Neg-Trace); Specific Gravity,Urine 1.011 (1.010-1.025); Urobilinogen,Urine Normal (Normal)
[2016-12-01 10:33] LABS: Basophils % 0.2 %; Eosinophils % 0.4 %; Hematocrit 29.1 % (35.3-44.9); Hemoglobin 9.7 g/dL (11.5-15.4); Immature Granulocytes % 0.3 % (0-4); Lymphocytes # 0.5 K/mcL (0.6-4.6); Lymphocytes % 5.5 %; Mean Corpuscular HGB Conc 33.3 g/dL (31.6-35.5); Mean Corpuscular Volume 84.1 fL (83.0-100.0); Mean Platelet Volume 9.7 fL (9.4-12.4); Monocytes # 0.5 K/mcL (0.0-1.3); Monocytes % 5.3 %; Neutrophils # 8.3 K/mcL (1.6-8.9); Platelet Count 154 K/mcL (140-400); Red Blood Count 3.46 M/mcL (3.82-4.97); Red Cell Distribution Width 15.6 % (11.5-14.5); Segmented Neutrophils % 88.3 %
[2016-12-01 10:47] LABS: BUN/Creatinine Ratio 9 (6-26); Calcium 7.1 mg/dL (8.6-10.8); Carbon Dioxide 22 mEq/L (19-29); Chloride 107 mEq/L (98-109); Glucose 97 mg/dL (70-99); Osmolality,Calculated 278 (280-300); Sodium 135 mEq/L (136-145); eGFR For African Americans > 60 (> 60); eGFR For Non-African Americans > 60 (> 60)
[2016-12-01 11:01] LABS: Blood Urea Nitrogen 6 mg/dL (7-20)
[2016-12-01 11:02] LABS: Potassium 2.5 mEq/L (3.5-4.5)
--- NOTE | 2016-12-01 15:26 | Internal Med Progress Note ---
Date of Encounter: 12/01/16 Time of Encounter: 11:00 - Assessment and plan (1) GI bleed Current Visit: Yes Status: Resolved Assessment and plan: -No current active bleeding. -EGD showed severe distal esophagitis with multiple small red spots noted. -GI placed one clip on the larger area and Argon coagulation was used to cauterize the other areas. No active bleeding before or after procedure per GI. -Hemoglobin stable status post 4 units of packed red blood cells. -Continue to monitor. Qualifiers: GI bleed type/associated pathology: gastrointestinal hemorrhage with hematemesis Qualified Code(s): K92.0 - Hematemesis (2) Acute blood loss anemia Current Visit: Yes Status: Resolved Assessment and plan: -Secondary to the above. -Patient's hemoglobin has been stable; will continue to monitor. (3) Erosive esophagitis Current Visit: Yes Status: Acute Assessment and plan: -EGD as above. -Continue PPI and Carafate. -Appreciate any further recommendations from GI. (4) Hypokalemia Current Visit: Yes Status: Acute Assessment and plan: -Patient with a potassium of 2.3 this morning. -K Randy has been ordered and we will continue to monitor potassium. (5) Essential hypertension Current Visit: Yes Status: Chronic Assessment and plan: -Blood pressure continues to be slightly elevated after adding OMID inhibitor. -Will increase dose of OMID inhibitor and continue to monitor. (6) Syncope Current Visit: Yes Status: Resolved Assessment and plan: -Suspect secondary to hypovolemia due to acute blood loss anemia. Qualifiers: Syncope type: unspecified Qualified Code(s): R55 - Syncope and collapse (7) Laceration of arm, left, complicated Current Visit: Yes Status: Acute Assessment and plan: -Sustained left arm injury during her fall -Sutured in the emergency room. -Patient with some serosanguinous drainage this morning. -Continue dressing changes and suture removal in 7 days. Qualifiers: Encounter type: initial encounter Qualified Code(s): S41.112A - Laceration without foreign body of left upper arm, initial encounter - Subjective Interval history: Patient without any complaints this morning and no acute events overnight. Hemoglobin remains stable however patient now with hypokalemia. In addition patient with serosanguinous drainage from left upper extremity sutured cut. - Constitutional Vitals: Temp Pulse Resp BP Pulse Ox 98.4 F 86 14 158/64 96 12/01/16 14:57 12/01/16 14:57 12/01/16 14:57 12/01/16 14:57 12/01/16 14:57 General appearance: Present: cachectic, A&O X 3, pleasant, answers questions appropriately - Respiratory Respiratory exam: Present: CTAB. Absent: accessory muscle use, rales, rhonchi, wheezes - Cardiovascular Cardiovascular exam: Present: RRR, +S1, +S2. Absent: diastolic murmur, gallop, rubs, systolic murmur - Expanded Upper Extremities Exam Upper Arm exam: Present: laceration (Sutured laceration intact) Internal Medicine: Result - Labs CBC & Chem 7: 12/01/16 10:16 12/01/16 14:26 Labs: Short CBC 12/01/16 Range/Units 10:16 WBC 9.4 (4.3-11.1) K/mcL Hgb 9.7 L (11.5-15.4) g/dL Hct 29.1 L (35.3-44.9) % Plt Count 154 (140-400) K/mcL Neutrophils # 8.3 (1.6-8.9) K/mcL BMP 12/01/16 12/01/16 10:16 14:26 Sodium 135 L Potassium 2.5 L* 2.3 L* Chloride 107 Carbon Dioxide 22 BUN 6 L D Creatinine 0.65 Glucose 97 Calcium 7.1 L Urine 12/01/16 Range/Units 04:30 Urine Color Yellow (Yellow) Urine Clarity Clear (Clear) Urine pH 7.0 (5.0-8.0) pH Units Ur Specific [place] 1.011 (1.010-1.025) Urine Protein Negative (Neg-Trace) mg/dL Urine Glucose (UA) Normal (Normal) mg/dL - ABG Interpretation ABG results: PT/INR, D-dimer PT 12.4 Seconds (9.4-12.1) H 11/27/16 15:48 - VTE Documentation of Mechanical Device: Intermittent pneumatic compression device Consult Discharge Plan - Plan Referrals: NONE,PCP [Primary Care Provider] -
[2016-12-02] MEDS ORDERED: Lisinopril 20 MG TABLET PO SCH (09:00)
[2016-12-02 10:33] LABS: Basophils % 0.2 %; Eosinophils # 0.3 K/mcL (0.0-0.6); Eosinophils % 3.1 %; Hematocrit 28.6 % (35.3-44.9); Hemoglobin 9.7 g/dL (11.5-15.4); Immature Granulocytes % 0.6 % (0-4); Lymphocytes # 0.8 K/mcL (0.6-4.6); Lymphocytes % 9.6 %; Mean Corpuscular HGB Conc 33.9 g/dL (31.6-35.5); Mean Corpuscular Hemoglobin 28.2 pg (28.0-33.3); Mean Corpuscular Volume 83.1 fL (83.0-100.0); Mean Platelet Volume 9.6 fL (9.4-12.4); Monocytes # 0.6 K/mcL (0.0-1.3); Monocytes % 7.6 %; Neutrophils # 6.3 K/mcL (1.6-8.9); Platelet Count 156 K/mcL (140-400); Red Blood Count 3.44 M/mcL (3.82-4.97); Red Cell Distribution Width 15.9 % (11.5-14.5); Segmented Neutrophils % 78.9 %
[2016-12-02 10:45] LABS: BUN/Creatinine Ratio 10 (6-26); Blood Urea Nitrogen 7 mg/dL (7-20); Carbon Dioxide 16 mEq/L (19-29); Chloride 107 mEq/L (98-109); Glucose 153 mg/dL (70-99); Osmolality,Calculated 275 (280-300); Sodium 132 mEq/L (136-145); eGFR For African Americans > 60 (> 60); eGFR For Non-African Americans > 60 (> 60)
[2016-12-02 14:52] VITALS: BP 134/75
--- NOTE | 2016-12-02 15:20 | Discharge Summary ---
Date of Encounter: 12/02/16 Time of Encounter: 10:00 - Discharge Diagnosis (1) GI bleed Priority: Primary Status: Resolved Qualifiers: GI bleed type/associated pathology: gastrointestinal hemorrhage with hematemesis Qualified Code(s): K92.0 - Hematemesis (2) Acute blood loss anemia Priority: Secondary Status: Resolved (3) Erosive esophagitis Priority: Primary Status: Acute (4) Hypokalemia Priority: Secondary Status: Acute (5) Essential hypertension Priority: Secondary Status: Chronic (6) Syncope Priority: Secondary Status: Resolved Qualifiers: Syncope type: unspecified Qualified Code(s): R55 - Syncope and collapse (7) Laceration of arm, left, complicated Priority: Secondary Status: Acute Qualifiers: Encounter type: initial encounter Qualified Code(s): S41.112A - Laceration without foreign body of left upper arm, initial encounter - Discharge Medications Prescriptions: Potassium Chloride 20 meq PO DAILY #30 tab.er.prt Home Medications: Lisinopril [Zestril] 20 mg PO DAILY tablet 12/02/16 [Rx] Omeprazole [PriLOSEC] 40 mg PO DAILY@0630 capsule.dr 12/02/16 [Rx] Potassium Chloride 20 meq PO DAILY #30 tab.er.prt 12/02/16 [Rx] Sucralfate [Carafate] 1 gm PO QIDAC [facility] 12/02/16 [Rx] Allergies/Adverse Reactions: 3 Allergy/AdvReac Type Severity Reaction Status Date / Time No Known Allergies Allergy Verified 01/12/16 16:43 Date of admission: 11/27/16 18:05 Primary care physician: PCP NONE Consults: 11/29/16 08:42 Consult to Physical Therapy [CONS] Routine Comment: Evaluate, develop and implement POC Reason for Consult: discharge planning, weakness OT [Consult to Occupational Therapy] [CONS] Routine Comment: Evaluate, develop and implement POC Reason for Consult: discharge planning, weakness 11/29/16 19:23 Consult to Plate And Weld Inspector [CONS] Routine Reason for SW Consult: poss ecf placement 12/01/16 19:05 Consult to Wound Care [CONS] Routine Reason for Consult: Left elbow skin tear with sutures (copious amounts of serousanguinous drng), left hand skin tear, left back of leg skin tear Call Completed: No - Patient Status Disposition: Transfer SNF Condition: Serious - Discharge Instructions Follow Up With: NONE,PCP [Primary Care Provider] - Hospital course: Patient is an 89 year old female with past medical history significant for TIA, hypertension and GERD, who presented to the ER on 11/27/16 after falling at home. Patient reported that when she got up from the toilet, she blacked out. She reported symptoms of occasional lightheadedness at home. In the ER, patient was noted to have injuries to her left arm, with laceration and left leg with skin tear. She was also noted to have 2 episodes of vomiting blood and bloody bowel movement. Patient was found to have a hemoglobin of 5.6. Patient was admitted to the medical floor for acute blood loss anemia secondary to upper GI bleed. During patients hospital stay, she received IV fluids and a total of 4 units of packed red blood cells; patient remained hemodynamically stable. She was placed on a PPI drip and GI was consulted. EGD showed severe distal esophagitis with multiple small red spots noted. GI placed one clip on the larger area and Argon coagulation was used to cauterize the other areas. No active bleeding before or after procedure per GI. Recommendations for patient to continue oral PPI and Carafate as an outpatient. In addition, patient was also found to have hypokalemia and potassium supplementation was given; she will need to continue oral potassium supplementation as an outpatient and to follow up with labs for potassium and hemoglobin. Patient will also need to continue dressing changes and suture removal in 7 days. Patient will be discharged to assisted facility for strengthening conditioning. - Time Spent with Patient Total time spent providing and/or coordinating discharge services: Less than 30 minutes - Constitutional Vitals: Temp Pulse Resp BP Pulse Ox 98.2 F 87 15 134/75 100 12/02/16 14:51 12/02/16 14:51 12/02/16 14:51 12/02/16 14:51 12/02/16 14:51 General appearance: Present: cachectic, A&O X 3, pleasant, answers questions appropriately - Cardiovascular Cardiovascular exam: Present: RRR, +S1, +S2. Absent: diastolic murmur, gallop, rubs, systolic murmur - VTE Documentation of Mechanical Device: Intermittent pneumatic compression device
--- NOTE | 2016-12-02 18:21 | Physician Discharge Referral ---
ExtendedCare Referral Info Provider in Charge after Transfer: PCP Institutional Level of Care: Skilled - Diagnosis (1) GI bleed Status: Resolved (2) Acute blood loss anemia Status: Resolved (3) Erosive esophagitis Status: Acute (4) Hypokalemia Status: Acute (5) Essential hypertension Status: Chronic (6) Syncope Status: Resolved (7) Laceration of arm, left, complicated Status: Acute - Transfer Medications Prescriptions: Potassium Chloride 20 meq PO DAILY #30 tab.er.prt Home Medications: Lisinopril [Zestril] 20 mg PO DAILY tablet 12/02/16 [Rx] Omeprazole [PriLOSEC] 40 mg PO DAILY@0630 capsule.dr 12/02/16 [Rx] Potassium Chloride 20 meq PO DAILY #30 tab.er.prt 12/02/16 [Rx] Sucralfate [Carafate] 1 gm PO QIDAC ud 12/02/16 [Rx] Allergies/Adverse Reactions: 3 Allergy/AdvReac Type Severity Reaction Status Date / Time No Known Allergies Allergy Verified 01/12/16 16:43 - Respiratory Orders Smoking Cessation: Smoking cessation has been advised. For more information, call the [place] Tobacco Quit Line at 4-972-NRHBNOW. - Mobility Orders Ambulate - Rehabiliation Orders Rehab Potential: Good Rehab Orders: Evaluation for Physical Therapy - Treatments Skin tear care topically daily PRN per policy CERTIFICATION: I certify that the transfer of the above named patient to an Extended Care Facility is necessary for the continuing treatment of the diagnosis listed. The above information is true and accurate reflection of patient's current condition. Confidential - Redisclosure prohibited without a patient's written consent.
== END 2016-12-02 19:42 | DRG 381 ==
LOC: EMEROO 13:01 → 2NNU 18:05 → SUATTDRO 18:05 → 2NNU 19:25 → ICNU 22:26 → 3ANU 11-28 19:40
PROVIDERS: ADMIT Nurse Practitioner Family; ATTEND Hospitalist

== ENCOUNTER 2017-04-29 13:53 | Inpatient (IN) ==
[2017-04-29] MEDS ORDERED: 0.9 % Sodium Chloride 1,000 ML IVC ONE ×2 (14:05→16:51)
[2017-04-29] MEDS ORDERED: Acetaminophen 650 MG RECTAL SUPP RC ONE (14:05)
--- NOTE | 2017-04-29 14:07 | Emergency Department Note ---
START Narrative - START START: START NOTE: Patient evaluated upon her arrival to the emergency department from [facility] by EMS. It was reported she has altered mental status. She appears elderly and frail on exam. She is febrile. Workup including labs through the sepsis pathway initiated. We will also obtain a chest x-ray and ECG. She will be given Tylenol and IV fluids
[2017-04-29 15:00] LABS: Basophils % 0.1 %; Hematocrit 30.6 % (35.3-44.9); Hemoglobin 9.9 g/dL (11.5-15.4); Immature Granulocytes % 0.2 % (0-4); Lymphocytes # 0.2 K/mcL (0.6-4.6); Lymphocytes % 1.7 %; Mean Corpuscular HGB Conc 32.4 g/dL (31.6-35.5); Mean Corpuscular Hemoglobin 26.5 pg (28.0-33.3); Mean Platelet Volume 8.8 fL (9.4-12.4); Monocytes # 0.4 K/mcL (0.0-1.3); Monocytes % 4.2 %; Neutrophils # 8.7 K/mcL (1.6-8.9); Platelet Count 199 K/mcL (140-400); Red Blood Count 3.73 M/mcL (3.82-4.97); Red Cell Distribution Width 19.4 % (11.5-14.5); Segmented Neutrophils % 93.8 %
[2017-04-29 15:12] LABS: INR 1.1; Prothrombin Time 11.8 Seconds (9.4-12.1)
[2017-04-29 15:17] LABS: Bilirubin,Urine Negative (Negative); Blood,Urine Negative (Negative); Clarity,Urine Clear (Clear); Color,Urine Yellow (Yellow); Glucose,Urine (UA) Normal (Normal); Ketones,Urine Trace mg/dL (Negative); Leukocyte Esterase,Urine Negative (Negative); Nitrite,Urine Negative (Negative); Protein,Urine Trace mg/dL (Neg-Trace); Specific Gravity,Urine 1.016 (1.010-1.025); Urobilinogen,Urine Normal (Normal)
[2017-04-29 15:19] LABS: Bacteria,Urine None Seen per hpf (None-Few); Hyaline Casts,Urine None Seen per lpf (None-Few); Squamous Epithelial Cell,Urine Many per lpf (None-Few); WBC,Urine 0-3 per hpf (0-3)
[2017-04-29 15:20] LABS: Alanine Aminotransferase 10 Units/L (7-52); Albumin 2.6 g/dL (3.5-5.7); Alkaline Phosphatase 57 Units/L (34-104); Aspartate Amino Transferase 19 Units/L (13-39); BUN/Creatinine Ratio 16 (6-26); Bilirubin,Direct 0.1 mg/dL (0.0-0.2); Bilirubin,Indirect 0.1 mg/dL (0.0-1.2); Bilirubin,Total 0.2 mg/dL (0.3-1.0); Blood Urea Nitrogen 9 mg/dL (8-23); Calcium 7.2 mg/dL (8.6-10.3); Carbon Dioxide 20 mEq/L (23-29); Chloride 99 mEq/L (98-107); Globulin 2.5 g/dL (2.4-3.5); Glucose 113 mg/dL (70-105); Magnesium 1.4 mg/dL (1.6-2.6); Osmolality,Calculated 261 (280-300); Phosphorous 2.8 mg/dL (2.7-4.5); Potassium 3.2 mEq/L (3.5-5.1); Sodium 126 mEq/L (136-145); Total Protein 5.1 g/dL (6.4-8.9); eGFR For Non-African Americans > 60 (> 60)
[2017-04-29] MEDS ORDERED: Azithromycin 500 MG in D5% in Water 250 ML IVPB STA (15:27)
[2017-04-29] MEDS ORDERED: Vancomycin 1,000 MG in D5% in Water 250 ML IVPB ONE (15:27)
[2017-04-29] MEDS ORDERED: Cefepime HCl 2,000 MG in Water for inj. (sterile) 20 ML 20 ML IVP STA (15:27)
--- NOTE | 2017-04-29 15:48 | Emergency Department Note ---
Disposition Clinical Impression: HCAP (healthcare-associated pneumonia) Disposition: Admitted As Inpatient Condition: Fair Time of Disposition: 15:45 Altered Mental Status HPI - General Chief Complaint: ED Altered Mental Status Stated Complaint: lethargic Time Seen by Provider: 04/29/17 14:01 Source: EMS Mode of arrival: ambulatory Limitations: altered mental status Nursing Notes Reviewed: Yes Vital Signs Reviewed: Yes - History of Present Illness HPI Narrative: History source: Patient is unable to provide information for this note. Info was gathered from the patient, family, hospital staff, the patient's chart. History limitations: Patient condition Medications: As per nurses note 89-year-old female brought to the emergency department by family for concerns of altered mental status. They state the patient is unable to carry conversation with them which is not her baseline. They state she has fallen out of bed multiple times over the past few weeks, last time being about 4 days ago. Patient is febrile on exam. They state that she has not been as interactive with them as she normally is. Patient lives in a long term facility. He only states she had recent dark stools with a history of bleeding esophageal ulcer which was evaluated previously at [facility] - Related Data Home Medications Medication Instructions Recorded Confirmed Acetaminophen [Tylenol] 650 mg PO Q6HR MDD PAIN/FEVER 04/29/17 04/29/17 Ferrous Sulfate 325 mg PO DAILY 04/29/17 04/29/17 GuaiFENesin/Dextromethorphan 10 ml PO Q6HR 04/29/17 04/29/17 [Robitussin/DM] Guaifenesin [Mucinex] 600 mg PO BID 04/29/17 04/29/17 Ipratropium/Albuterol Neb [Duoneb] 3 ml IH Q6HR PRN 04/29/17 04/29/17 cefTRIAXone [Rocephin] 1,000 mg IM DAILY 04/29/17 04/29/17 Previous Rx's Medication Instructions Recorded Lisinopril [Zestril] 20 mg PO DAILY tablet 12/02/16 Allergies Allergy/AdvReac Type Severity Reaction Status Date / Time No Known Allergies Allergy Verified 01/12/16 16:43 All systems ED: reviewed and negative except as stated. Review of Systems: As Per HPI Past Medical History - Past Medical History Attestation: Yes The following information was validated with the patient. 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 No wheezing on exam. Musculoskeletal: Normal strength, no tenderness, swelling or deformity. Moving all extremities GI: Soft, nontender, nondistended. Bowel sounds present Neuro: Patient follows commands but is unable to answer questions. - General General appearance: lethargic Course Vital Signs Temperature 101.6 F H 04/29/17 14:00 Pulse Rate 64 04/29/17 14:00 Respiratory Rate 18 04/29/17 14:00 Blood Pressure 131/50 04/29/17 14:00 O2 Sat by Pulse Oximetry 98 04/29/17 14:00 Temperature 97.6 F 04/29/17 18:53 Pulse Rate 90 04/29/17 18:53 Respiratory Rate 16 04/29/17 18:53 Blood Pressure 108/59 04/29/17 18:53 O2 Sat by Pulse Oximetry 92 04/29/17 18:53 Oxygen Delivery Oxygen Delivery Nasal Cannula Altered Mental Status - MDM Narrative Medical decision making narrative: CT of the head and C-spine negative for intracranial hemorrhage or fracture. Patient treated with antibiotics for likely healthcare associated pneumonia as she is from a long term facility. He and patient comfortable with the plan for admission to hospital for further care and evaluation. Rectal exam performed in the emergency department which did not show evidence of guaiac positive stool. BP dropped after initial evaluation however this improved after fluid bolus. - Medical Records Medical records reviewed: Yes I reviewed the patient's medical records. - Lab Data Lab results reviewed: Yes I reviewed the patient's lab results. Result diagrams: 04/29/17 14:52 04/29/17 14:52 Lab Results 04/29/17 04/29/17 04/29/17 Range/Units 14:52 14:52 14:52 WBC 9.3 D (4.3-11.1) K/mcL RBC 3.73 L (3.82-4.97) M/mcL Hgb 9.9 L (11.5-15.4) g/dL Hct 30.6 L (35.3-44.9) % MCV 82.0 L (83.0-100.0) fL MCH 26.5 L (28.0-33.3) pg MCHC 32.4 (31.6-35.5) g/dL RDW 19.4 H (11.5-14.5) % Plt Count 199 (140-400) K/mcL MPV 8.8 L (9.4-12.4) fL Immature Gran % 0.2 (0-4) % Seg Neutrophils % 93.8 % Lymphocytes % 1.7 % Monocytes % 4.2 % Eosinophils % 0.0 % Basophils % 0.1 % Neutrophils # 8.7 (1.6-8.9) K/mcL Lymphocytes # 0.2 L (0.6-4.6) K/mcL Monocytes # 0.4 (0.0-1.3) K/mcL Eosinophils # 0.0 (0.0-0.6) K/mcL Basophils # 0.0 (0.0-0.2) K/mcL PT 11.8 (9.4-12.1) Seconds INR 1.1 Sodium 126 L (136-145) mEq/L Potassium 3.2 L (3.5-5.1) mEq/L Chloride 99 (98-107) mEq/L Carbon Dioxide 20 L (23-29) mEq/L BUN 9 (8-23) mg/dL Creatinine 0.57 L (0.60-1.20) mg/dL Est GFR ( Amer) > 60 (> 60) Est GFR (Non-Af Amer) > 60 (> 60) BUN/Creatinine Ratio 16 (6-26) Glucose 113 H (70-105) mg/dL Calculated Osmolality 261 L (280-300) Lactic Acid (0.5-2.2) mmol/L Calcium 7.2 L (8.6-10.3) mg/dL Phosphorus 2.8 (2.7-4.5) mg/dL Magnesium 1.4 L (1.6-2.6) mg/dL Total Bilirubin 0.2 L (0.3-1.0) mg/dL Direct Bilirubin 0.1 (0.0-0.2) mg/dL Indirect Bilirubin 0.1 (0.0-1.2) mg/dL AST 19 (13-39) Units/L ALT 10 (7-52) Units/L Alkaline Phosphatase 57 (34-104) Units/L Troponin I (< 0.04) ng/mL Serum Total Protein 5.1 L (6.4-8.9) g/dL Albumin 2.6 L (3.5-5.7) g/dL Globulin 2.5 (2.4-3.5) g/dL Albumin/Globulin Ratio 1.0 L (1.1-2.2) Urine Color (Yellow) Urine Clarity (Clear) Urine pH (5.0-8.0) pH Units Ur Specific [employer] (1.010-1.025) Urine Protein (Neg-Trace) mg/dL Urine Glucose (UA) (Normal) mg/dL Urine Ketones (Negative) mg/dL Urine Blood (Negative) Urine Nitrite (Negative) Urine Bilirubin (Negative) Urine Urobilinogen (Normal) mg/dL Ur Leukocyte Esterase (Negative) Urine Microscopic RBC (0-3) per hpf Urine Microscopic WBC (0-3) per hpf Ur Squamous Epith Cells (None-Few) per lpf Urine Bacteria (None-Few) per hpf Hyaline Casts (None-Few) per lpf Ur Culture Indicated? (NO) 04/29/17 04/29/17 04/29/17 Range/Units 14:52 14:52 15:00 WBC (4.3-11.1) K/mcL RBC (3.82-4.97) M/mcL Hgb (11.5-15.4) g/dL Hct (35.3-44.9) % MCV (83.0-100.0) fL MCH (28.0-33.3) pg MCHC (31.6-35.5) g/dL RDW (11.5-14.5) % Plt Count (140-400) K/mcL MPV (9.4-12.4) fL Immature Gran % (0-4) % Seg Neutrophils % % Lymphocytes % % Monocytes % % Eosinophils % % Basophils % % Neutrophils # (1.6-8.9) K/mcL Lymphocytes # (0.6-4.6) K/mcL Monocytes # (0.0-1.3) K/mcL Eosinophils # (0.0-0.6) K/mcL Basophils # (0.0-0.2) K/mcL PT (9.4-12.1) Seconds INR Sodium (136-145) mEq/L Potassium (3.5-5.1) mEq/L Chloride (98-107) mEq/L Carbon Dioxide (23-29) mEq/L BUN (8-23) mg/dL Creatinine (0.60-1.20) mg/dL Est GFR ( Amer) (> 60) Est GFR (Non-Af Amer) (> 60) BUN/Creatinine Ratio (6-26) Glucose (70-105) mg/dL Calculated Osmolality (280-300) Lactic Acid 1.3 (0.5-2.2) mmol/L Calcium (8.6-10.3) mg/dL Phosphorus (2.7-4.5) mg/dL Magnesium (1.6-2.6) mg/dL Total Bilirubin (0.3-1.0) mg/dL Direct Bilirubin (0.0-0.2) mg/dL Indirect Bilirubin (0.0-1.2) mg/dL AST (13-39) Units/L ALT (7-52) Units/L Alkaline Phosphatase (34-104) Units/L Troponin I 0.03 (< 0.04) ng/mL Serum Total Protein (6.4-8.9) g/dL Albumin (3.5-5.7) g/dL Globulin (2.4-3.5) g/dL Albumin/Globulin Ratio (1.1-2.2) Urine Color Yellow (Yellow) Urine Clarity Clear (Clear) Urine pH 6.0 (5.0-8.0) pH Units Ur Specific [employer] 1.016 (1.010-1.025) Urine Protein Trace (Neg-Trace) mg/dL Urine Glucose (UA) Normal (Normal) mg/dL Urine Ketones Trace H (Negative) mg/dL Urine Blood Negative (Negative) Urine Nitrite Negative (Negative) Urine Bilirubin Negative (Negative) Urine Urobilinogen Normal (Normal) mg/dL Ur Leukocyte Esterase Negative (Negative) Urine Microscopic RBC 3-5 H (0-3) per hpf Urine Microscopic WBC 0-3 (0-3) per hpf Ur Squamous Epith Cells Many H (None-Few) per lpf Urine Bacteria None Seen (None-Few) per hpf Hyaline Casts None Seen (None-Few) per lpf Ur Culture Indicated? NO (NO) - Radiology Data Radiology results reviewed: Yes I reviewed the patient's radiology results. - EKG Data EKG attestation: Yes I reviewed and interpreted this EKG. EKG results narrative: Sinus tachycardia with a rate of 121 with multiple PVCs. No STEMI. TPA Checklist - LKW: 3-4.5 hrs Add. Warnings/Precautions Patient/family understanding: The patient/family members have been counseled and understood the risk, benefit , and alternatives of treatment.
[2017-04-29] MEDS ORDERED: Oseltamivir 6 MG/ML UDC PO ONE (16:21)
--- NOTE | 2017-04-29 16:26 | Internal Med History&Physical ---
<SaleemMarbella burrell - Last Filed: 04/29/17 16:19> Date of Encounter: 04/29/17 Time of Encounter: 16:19 Assessment and Plan (1) Sepsis Current visit: No Status: Acute patient admitted from a care home. Arrived with concerns for altered mental status. In ED, patient was tachycardic, had temperature of 101.6. Source of infection likely secondary to each HCAP, influenza Chest x-ray showed bilateral lower lobe opacities likely representing pneumonia. In the emergency department, patient received 1 L fluid bolus and vancomycin, azithromycin, Cefepime, Tamiflu Plan: CT head pending CT spine pending continue Tamiflu vancomycin, zosyn, Levaquin maintenance fluids blood culture X2 sputum culture PRN Xopenex, as patient is tachycardic NPO for now, she is risk for aspiration in setting of altered mental status. Consult to speech therapy for further evaluations regarding diet. Qualifiers: Sepsis type: sepsis due to unspecified organism Qualified Code(s): A41.9 - Sepsis, unspecified organism (2) HCAP (healthcare-associated pneumonia) Current visit: Yes Status: Acute Plan as above (3) Influenza Current visit: Yes Status: Acute (4) Hyponatremia Current visit: No Status: Acute Chronic hypovolemic hyponatremia likely secondary to decreased oral intake. Plan: continue maintenance fluids (5) Altered mental status Current visit: Yes Status: Acute Altered mental status likely secondary to sepsis. Plan: CT head pending Qualifiers: Altered mental status type: unspecified Qualified Code(s): R41.82 - Altered mental status, unspecified (6) Anemia Current visit: Yes Status: Acute Patient is chronically anemic has history of upper G.I. bleed with ulcers. Plan: continue ferrous sulfate monitor HG, transfuse as needed. Qualifiers: Anemia type: unspecified type Qualified Code(s): D64.9 - Anemia, unspecified (7) Generalized weakness Current visit: No Status: Acute Consult to PT/OT (8) Hyperlipidemia Current visit: No Status: Chronic Qualifiers: Hyperlipidemia type: unspecified Qualified Code(s): E78.5 - Hyperlipidemia , unspecified (9) DVT prophylaxis Current visit: No Status: Acute lovenox Internal Medicine - H&P: HPI Chief complaint: altered mental status Admitted From: Emergency Dept Plans for Post Hospital Care: [facility] History of present illness: Ms. Littlejohn is a 89 year old female with past medical history of hypertension, Gerd, history of TIA, hyperlipidemia. She is a poor historian and there were no family members present at bedside during examination. Per ED records, patient arrived to the emergency department for concerns of altered mental status. She resides in a care home. She did have falls out of the bed multiple times in the past few weeks. There were also reports of dark/tarry stools. She has a history of dark stools with prior esophageal ulcer. She was recently hospitalized back in 11/2016. At that time, she had an EGD done which showed severe distal esophagitis, multiple small red spots with clip placed and Center coagulation to cauterize. There is no active bleeding present at that time. She had a rectal exam performed in the emergency department, which did not show guiac positive stool. Upon questioning the patient, she was able to provide very little history. She denies nausea, vomiting, diarrhea, chest pain , shortness of breath. She was not able to provide any further history. Past Med Surg Social Fam HX - Past Medical History Medical history: GERD, hyperlipidemia, hypertension, TIA Psychiatric history: no psych history - Past Surgical History Surgical History: cholecystectomy, orthopedic, other - Social History Smoking Status: Never smoker Smokeless Tobacco Status: No Alcohol use: none Drug use: none - Family History Mother Living Status: Hx Family Cancer: Yes Hx Family Endocrine Disorder: Yes Internal Medicine - H&P: Meds Lisinopril [Zestril] 20 mg PO DAILY tablet 12/02/16 [Rx] Acetaminophen [Tylenol] 650 mg PO Q6HR MDD PAIN/FEVER 04/29/17 [History] Ferrous Sulfate 325 mg PO DAILY 04/29/17 [History] GuaiFENesin/Dextromethorphan [Robitussin/DM] 10 ml PO Q6HR 04/29/17 [History] Guaifenesin [Mucinex] 600 mg PO BID 04/29/17 [History] Ipratropium/Albuterol Neb [Duoneb] 3 ml IH Q6HR PRN 04/29/17 [History] cefTRIAXone [Rocephin] 1,000 mg IM DAILY 04/29/17 [History] 3 Allergy/AdvReac Type Severity Reaction Status Date / Time No Known Allergies Allergy Verified 01/12/16 16:43 ROS unobtainable: due to mental status All Systems PM: A 10-system review of systems was performed and is negative for pertinent findings except as documented above in the HPI. - Constitutional Vitals: Temp Pulse Resp BP Pulse Ox 101.6 F H 64 18 131/50 98 04/29/17 14:00 04/29/17 14:00 04/29/17 14:00 04/29/17 14:00 04/29/17 14:00 General appearance: Present: A&O X 1, mild distress. Absent: answers questions appropriately Exam: Patient did have some evidence of abdominal breathing. - Head Head exam: Present: atraumatic, normocephalic - Neck Neck exam general surgery: Present: supple, trachea midline - Respiratory Additional comments: Diffuse course breath sounds present. - Cardiovascular Cardiovascular exam: Present: tachycardia - GI/Abdominal GI/Abdominal exam: Present: normal bowel sounds, soft. Absent: distended, tenderness - Extremities Exam Extremities exam: Absent: cyanotic, pedal edema Additional comments: Patient had pads present on her heels - Neurological Exam Additional comments: Patient has altered mental status and is not able to provide any history. She appears confused. She is only alert and oriented to herself. - Psychiatric Psychiatric exam: Present: flat affect - Skin Additional comments: Skin appears very dry, thin, some bruises president on various areas throughout the body. Internal Med - H&P Results - Labs CBC & Chem 7: 04/29/17 14:52 04/29/17 14:52 <Len Asher - Last Filed: 04/29/17 17:28> Date of Encounter: 04/29/17 Internal Medicine - H&P: HPI History of present illness: Ms. Littlejohn is a 89 year old female All Systems PM: A 10-system review of systems was performed and is negative for pertinent findings except as documented above in the HPI. - Constitutional Vitals: Temp Pulse Resp BP Pulse Ox 101.6 F H 64 18 131/50 98 04/29/17 14:00 04/29/17 14:00 04/29/17 14:00 04/29/17 14:00 04/29/17 14:00 Internal Med - H&P Results - Labs CBC & Chem 7: 04/29/17 14:52 04/29/17 14:52 - Attending Attestation I personally interviewed and examined this patient. I agree with the findings, assessment, and plan of Dr. Flores, internal medicine resident. Patient to be admitted to the internal medicine service for healthcare associated pneumonia and influenza infection. Agree with antibiotics as outlined. She will remain in the emergency department until we get clearance from CT of head and spine which were ordered. Family is present at bedside. Patient is a DNR. She did drop her blood pressure in the emergency department and family states that patient would not want pressors. Therefore we will continue with fluid resuscitation as necessary, and also give boluses of normal saline as needed. Her most recent blood pressure appears improved. She does have advanced dementia. All else as outlined above.
[2017-04-29] MEDS ORDERED: Levalbuterol Neb 1.25 MG/3 ML IH PRN (16:51)
[2017-04-29] MEDS ORDERED: Potassium Chloride 20 MEQ, Lidocaine 1% 2 ML in D5% in Water 250 ML IVPB ONE (17:11)
[2017-04-29] MEDS: Oseltamivir Phosphate 30 MG CAPSULE PO SCH ×3 (18:20→22:33)
[2017-04-29] MEDS: 0.9 % Sodium Chloride 1,000 ML IVC SCH (21:54)
[2017-04-30] MEDS: Piperacillin/Tazobactam 3.375 GM in 0.9 % Sodium Chloride Mini Bag 100 ML IVPB SCH ×2 (00:21→10:40)
[2017-04-30 03:54] LABS: Basophils % 0.1 %; Hematocrit 29.7 % (35.3-44.9); Hemoglobin 9.6 g/dL (11.5-15.4); Immature Granulocytes % 0.3 % (0-4); Lymphocytes # 1.3 K/mcL (0.6-4.6); Lymphocytes % 12.4 %; Mean Corpuscular HGB Conc 32.3 g/dL (31.6-35.5); Mean Corpuscular Hemoglobin 26.5 pg (28.0-33.3); Mean Platelet Volume 9.2 fL (9.4-12.4); Monocytes # 0.4 K/mcL (0.0-1.3); Monocytes % 3.5 %; Neutrophils # 8.5 K/mcL (1.6-8.9); Platelet Count 179 K/mcL (140-400); Red Blood Count 3.62 M/mcL (3.82-4.97); Red Cell Distribution Width 19.3 % (11.5-14.5); Segmented Neutrophils % 83.7 %
[2017-04-30 05:22] LABS: BUN/Creatinine Ratio 16 (6-26); Blood Urea Nitrogen 9 mg/dL (8-23); Calcium 7.3 mg/dL (8.6-10.3); Carbon Dioxide 19 mEq/L (23-29); Chloride 102 mEq/L (98-107); Glucose 86 mg/dL (70-105); Osmolality,Calculated 260 (280-300); Potassium 4.1 mEq/L (3.5-5.1); Sodium 126 mEq/L (136-145); eGFR For Non-African Americans > 60 (> 60)
[2017-04-30] MEDS: *HR* Enoxaparin 40 MG/0.4 ML SYRINGE SQ SCH (05:57)
[2017-04-30 06:42] LABS: Platelet Estimate Normal (Normal)
[2017-04-30 06:45] LABS: Reactive Lymphocytes Present (Not Present)
--- NOTE | 2017-04-30 07:44 | Internal Med Progress Note ---
<Bette May - Last Filed: 04/30/17 15:06> Date of Encounter: 04/30/17 Time of Encounter: 09:00 - Assessment and plan (1) Sepsis Current Visit: No Status: Acute Assessment and plan: Arrived wtih AMS, tachycardic, and febrile 101.6 with a CXR showing lower lob opacities. In the emergency department, patient received 1 L fluid bolus and vancomycin, azithromycin, Cefepime, Tamiflu. CT head showed fluid in the left maxillary sinus, possible sinusitis and neck no acute processes. Plan: - antibiotics: Levaquin and Flagyl. Add Flagyl (04/30 initiated) to cover atypicals, d/c Vanco, zosyn, and Levaquin (day 04/16) - continue fluids NS 80ml/hr - BC pending - sputum culture pending - can probably switch to PO Flagyl tomorrow, to prepare for discharge Qualifiers: Sepsis type: sepsis due to unspecified organism Qualified Code(s): A41.9 - Sepsis, unspecified organism (2) HCAP (healthcare-associated pneumonia) Current Visit: Yes Status: Acute Assessment and plan: No fever since admission. Currently on NC 2L. WBC wnl. Plans: - Levoalbuterol - sputum culture pending -antibiotics: Levaquin 04/16, Flagyl stated today, d/c Vancomycin, Zosyn, (3) Altered mental status Current Visit: Yes Status: Acute Assessment and plan: Altered mental status likely secondary to sepsis. CT head negative. Improved today. Unsure of baseline but patient knows her name and where she is. Plan: Continue with fluids and antibiotics. - diet: regular - consider speech eval, for possible aspiration pneumonia. Qualifiers: Altered mental status type: unspecified Qualified Code(s): R41.82 - Altered mental status, unspecified (4) Influenza Current Visit: Yes Status: Acute Assessment and plan: + influenza A. Plan: - begin Tamiflu -contact precautions (5) Generalized weakness Current Visit: No Status: Acute Assessment and plan: strength 5/5 in all extremities. Unsure of baseline. Continue to monitor. (6) Hyponatremia Current Visit: No Status: Acute Assessment and plan: Chronically low. hypovolemic hyponatremia likely secondary to decreased oral intake. Possible dehydration as no recorded urine output yet. Plan: continue maintenance fluids (7) DVT prophylaxis Current Visit: No Status: Acute Assessment and plan: Lovenox SQ (8) Anemia Current Visit: Yes Status: Acute Assessment and plan: hx of esophageal ulcer. + occult blood. Currently hemoglobin stable. Continue to monitor. Qualifiers: Anemia type: unspecified type Qualified Code(s): D64.9 - Anemia, unspecified - Subjective Interval history: Ms. Littlejohn is a 89 year old female with past medical history of hypertension, Gerd, esophageal ulcers, history of TIA, hyperlipidemia presented to the ED from the [facility] for AMS 2/2 to influenza A and HCAP. Today patient is oriented to self and location and thinks she is doing well today. Patient thinks that it is February. Patient states that she eats Cheerios at the correction. Patient states that she has been coughing but denies shortness of breath, chest pain, abdominal pain. A 10-system review of systems was performed and is negative for pertinent findings except as documented above in the HPI. - Constitutional Vitals: Temp Pulse Resp BP Pulse Ox 99.5 F 86 16 122/95 95 04/30/17 07:00 04/30/17 07:00 04/30/17 07:00 04/30/17 07:00 04/30/17 07:00 General appearance: Present: A&O X 1, mild distress. Absent: answers questions appropriately Exam: Constitutional: Alert, in no acute distress, diffuse atrophy, malnurished. A&O x 2 Head: Normocephalic, atraumatic, Heart: Normal, regular rate and rhythm, no murmurs Lungs: + rales, and rhonchi bilaterally, no use of accessory muscles on NC Abdomen: Soft, nondistended, nontender, bowel sounds present and normal, no guarding or rigidity. Extremities: No clubbing, cyanosis, or edema, radial pulse +2/4, capillary refill <2sec. Skin: Skin warm and dry, no lesions, no rashes, no jaundice Neurologic: Cranial nerves II through XII grossly intact, no focal deficits strength 5/5 in all extremities Psych: Cooperative with exam, good eye contact during direct conversation, speech clear, Internal Medicine: Result - Labs CBC & Chem 7: 04/30/17 03:26 04/30/17 03:26 Labs: Short CBC 04/30/17 Range/Units 03:26 WBC 10.2 (4.3-11.1) K/mcL Hgb 9.6 L (11.5-15.4) g/dL Hct 29.7 L (35.3-44.9) % Plt Count 179 (140-400) K/mcL Neutrophils # 8.5 (1.6-8.9) K/mcL BMP 04/30/17 03:26 Sodium 126 L Potassium 4.1 D Chloride 102 Carbon Dioxide 19 L BUN 9 Creatinine 0.56 L Glucose 86 Calcium 7.3 L - ABG Interpretation ABG results: PT/INR, D-dimer PT 11.8 Seconds (9.4-12.1) 04/29/17 14:52 Consult Discharge Plan - Plan Referrals: NONE,PCP [Primary Care Provider] - <Len Asher - Last Filed: 04/30/17 15:33> Date of Encounter: 04/30/17 - Constitutional Vitals: Temp Pulse Resp BP Pulse Ox 96.8 F L 87 16 110/58 94 04/30/17 11:00 04/30/17 11:00 04/30/17 11:00 04/30/17 11:00 04/30/17 11:00 Internal Medicine: Result - Labs CBC & Chem 7: 04/30/17 03:26 04/30/17 03:26 Labs: Short CBC 04/30/17 Range/Units 03:26 WBC 10.2 (4.3-11.1) K/mcL Hgb 9.6 L (11.5-15.4) g/dL Hct 29.7 L (35.3-44.9) % Plt Count 179 (140-400) K/mcL Neutrophils # 8.5 (1.6-8.9) K/mcL BMP 04/30/17 03:26 Sodium 126 L Potassium 4.1 D Chloride 102 Carbon Dioxide 19 L BUN 9 Creatinine 0.56 L Glucose 86 Calcium 7.3 L - ABG Interpretation ABG results: PT/INR, D-dimer PT 11.8 Seconds (9.4-12.1) 04/29/17 14:52 - Attending Attestation I performed an independent examination and interview of this patient. I agree with the findings, assessment, and plan of Dr. May, internal medicine international specialist. Patient is much improved this morning. She is now awake and alert minimally confused. Her sepsis is resolving. We did de-escalate her antibiotics to Levaquin and Flagyl to cover for healthcare acquired versus aspiration pneumonia. She is currently day 2 of antibiotics, anticipate a 10 day course. She is also day #2 of Tamiflu for influenza A infection, five-day course. Her altered mental status is improving. Mario mental status changes are also related to hyponatremia, likely hypovolemic in nature. Continue IV fluids. Monitor. All else as outlined above.
[2017-04-30] MEDS ORDERED: Levofloxacin 750 MG/150 ML 750 MG/150 ML BAG IVPB SCH (09:00)
[2017-04-30] MEDS: Oseltamivir Phosphate 30 MG CAPSULE PO SCH ×2 (09:00→22:12)
[2017-04-30] MEDS: 0.9 % Sodium Chloride 1,000 ML IVC SCH ×2 (10:39→22:38)
[2017-04-30] MEDS: MetroNIDAZOLE 500 MG/100 ML 500 MG/100 ML BAG IVPB SCH ×2 (15:29→23:33)
[2017-04-30] MEDS: Acetaminophen 325 MG TABLET PO PRN (15:29)
[2017-05-01 06:12] LABS: Basophils % 0.2 %; Hematocrit 30.8 % (35.3-44.9); Hemoglobin 9.8 g/dL (11.5-15.4); Lymphocytes # 1.2 K/mcL (0.6-4.6); Lymphocytes % 11.7 %; Mean Corpuscular HGB Conc 31.8 g/dL (31.6-35.5); Mean Corpuscular Hemoglobin 26.3 pg (28.0-33.3); Mean Corpuscular Volume 82.6 fL (83.0-100.0); Mean Platelet Volume 9.7 fL (9.4-12.4); Monocytes # 0.3 K/mcL (0.0-1.3); Monocytes % 3.1 %; Neutrophils # 8.7 K/mcL (1.6-8.9); Platelet Count 166 K/mcL (140-400); Red Blood Count 3.73 M/mcL (3.82-4.97); Red Cell Distribution Width 19.6 % (11.5-14.5)
[2017-05-01 06:31] LABS: BUN/Creatinine Ratio 17 (6-26); Blood Urea Nitrogen 10 mg/dL (8-23); Calcium 7.6 mg/dL (8.6-10.3); Carbon Dioxide 15 mEq/L (23-29); Chloride 106 mEq/L (98-107); Glucose 56 mg/dL (70-105); Osmolality,Calculated 267 (280-300); Potassium 3.5 mEq/L (3.5-5.1); Sodium 130 mEq/L (136-145); eGFR For Non-African Americans > 60 (> 60)
[2017-05-01] MEDS: *HR* Enoxaparin 40 MG/0.4 ML SYRINGE SQ SCH (06:45)
[2017-05-01 06:53] LABS: Platelet Estimate Normal (Normal)
[2017-05-01 06:54] LABS: Anisocytosis 1+ (Not Present); Burr Cells 1+ (Not Present); Poikilocytosis 1+ (Not Present)
--- NOTE | 2017-05-01 07:48 | Internal Med Progress Note ---
<Len Asher Sandy - Last Filed: 05/01/17 12:05> Date of Encounter: 05/01/17 - Constitutional Vitals: Temp Pulse Resp BP Pulse Ox 97.4 F L 82 16 150/76 98 05/01/17 07:26 05/01/17 07:26 05/01/17 07:26 05/01/17 07:26 05/01/17 07:55 Internal Medicine: Result - Labs CBC & Chem 7: 05/01/17 05:21 05/01/17 05:21 Labs: Short CBC 05/01/17 Range/Units 05:21 WBC 10.4 (4.3-11.1) K/mcL Hgb 9.8 L (11.5-15.4) g/dL Hct 30.8 L (35.3-44.9) % Plt Count 166 (140-400) K/mcL Neutrophils # 8.7 (1.6-8.9) K/mcL BMP 05/01/17 05:21 Sodium 130 L Potassium 3.5 Chloride 106 Carbon Dioxide 15 L BUN 10 Creatinine 0.59 L Glucose 56 L Calcium 7.6 L - ABG Interpretation ABG results: PT/INR, D-dimer PT 11.8 Seconds (9.4-12.1) 04/29/17 14:52 Consult Discharge Plan - Plan Referrals: NONE,PCP [Primary Care Provider] - - Attending Attestation I performed an independent history and examination of this patient. I am in agreement with the findings, assessment, and plan of Dr. May, internal medicine purchasing intern. Patient continues to show improvement. Her sepsis is resolving. Patient is now on Levaquin and Flagyl, day 3 of a planned 10 day course for healthcare associated pneumonia versus aspiration pneumonia. She also is day 3 of Tamiflu for influenza A infection, 5 day course. Her sodium is improving but still needs IV fluids for hypovolemic type hyponatremia. Her mental status changes have improved significantly. She does have underlying dementia. Patient is satting 98% on room air and remained hemodynamically stable. She is mildly hypertensive and I will start low dose Lopressor. Anticipate discharge in 1-2 days if she continues to do well. All else per Dr. May's note. <Bette May - Last Filed: 05/01/17 13:13> Date of Encounter: 05/01/17 Time of Encounter: 10:05 - Assessment and plan (1) Sepsis Current Visit: No Status: Acute Assessment and plan: Arrived wtih AMS, tachycardic, and febrile 101.6 with a CXR showing lower lob opacities. In the emergency department, patient received 1 L fluid bolus and vancomycin, azithromycin, Cefepime, Tamiflu. CT head showed fluid in the left maxillary sinus, possible sinusitis and neck no acute processes. Plan: - antibiotics: Levaquin (05/14) and Flagyl (04/16). d/c Vanco, zosyn, - continue fluids NS 80ml/hr - BC pending - sputum culture prelim: few gram + and gram - Qualifiers: Sepsis type: sepsis due to unspecified organism Qualified Code(s): A41.9 - Sepsis, unspecified organism (2) HCAP (healthcare-associated pneumonia) Current Visit: Yes Status: Acute Assessment and plan: No fever since admission. Currently on NC 2L. WBC wnl. Plans: - Levoalbuterol - sputum culture prelim with few gram + and - -antibiotics: Levaquin 05/14, Flagyl stated 04/16, d/c Vancomycin, Zosyn. (3) Altered mental status Current Visit: Yes Status: Acute Assessment and plan: Altered mental status likely secondary to sepsis. CT head negative. Improved today. Unsure of baseline but patient knows her name and where she is. Plan: Continue with fluids and antibiotics. - diet: regular - consider speech eval, for possible aspiration pneumonia Qualifiers: Altered mental status type: unspecified Qualified Code(s): R41.82 - Altered mental status, unspecified (4) Influenza Current Visit: Yes Status: Acute Assessment and plan: + influenza A. Plan: - begin Tamiflu -droplet precautions (5) Generalized weakness Current Visit: No Status: Acute Assessment and plan: strength 5/5 in all extremities. Unsure of baseline. Continue to monitor. (6) Hyponatremia Current Visit: No Status: Acute Assessment and plan: Chronically low. hypovolemic hyponatremia likely secondary to decreased oral intake. Plan: continue maintenance fluids (7) DVT prophylaxis Current Visit: No Status: Acute Assessment and plan: Lovenox SQ (8) Anemia Current Visit: Yes Status: Acute Assessment and plan: hx of esophageal ulcer. + occult blood. Currently hemoglobin stable. Continue to monitor. Qualifiers: Anemia type: unspecified type Qualified Code(s): D64.9 - Anemia, unspecified (9) Essential hypertension Current Visit: No Status: Chronic Assessment and plan: restarted home lisinopril 20mg daily. monitor BP today for improvement. - Subjective Interval history: Ms. Littlejohn is a 89 year old female with past medical history of hypertension, Gerd, esophageal ulcers, history of TIA, hyperlipidemia presented to the ED from the [facility] for AMS 2/2 to influenza A and HCAP. This morning, nursing staff reported screaming but patient stated that she was not in pain and they were unsure why she was screaming. Today patient is oriented to self and location. Patient has been eating well and is on her home O2 level. Patient states that she has been coughing but denies shortness of breath, chest pain, abdominal pain. A 10-system review of systems was performed and is negative for pertinent findings except as documented above in the HPI. - Constitutional Vitals: Temp Pulse Resp BP Pulse Ox 97.4 F L 82 16 150/76 98 05/01/17 07:26 05/01/17 07:26 05/01/17 07:26 05/01/17 07:26 05/01/17 07:26 General appearance: Present: A&O X 1, mild distress. Absent: answers questions appropriately Exam: Constitutional: Alert, in no acute distress, diffuse atrophy, malnurished. A&O x 2 Head: Normocephalic, atraumatic, Heart: Normal, regular rate and rhythm, no murmurs Lungs: + rhonchi bilaterally Abdomen: Soft, nondistended, nontender, bowel sounds present and normal, no guarding or rigidity. Extremities: No clubbing, cyanosis, or edema, radial pulse +2/4, capillary refill <2sec. Skin: Skin warm and dry, no lesions, no rashes, no jaundice Neurologic: Cranial nerves II through XII grossly intact, no focal deficits strength 5/5 in all extremities Psych: Cooperative with exam, good eye contact during direct conversation, speech clear, Internal Medicine: Result - Labs CBC & Chem 7: 05/01/17 05:21 05/01/17 05:21 Labs: Short CBC 05/01/17 Range/Units 05:21 WBC 10.4 (4.3-11.1) K/mcL Hgb 9.8 L (11.5-15.4) g/dL Hct 30.8 L (35.3-44.9) % Plt Count 166 (140-400) K/mcL Neutrophils # 8.7 (1.6-8.9) K/mcL BMP 05/01/17 05:21 Sodium 130 L Potassium 3.5 Chloride 106 Carbon Dioxide 15 L BUN 10 Creatinine 0.59 L Glucose 56 L Calcium 7.6 L - ABG Interpretation ABG results: PT/INR, D-dimer PT 11.8 Seconds (9.4-12.1) 04/29/17 14:52 - VTE Documentation of Mechanical Device: Graduated compression elastic hosiery
[2017-05-01] MEDS ORDERED: Aminoglycoside Consult 1 EACH MC ONE (07:49)
[2017-05-01] MEDS: Oseltamivir Phosphate 30 MG CAPSULE PO SCH ×2 (07:49→20:27)
[2017-05-01] MEDS: metroNIDAZOLE 500 MG TABLET PO SCH ×3 (09:32→20:27)
[2017-05-01] MEDS: Lisinopril 20 MG TABLET PO SCH (09:33)
[2017-05-01] MEDS: 0.9 % Sodium Chloride 1,000 ML IVC SCH ×2 (13:19→13:20)
[2017-05-01] MEDS: Acetaminophen 325 MG TABLET PO PRN (20:26)
[2017-05-02] MEDS: 0.9 % Sodium Chloride 1,000 ML IVC SCH ×3 (02:00→12:29)
[2017-05-02 04:19] LABS: Alanine Aminotransferase 9 Units/L (7-52); Albumin 2.3 g/dL (3.5-5.7); Albumin/Globulin Ratio 0.9 (1.1-2.2); Alkaline Phosphatase 48 Units/L (34-104); Aspartate Amino Transferase 22 Units/L (13-39); BUN/Creatinine Ratio 11 (6-26); Bilirubin,Total 0.2 mg/dL (0.3-1.0); Blood Urea Nitrogen 7 mg/dL (8-23); Calcium 7.4 mg/dL (8.6-10.3); Carbon Dioxide 16 mEq/L (23-29); Chloride 106 mEq/L (98-107); Globulin 2.5 g/dL (2.4-3.5); Glucose 71 mg/dL (70-105); Magnesium 1.9 mg/dL (1.6-2.6); Osmolality,Calculated 264 (280-300); Phosphorous 1.7 mg/dL (2.7-4.5); Sodium 129 mEq/L (136-145); Total Protein 4.8 g/dL (6.4-8.9); eGFR For Non-African Americans > 60 (> 60)
[2017-05-02] MEDS: *HR* Enoxaparin 40 MG/0.4 ML SYRINGE SQ SCH (05:49)
--- NOTE | 2017-05-02 07:51 | Internal Med Progress Note ---
Date of Encounter: 05/02/17 Time of Encounter: 14:07 - Assessment and plan (1) Sepsis Current Visit: Yes Status: Acute Assessment and plan: Blood cultures are negative. WBC count is normal. On levofloxacin for pneumonia. Also on Tamiflu. Continue current management. Will also check stool for C. difficile as patient is having diarrhea. Moderate risk for complications. Qualifiers: Sepsis type: sepsis due to unspecified organism Qualified Code(s): A41.9 - Sepsis, unspecified organism (2) Altered mental status Current Visit: Yes Status: Acute Assessment and plan: Patient is awake and alert and able to participate in some conversation today. Answers some questions appropriately. Altered mental state is believed to be due to sepsis. Qualifiers: Altered mental status type: unspecified Qualified Code(s): R41.82 - Altered mental status, unspecified (3) Anemia Current Visit: Yes Status: Chronic Assessment and plan: With prior history of GI bleed. Hemoglobin levels have remained stable here. Continue iron supplementation Qualifiers: Anemia type: other cause Other causes of anemia: other cause, not classified Qualified Code(s): D64.89 - Other specified anemias (4) Essential hypertension Current Visit: Yes Status: Chronic Assessment and plan: Uncontrolled. On lisinopril. Will add beta nancy. (5) Generalized weakness Current Visit: No Status: Acute Assessment and plan: Consult with PT and OT. Patient resides at skilled rehabilitation where she will be discharged to when medically stable. (6) HCAP (healthcare-associated pneumonia) Current Visit: Yes Status: Acute Assessment and plan: Management as above with levofloxacin (7) Hyponatremia Current Visit: Yes Status: Acute Assessment and plan: Patient remains hyponatremic. Suspect SIADH. Will check urine sodium levels. Stop IV fluids. (8) Influenza Current Visit: Yes Status: Acute Assessment and plan: On Tamiflu. Complete 5 day treatment course. (9) Hypokalemia Current Visit: Yes Status: Acute Assessment and plan: We will replete with K-Phos as patient also has low phosphorus levels. (10) DVT prophylaxis Current Visit: Yes Status: Acute Assessment and plan: On lovenox - Subjective Interval history: Patient seen earlier today. Was complaining of diarrhea. Denies any chest pain or shortness of breath at this time. No fever overnight. No nausea or vomiting. No abdominal pain reported. - Constitutional Vitals: Temp Pulse Resp BP Pulse Ox 97.4 F L 72 16 177/70 99 05/02/17 06:58 05/02/17 06:58 05/02/17 06:58 05/02/17 06:58 05/02/17 06:58 General appearance: Present: cooperative, A&O X 1, mild distress, underweight. Absent: answers questions appropriately - Neck Neck exam general surgery: Present: supple, trachea midline. Absent: lymphadenopathy - Respiratory Respiratory exam: Present: CTAB. Absent: accessory muscle use, rales, rhonchi, wheezes - Cardiovascular Cardiovascular exam: Present: RRR, +S1, +S2. Absent: diastolic murmur, gallop, rubs, systolic murmur - GI/Abdominal GI/Abdominal exam: Present: normal bowel sounds, soft, no peritoneal signs. Absent: distended, tenderness - Neurological Exam Neurological exam: Present: alert, no focal deficits. Absent: facial droop, speech deficit Internal Medicine: Result - Labs CBC & Chem 7: 05/01/17 05:21 05/02/17 03:12 Labs: BMP 05/02/17 03:12 Sodium 129 L Potassium 3.0 L Chloride 106 Carbon Dioxide 16 L BUN 7 L Creatinine 0.62 Glucose 71 Calcium 7.4 L Liver Function 05/02/17 Range/Units 03:12 Total Bilirubin 0.2 L (0.3-1.0) mg/dL AST 22 (13-39) Units/L ALT 9 (7-52) Units/L Alkaline Phosphatase 48 (34-104) Units/L Albumin 2.3 L (3.5-5.7) g/dL - ABG Interpretation ABG results: PT/INR, D-dimer PT 11.8 Seconds (9.4-12.1) 04/29/17 14:52 - VTE Documentation of Mechanical Device: Graduated compression elastic hosiery Consult Discharge Plan - Plan Referrals: NONE,PCP [Primary Care Provider] -
[2017-05-02] MEDS: metroNIDAZOLE 500 MG TABLET PO SCH ×3 (10:30→23:34)
[2017-05-02] MEDS: levoFLOXacin 750 MG TABLET PO SCH (10:30)
[2017-05-02] MEDS: Lisinopril 20 MG TABLET PO SCH (10:31)
[2017-05-02] MEDS: Oseltamivir Phosphate 30 MG CAPSULE PO SCH ×2 (10:31→23:34)
[2017-05-02] MEDS ORDERED: Potassium Phosphate 44 MEQ in 0.9 % Sodium Chloride 250 ML IVPB ONE (11:29)
[2017-05-02] MEDS: Nystatin POWDER 30 GM BOTTLE TP SCH ×2 (14:41→23:50)
[2017-05-02 14:45] LABS: Sodium, Urine 100.8 mEq/L
[2017-05-03 03:58] LABS: Basophils % 0.1 %; Eosinophils % 0.1 %; Hematocrit 30.4 % (35.3-44.9); Hemoglobin 9.9 g/dL (11.5-15.4); Immature Granulocytes % 0.5 % (0-4); Lymphocytes # 0.6 K/mcL (0.6-4.6); Mean Corpuscular HGB Conc 32.6 g/dL (31.6-35.5); Mean Corpuscular Hemoglobin 26.5 pg (28.0-33.3); Mean Corpuscular Volume 81.5 fL (83.0-100.0); Mean Platelet Volume 9.5 fL (9.4-12.4); Monocytes # 0.5 K/mcL (0.0-1.3); Monocytes % 4.8 %; Neutrophils # 8.8 K/mcL (1.6-8.9); Platelet Count 172 K/mcL (140-400); Red Blood Count 3.73 M/mcL (3.82-4.97); Red Cell Distribution Width 19.2 % (11.5-14.5); Segmented Neutrophils % 88.5 %
[2017-05-03 04:28] LABS: BUN/Creatinine Ratio 6 (6-26); Blood Urea Nitrogen 3 mg/dL (8-23); Calcium 7.3 mg/dL (8.6-10.3); Carbon Dioxide 16 mEq/L (23-29); Chloride 104 mEq/L (98-107); Glucose 72 mg/dL (70-105); Osmolality,Calculated 269 (280-300); Potassium 3.1 mEq/L (3.5-5.1); Sodium 132 mEq/L (136-145); eGFR For Non-African Americans > 60 (> 60)
[2017-05-03] MEDS: *HR* Enoxaparin 40 MG/0.4 ML SYRINGE SQ SCH (06:53)
[2017-05-03] MEDS: metroNIDAZOLE 500 MG TABLET PO SCH ×3 (09:26→22:45)
[2017-05-03] MEDS: Lisinopril 20 MG TABLET PO SCH (09:26)
[2017-05-03] MEDS: Oseltamivir Phosphate 30 MG CAPSULE PO SCH ×2 (09:26→22:45)
[2017-05-03] MEDS: Nystatin POWDER 30 GM BOTTLE TP SCH ×3 (14:06→23:05)
--- NOTE | 2017-05-03 17:37 | Electrocardiograph Report ---
[place] [id number] Test Date: 2017-04-29 Pat Name: Nishi Littlejohn Department: 103 Room: [facility] Gender: F [employer] Temperer: JOE : 1925 Requested By: Otto Cerna Order Number: [id number] Reading MD: Dex Carballo Measurements Intervals [place] Rate: 121 P: 54 ID: [id number] QRS: 51 QRSD: 80 T: 50 QT: 325 QTc: 397 Interpretive Statements SINUS TACHYCARDIA WITH FREQUENT ECTOPIC PREMATURE COMPLEXES MINIMAL ST DEPRESSION ABNORMAL RHYTHM ECG Electronically Signed On 05-03-2017 17:35:29 EST by Dex Carballo
--- NOTE | 2017-05-03 18:31 | Internal Med Progress Note ---
Date of Encounter: 05/03/17 Time of Encounter: 11:00 - Assessment and plan (1) Sepsis Current Visit: Yes Status: Acute Assessment and plan: Blood cultures are negative. WBC count is normal. On levofloxacin and Flagyl for pneumonia. Also on Tamiflu for influenza A. Qualifiers: Sepsis type: sepsis due to unspecified organism Qualified Code(s): A41.9 - Sepsis, unspecified organism (2) HCAP (healthcare-associated pneumonia) Current Visit: Yes Status: Acute Assessment and plan: Continue Levaquin/Flagyl (3) Influenza Current Visit: Yes Status: Acute Assessment and plan: On Tamiflu. Complete 5 day treatment course. (4) Altered mental status Current Visit: Yes Status: Acute Assessment and plan: Patient alert and oriented 3 this morning but does have episodes of confusion Suspect secondary to sepsis secondary to HCAP/influenza A Qualifiers: Altered mental status type: unspecified Qualified Code(s): R41.82 - Altered mental status, unspecified (5) Hyponatremia Current Visit: Yes Status: Acute Assessment and plan: Sodium slowly improving to 132 this morning Continue to monitor (6) Essential hypertension Current Visit: Yes Status: Chronic Assessment and plan: Improving; Continue OMDI inhibitor and beta nancy (7) DVT prophylaxis Current Visit: Yes Status: Acute Assessment and plan: On lovenox - Subjective Interval history: Patient alert and oriented 3 this morning but does have episodes of confusion Suspect secondary to sepsis secondary to HCAP/influenza A - Constitutional Vitals: Temp Pulse Resp BP Pulse Ox 97.6 F 89 18 155/89 98 05/03/17 14:42 05/03/17 14:42 05/03/17 14:42 05/03/17 14:42 05/03/17 14:42 General appearance: Present: cooperative, A&O X 1, mild distress, A&O X 3, no acute distress, underweight. Absent: answers questions appropriately - Respiratory Respiratory exam: Present: CTAB. Absent: accessory muscle use, rales, rhonchi, wheezes - Cardiovascular Cardiovascular exam: Present: RRR, +S1, +S2. Absent: diastolic murmur, gallop, rubs, systolic murmur - Neurological Exam Neurological exam: Present: oriented X3 (Intermittent confusion) Internal Medicine: Result - Labs CBC & Chem 7: 05/03/17 03:08 05/03/17 03:08 Labs: Short CBC 05/03/17 Range/Units 03:08 WBC 10.0 (4.3-11.1) K/mcL Hgb 9.9 L (11.5-15.4) g/dL Hct 30.4 L (35.3-44.9) % Plt Count 172 (140-400) K/mcL Neutrophils # 8.8 (1.6-8.9) K/mcL BMP 05/03/17 03:08 Sodium 132 L Potassium 3.1 L Chloride 104 Carbon Dioxide 16 L BUN 3 L Creatinine 0.50 L Glucose 72 Calcium 7.3 L - ABG Interpretation ABG results: PT/INR, D-dimer PT 11.8 Seconds (9.4-12.1) 04/29/17 14:52 - VTE Documentation of Mechanical Device: Graduated compression elastic hosiery Consult Discharge Plan - Plan Referrals: NONE,PCP [Primary Care Provider] - (patient is from [facility])
[2017-05-04] MEDS: *HR* Enoxaparin 40 MG/0.4 ML SYRINGE SQ SCH (05:44)
[2017-05-04 10:09] LABS: Basophils % 0.1 %; Eosinophils % 0.6 %; Hematocrit 30.1 % (35.3-44.9); Hemoglobin 9.7 g/dL (11.5-15.4); Immature Granulocytes % 0.7 % (0-4); Lymphocytes # 0.9 K/mcL (0.6-4.6); Lymphocytes % 12.4 %; Mean Corpuscular HGB Conc 32.2 g/dL (31.6-35.5); Mean Corpuscular Hemoglobin 26.1 pg (28.0-33.3); Mean Corpuscular Volume 81.1 fL (83.0-100.0); Mean Platelet Volume 9.4 fL (9.4-12.4); Monocytes # 0.5 K/mcL (0.0-1.3); Monocytes % 6.8 %; Neutrophils # 5.7 K/mcL (1.6-8.9); Platelet Count 165 K/mcL (140-400); Red Blood Count 3.71 M/mcL (3.82-4.97); Red Cell Distribution Width 19.5 % (11.5-14.5); Segmented Neutrophils % 79.4 %
[2017-05-04 10:41] LABS: BUN/Creatinine Ratio 6 (6-26); Blood Urea Nitrogen 3 mg/dL (8-23); Calcium 7.5 mg/dL (8.6-10.3); Carbon Dioxide 17 mEq/L (23-29); Chloride 103 mEq/L (98-107); Glucose 119 mg/dL (70-105); Osmolality,Calculated 270 (280-300); Potassium 2.9 mEq/L (3.5-5.1); Sodium 131 mEq/L (136-145); eGFR For Non-African Americans > 60 (> 60)
[2017-05-04] MEDS: levoFLOXacin 750 MG TABLET PO SCH (11:17)
[2017-05-04] MEDS: Lisinopril 20 MG TABLET PO SCH (11:17)
[2017-05-04] MEDS: Nystatin POWDER 30 GM BOTTLE TP SCH (11:17)
[2017-05-04 11:20] LABS: Reactive Lymphocytes Present (Not Present)
[2017-05-04] MEDS: metroNIDAZOLE 500 MG TABLET PO SCH (11:43)
[2017-05-04 15:09] VITALS: BP 140/82
--- NOTE | 2017-05-04 15:37 | Discharge Summary ---
- NOTES TO OUTPATIENT PROVIDER Notes to Outpatient Provider: Finish a 3 day course of Levaquin for pneumonia Date of Encounter: 05/04/17 Time of Encounter: 11:00 - Discharge Diagnosis (1) Sepsis Priority: Primary Status: Acute Qualifiers: Sepsis type: sepsis due to unspecified organism Qualified Code(s): A41.9 - Sepsis, unspecified organism (2) HCAP (healthcare-associated pneumonia) Priority: Primary Status: Acute (3) Influenza Priority: Primary Status: Acute (4) Altered mental status Priority: Secondary Status: Acute Qualifiers: Altered mental status type: unspecified Qualified Code(s): R41.82 - Altered mental status, unspecified (5) Hyponatremia Priority: Primary Status: Acute (6) Essential hypertension Priority: Secondary Status: Chronic Hospital course: Patient is an 89-year-old female with past medical history significant for hypertension, GERD, history of TIA and hyperlipidemia who presents to the ER on 05/01/17 due to altered mental status. Patient is a poor historian but apparently was sent from the assisted secondary to change in mental status with addition of falls in the past few weeks. In the ER, patient was found to be hyponatremic and positive for influenza A addition to pneumonia. She was admitted to the medical surgical floor for further management. During patients hospital stay her altered mental status resolved and returned back to her baseline cognition after treatment for influenza A and pneumonia with Tamiflu and Levaquin in addition to Flagyl. Patient's hyponatremia also improved close to baseline. She will be discharged back to [facility] to continue a 3 day course of Levaquin. - Time Spent with Patient Total time spent providing and/or coordinating discharge services: Less than 30 minutes - Discharge Medications Home Medications: Lisinopril [Zestril] 20 mg PO DAILY tablet 12/02/16 [Rx] Acetaminophen [Tylenol] 650 mg PO Q6HR MDD PAIN/FEVER 04/29/17 [History] Ferrous Sulfate 325 mg PO DAILY 04/29/17 [History] GuaiFENesin/Dextromethorphan [Robitussin/Dm] 10 ml PO Q6HR 04/29/17 [History] Guaifenesin [Mucinex] 600 mg PO BID 04/29/17 [History] Ipratropium/Albuterol Neb [Duoneb] 3 ml IH Q6HR PRN 04/29/17 [History] levoFLOXacin [Levaquin] 750 mg PO Q48H #3 tablet 05/04/17 [Rx] Allergies/Adverse Reactions: 3 Allergy/AdvReac Type Severity Reaction Status Date / Time milk Allergy Abdominal Verified 04/30/17 09:40 Pain Date of admission: 05/01/17 17:06 Primary care physician: PCP NONE Consults: 05/02/17 11:14 Consult to Wrist Liner [CONS] Routine Reason for SW Consult: rtn signature - Constitutional Vitals: Temp Pulse Resp BP Pulse Ox 98.5 F 65 14 140/82 95 05/04/17 15:00 05/04/17 15:00 05/04/17 15:00 05/04/17 15:00 05/04/17 15:00 General appearance: Present: cooperative, A&O X 1, mild distress, A&O X 3, no acute distress, underweight. Absent: answers questions appropriately - Respiratory Respiratory exam: Present: CTAB. Absent: accessory muscle use, rales, rhonchi, wheezes - Cardiovascular Cardiovascular exam: Present: RRR, +S1, +S2. Absent: diastolic murmur, gallop, rubs, systolic murmur - Patient Status Disposition: Transfer Intermediate Care Fac Condition: Fair - Discharge Instructions Follow Up With: NONE,PCP [Primary Care Provider] - (patient is from [facility]) Forms: ED Satisfaction Letter - VTE Documentation of Mechanical Device: Graduated compression elastic hosiery
--- NOTE | 2017-05-04 15:40 | Physician Discharge Referral ---
ExtendedCare Referral Info Institutional Level of Care: Skilled - Diagnosis (1) Sepsis Priority: Primary Status: Acute (2) HCAP (healthcare-associated pneumonia) Priority: Primary Status: Acute (3) Influenza Priority: Primary Status: Acute (4) Altered mental status Priority: Secondary Status: Acute (5) Hyponatremia Priority: Primary Status: Acute (6) Essential hypertension Priority: Secondary Status: Chronic - Transfer Medications Home Medications: Lisinopril [Zestril] 20 mg PO DAILY tablet 12/02/16 [Rx] Acetaminophen [Tylenol] 650 mg PO Q6HR MDD PAIN/FEVER 04/29/17 [History] Ferrous Sulfate 325 mg PO DAILY 04/29/17 [History] GuaiFENesin/Dextromethorphan [Robitussin/Dm] 10 ml PO Q6HR 04/29/17 [History] Guaifenesin [Mucinex] 600 mg PO BID 04/29/17 [History] Ipratropium/Albuterol Neb [Duoneb] 3 ml IH Q6HR PRN 04/29/17 [History] levoFLOXacin [Levaquin] 750 mg PO Q48H #3 tablet 05/04/17 [Rx] Allergies/Adverse Reactions: 3 Allergy/AdvReac Type Severity Reaction Status Date / Time milk Allergy Abdominal Verified 04/30/17 09:40 Pain - Respiratory Orders Smoking Cessation: Smoking cessation has been advised. For more information, call the [place] Tobacco Quit Line at 7-557-EGVENOW. CERTIFICATION: I certify that the transfer of the above named patient to an Extended Care Facility is necessary for the continuing treatment of the diagnosis listed. The above information is true and accurate reflection of patient's current condition. Confidential - Redisclosure prohibited without a patient's written consent.
== END 2017-05-04 17:10 | DRG 871 ==
LOC: EMEROO 13:53 → 2ANU 13:53 → SUATTDRO 05-01 17:06
PROVIDERS: ADMIT Family Medicine; ATTEND Hospitalist